=== PATIENT | male | born 1940 | race Caucasian/White ===

== ENCOUNTER 2017-04-11 13:09 | Inpatient (IN) | payer MEDICARE, MEDICAID ==
--- NOTE | 2017-04-11 13:23 | ED PDOC ---
Arrival/HPI - General Chief Complaint: Chest Pain Time Seen by Provider: 04/11/17 13:11 Historian: Patient - History of Present Illness Narrative History of Present Illness (Text): 04/11/17 13:20 A 76 year old male was sent into the emergency department by PMD for worsening shortness of breath and left sided chest pain over the past 5 days. Patient notes a productive cough. He denies any relieving or exacerbating factors. Patient denies any fever, chills, nausea, vomiting, abdominal pain or any other complaints. PMD: Dr. De Santiago Time/Duration: Other (5 days) Symptom Course: Worsening Quality: Other Context: Home Past Medical History - Provider Review Nursing Documentation Reviewed: Yes - Infectious Disease Hx of Infectious Diseases: None - Tetanus Immunization Tetanus Immunization: Unknown - Cardiac Hx Cardiac Disorders: Yes Hx Hypertension: Yes - Pulmonary Hx Chronic Obstructive Pulmonary Disease (COPD): Yes Hx Emphysema: Yes Other/Comment: former smoker - Neurological Hx Neurological Disorder: No - HEENT Hx HEENT Disorder: Yes Hx Cataracts: Yes - Renal Hx Kidney Stones: Yes - Endocrine/Metabolic Hx Endocrine Disorders: No - Hematological/Oncological Hx Cancer: Yes (skin) - Integumentary Hx Dermatological Disorder: Yes (skin cancer) - Musculoskeletal/Rheumatological Hx Falls: No - Gastrointestinal Other/Comment: Hernia - Genitourinary/Gynecological Hx Genitourinary Disorders: Yes - Psychiatric Hx Psychophysiologic Disorder: No Hx Substance Use: No - Surgical History Other/Comment: skin cancer removal - behind right ear - Anesthesia Hx Anesthesia Reactions: No Hx Malignant Hyperthermia: No - Suicidal Assessment Feels Threatened In Home Enviroment: No Family/Social History - Physician Review Nursing Documentation Reviewed: Yes Family/Social History: No Known Family HX Smoking Status: Former Smoker Hx Alcohol Use: Yes Hx Substance Use: No Hx Substance Use Treatment: No Allergies/Home Meds Allergies/Adverse Reactions: Allergies ampicillin Allergy (Verified 01/04/16 14:45) RASH Penicillins Allergy (Verified 01/04/16 14:46) RASH Sulfa (Sulfonamide Antibiotics) Allergy (Verified 01/04/16 14:45) RASH Home Medications: Home Meds Medication Instructions Recorded Confirmed Albuterol Sulfate [Ventolin Hfa] 0.09 mg IH PRN PRN 09/29/13 01/08/16 Fluticasone/Salmeterol 250/50 1 puff IH BID 05/02/14 01/08/16 [Advair Diskus 250/50] Tamsulosin Hydrochloride 0.4 mg PO DAILY 05/02/14 01/08/16 Loratadine 10 mg PO DAILY 08/14/15 01/08/16 Montelukast Sodium [Singulair] 10 mg PO DAILY 08/14/15 01/08/16 Ranitidine HCl 1 tab PO DAILY 08/14/15 01/08/16 Simvastatin [Zocor] 20 mg PO DAILY 08/14/15 01/08/16 Theophylline [Bronkodyl] 200 mg PO BID 08/14/15 01/08/16 Review of Systems - Physician Review All systems were reviewed & negative as marked: Yes - Review of Systems Constitutional: absent: Fevers, Night Sweats Respiratory: SOB, Cough, Sputum Cardiovascular: Chest Pain Gastrointestinal: absent: Abdominal Pain, Nausea, Vomiting Physical Exam Vital Signs Temp Pulse Pulse Resp BP BP Pulse Ox 04/11/17 19:19 99 H 22 128/86 95 04/11/17 16:48 99 H 20 110/72 97 04/11/17 14:22 82 102/59 L 04/11/17 13:21 98.1 F 102 H 20 117/82 97 Appearance: Positive for: Well-Appearing, Non-Toxic, Comfortable Pain Distress: None Mental Status: Positive for: Alert and Oriented X 3 - Systems Exam Head: Present: Atraumatic, Normocephalic Pupils: Present: PERRL Extroacular Muscles: Present: EOMI Conjunctiva: Present: Normal Mouth: Present: Moist Mucous Membranes Neck: Present: Normal Range of Motion Respiratory/Chest: Present: Good Air Exchange, Wheezes (Diffuse wheezing). No: Respiratory Distress, Accessory Muscle Use Cardiovascular: Present: Regular Rate and Rhythm, Normal S1, S2. No: Murmurs Abdomen: Present: Normal Bowel Sounds. No: Tenderness, Distention, Peritoneal Signs Back: Present: Normal Inspection Upper Extremity: Present: Normal Inspection. No: Cyanosis, Edema Lower Extremity: Present: Normal Inspection. No: Edema Neurological: Present: GCS=15, CN II-XII Intact, Speech Normal Skin: Present: Warm, Dry, Normal Color. No: Rashes Psychiatric: Present: Alert, Oriented x 3, Normal Insight, Normal Concentration Medical Decision Making ED Course and Treatment: 04/11/17 13:20 Impression: A 76 year old male sent in by PMD for shortness of breath and chest pain. Patient notes productive cough. Plan: -- Chest xray -- EKG -- Urinalysis -- Duoneb and Solumedrol -- Reassess and disposition Progress Notes: EKG shows sinus tachycardia at 105 BPM with RBBB, no interval changes. Interpreted by me. Report Date : 04/11/2017 14:27:53 Procedure: Chest xray Dictator : Slava Handley MD IMPRESSION: COPD with a lucency in the left upper lobe. No evidence of pneumonia 04/11/17 18:10 pt with persistnet wheezing, also chest pain concerning for cardiac etiology. dr marcia robert. dr gay accepts. failure of outpt management. - Lab Interpretations Lab Results: 04/11/17 14:20 04/11/17 14:20 Lab Results 04/11/17 14:20: Sodium 143, Chloride 102, Potassium 4.0, Carbon Dioxide 30, Anion Gap 15, BUN 16, Creatinine 0.8, Est GFR ( Amer) > 60, Est GFR (Non- Af Amer) > 60, Random Glucose 89, Calcium 9.2, Magnesium 2.0, Total Bilirubin 0.6, AST 22, ALT 28, Alkaline Phosphatase 44, Lactate Dehydrogenase 484, Total Creatine Kinase 106, Troponin I < 0.01, NT-Pro-B Natriuret Pep 160, Total Protein 6.7, Albumin 4.1, Globulin 2.6, Albumin/Globulin Ratio 1.6 04/11/17 14:20: PT 12.1 H, INR 1.12 H, APTT 24.5 04/11/17 14:20: WBC 6.6, RBC 4.67, Hgb 14.2, Hct 42.4, MCV 90.8, MCH 30.4, MCHC 33.5, RDW 13.9, Plt Count 194, MPV 9.3, Gran % 83.3 H, Lymph % (Auto) 10.2 L, Garza % (Auto) 5.7, Eos % (Auto) 0.5 L, Baso % (Auto) 0.3, Gran # 5.53, Lymph # 0.7 L, Garza # 0.4, Eos # 0.0, Baso # 0.02 08/07/17 14:20: pO2 26 L, VBG pH 7.30 L, VBG pCO2 58.0, VBG HCO3 28.5 H, VBG Total CO2 30.3 H, VBG O2 Sat (Calc) 58.0, VBG Base Excess 0.8, VBG Potassium 4.5 , Sodium 155.0 H, Chloride 93.0 L, Glucose 93, Lactate 1.5, FiO2 21.0, Venous Blood Potassium 4.5 I have reviewed the lab results: Yes - RAD Interpretation Radiology Orders: 04/11/17 13:20 CHEST PORTABLE [RAD] Stat - Medication Orders Current Medication Orders: Alprazolam (Xanax) 0.25 mg PO HS [facility] PRN Reason: Protocol Stop: 04/20/17 22:01 Last Admin: 04/13/17 21:37 Dose: 0.25 mg Arformoterol Tartrate (Brovana) 15 mcg IH [id number] [facility] Last Admin: 04/14/17 07:24 Dose: Aspirin (Ecotrin) 81 mg PO DAILY [facility] Atorvastatin Calcium (Lipitor) 20 mg PO DIN [facility] Budesonide (Pulmicort Respules) 0.5 mg IH [id number] [facility] Last Admin: 04/14/17 07:24 Dose: Clopidogrel Bisulfate (Plavix) 75 mg PO DAILY [facility] Last Admin: 04/14/17 06:44 Dose: 75 mg Famotidine (Pepcid) 20 mg PO HS [facility] Last Admin: 04/13/17 21:37 Dose: 20 mg Furosemide (Lasix) 20 mg IVP ONCE ONE Stop: 04/14/17 13:01 Sodium Chloride (Sodium Chloride 0.9%) 1,000 mls @ 100 mls/hr IV .Q10H [facility] Stop: 04/14/17 18:00 Insulin Human Regular (Humulin R Low) 0 units SC ACHS [facility] PRN Reason: Protocol Last Admin: 04/14/17 09:31 Dose: Not Given Non-Admin Reason: NPO Levalbuterol HCl (Xopenex) 0.63 mg IH [id number] PRN PRN Reason: Shortness of Breath Last Admin: 04/13/17 13:09 Dose: 0.63 mg Levofloxacin/Dextrose (Levaquin 750mg) 750 mg IVPB DAILY [facility] Last Admin: 04/13/17 10:57 Dose: 750 mg Loratadine (Claritin) 10 mg PO DAILY [facility] Last Admin: 04/13/17 10:54 Dose: 10 mg Methylprednisolone (Solu-Medrol) 30 mg IVP Q12 [facility] Last Admin: 04/13/17 21:37 Dose: 30 mg Montelukast Sodium (Singulair) 10 mg PO HS [facility] Last Admin: 04/13/17 21:37 Dose: 10 mg Tamsulosin HCl (Flomax) 0.4 mg PO DAILY [facility] Last Admin: 04/13/17 10:55 Dose: 0.4 mg Comments: does not scan Theophylline (Brett-24) 200 mg PO DAILY [facility] Last Admin: 04/13/17 10:53 Dose: 200 mg Comments: does not scan Discontinued Medications Albuterol/Ipratropium (Duoneb 3 Mg/0.5 Mg (3 Ml) Ud) 3 ml IH Q15M [facility] Stop: 04/11/17 14:01 Last Admin: 04/11/17 15:27 Dose: 3 ml Alprazolam (Xanax) 0.25 mg PO ONE PRN Reason: Protocol Stop: 04/12/17 22:01 Last Admin: 04/12/17 21:28 Dose: 0.25 mg Re-Assess: Reassess Psych Meds Document 04/12/17 22:28 FG (Rec: 04/12/17 22:47 FG [id number]) Reassess Psych Med Effective Aminophylline (Aminophylline 25 Mg/Ml Inj) Confirm Administered Dose 250 mg .ROUTE .STK-MED ONE Stop: 04/12/17 12:35 Last Admin: 04/12/17 12:50 Dose: 100 mg Comments: given during stress as per order by Dr. Reynolds Aspirin (Ecotrin) 81 mg PO STAT [facility] Stop: 04/11/17 17:16 Last Admin: 04/11/17 17:30 Dose: 81 mg Aspirin (Ecotrin) 325 mg PO DAILY [facility] Last Admin: 04/14/17 06:44 Dose: 325 mg Atorvastatin Calcium (Lipitor) 10 mg PO DIN [facility] Last Admin: 04/13/17 18:52 Dose: 10 mg Clopidogrel Bisulfate (Plavix) 300 mg PO STAT [facility] Stop: 04/13/17 08:49 Last Admin: 04/13/17 10:56 Dose: 300 mg Clopidogrel Bisulfate (Plavix) Confirm Administered Dose 75 mg .ROUTE .STK-MED ONE Stop: 04/14/17 06:43 Enoxaparin Sodium (Lovenox) 40 mg SC STAT [facility] PRN Reason: Protocol Stop: 04/11/17 17:19 Last Admin: 04/11/17 17:30 Dose: 40 mg Enoxaparin Sodium (Lovenox) 40 mg SC DAILY [facility] PRN Reason: Protocol Stop: 04/13/17 11:00 Last Admin: 04/13/17 10:54 Dose: 40 mg Eptifibatide (Integrilin Bolus) Confirm Administered Dose 40 mg IVP .STK-MED ONE Stop: 04/14/17 09:45 Fentanyl (Fentanyl) Confirm Administered Dose 100 mcg .ROUTE .STK-MED ONE Stop: 04/14/17 09:15 Heparin Sodium (Porcine) (Heparin) Confirm Administered Dose 10,000 units .ROUTE .STK-MED ONE Stop: 04/14/17 09:07 Heparin Sodium (Porcine) (Heparin 1000 Units/500 Ml Ns) Confirm Administered Dose 1,500 mls @ ud IV .STK-MED ONE Stop: 04/14/17 08:49 Nitroglycerin/Dextrose (Nitroglycerin 50 Mg/250 Ml D5w) Confirm Administered Dose 50 mg in 250 mls @ ud IV .STK-MED ONE Stop: 04/14/17 09:08 Iodixanol (Visipaque 320 Mg/Ml 100 Ml) Confirm Administered Dose 100 ml IV .STK- MED ONE Stop: 04/14/17 09:45 Iodixanol (Visipaque 320 Mg/Ml 100 Ml) Confirm Administered Dose 100 ml IV .STK- MED ONE Stop: 04/14/17 10:17 Iohexol (Omnipaque 350mg/Ml 50 Ml) Confirm Administered Dose 50 ml .ROUTE .STK- MED ONE Stop: 04/14/17 08:48 Iohexol (Omnipaque 350 150 Ml) Confirm Administered Dose 150 ml .ROUTE .STK-MED ONE Stop: 04/14/17 08:49 Lidocaine HCl (Lidocaine 2% 20ml Vial) Confirm Administered Dose 20 ml .ROUTE .STK-MED ONE Stop: 04/14/17 08:48 Methylprednisolone (Solu-Medrol) 125 mg IVP STAT [facility] Stop: 04/11/17 13:22 Last Admin: 04/11/17 14:47 Dose: 125 mg Methylprednisolone (Solu-Medrol) 40 mg IVP Q12 [facility] Last Admin: 04/12/17 14:52 Dose: 40 mg Midazolam HCl (Versed Inj) Confirm Administered Dose 2 mg .ROUTE .STK-MED ONE Stop: 04/14/17 09:15 Pantoprazole Sodium (Protonix Ec Tab) 40 mg PO STAT [facility] Stop: 04/11/17 23:29 Last Admin: 04/12/17 00:16 Dose: 40 mg Phenylephrine HCl (Phenylephrine Inj) Confirm Administered Dose 10 mg .ROUTE .STK-MED ONE Stop: 04/14/17 08:48 Regadenoson (Lexiscan) Confirm Administered Dose 0.4 mg IVP .STK-MED ONE Stop: 04/12/17 12:35 Last Admin: 04/12/17 12:45 Dose: 0.4 mg Comments: given during stress test by Dr. Reynolds Theophylline (Brett-Dur) 200 mg PO BID [facility] Verapamil HCl (Verapamil Inj) Confirm Administered Dose 5 mg IVP .STK-MED ONE Stop: 04/14/17 09:07 - Scribe Statement The provider has reviewed the documentation as recorded by the Scribe Disposition/Present on Arrival - Present on Arrival Any Indicators Present on Arrival: No History of DVT/PE: No History of Uncontrolled Diabetes: No Urinary Catheter: No History of Decub. Ulcer: No History Surgical Site Infection Following: None - Disposition Have Diagnosis and Disposition been Completed?: Yes Diagnosis: COPD exacerbation Disposition: HOSPITALIZED Disposition Time: 04:00 Patient Problems: Current Active Problems Problem Status Onset COPD exacerbation Acute Chest pain Acute Condition: FAIR
--- NOTE | 2017-04-11 14:29 | RAD ---
HISTORY: cough COMPARISON: 01/05/2016 FINDINGS: LUNGS: COPD with a lucency in the left upper lobe. No evidence of pneumonia PLEURA: No significant pleural effusion identified, no pneumothorax apparent. CARDIOVASCULAR: Normal. OSSEOUS STRUCTURES: No significant abnormalities. VISUALIZED UPPER ABDOMEN: Normal. OTHER FINDINGS: None. IMPRESSION: COPD with a lucency in the left upper lobe. No evidence of pneumonia
[2017-04-11 14:31] LABS: BASO # 0.02 K/mm3 (0.0-2.0); BASO % 0.3 % (0.0-3.0); EOS % 0.5 % (1.5-5.0); GRAN # 5.53 (1.4-6.5); GRAN % 83.3 % (50.0-68.0); HEMOGLOBIN 14.2 g/dL (14.0-18.0); LYMPH # 0.7 (1.2-3.4); LYMPH % 10.2 % (22.0-35.0); MEAN CELL VOLUME 90.8 fl (80.0-105.0); MEAN CORPUSCULAR HEMOGLOBIN 30.4 pg (25.0-35.0); MEAN CORPUSCULAR HGB CONC 33.5 g/dl (31.0-37.0); MEAN PLATELET VOLUME 9.3 fl (7.0-11.0); MONO # 0.4 (0.1-0.6); MONO % 5.7 % (1.0-6.0); PLATELET COUNT 194 10^3/uL (120.0-450.0); RBC 4.67 10^6/uL (3.5-6.1); RED CELL DISTRIBUTION WIDTH 13.9 % (11.5-14.5); WHITE BLOOD COUNT 6.6 10^3/ul (4.5-11.0)
[2017-04-11 14:33] LABS: VENOUS BLOOD GAS BASE EXCESS 0.8 mmol/L (0.0-2.0); VENOUS BLOOD GAS PO2 26 mm/Hg (30-55)
[2017-04-11 14:41] LABS: ALB/GLOB RATIO 1.6 (1.1-1.8); ALBUMIN 4.1 g/dL (3.0-4.8); ALT/SGPT 28 U/L (7-56); AST/SGOT 22 U/L (15-59); BLOOD UREA NITROGEN 16 mg/dL (7-21); CALCIUM 9.2 mg/dL (8.4-10.5); GFR AFRICAN-AMERICAN > 60; GFR NON-AFRICAN AMERICAN > 60
[2017-04-11] MEDS: Albuterol-Ipratrop 3 mg / 0.5 (3 ml) UD IH SCH ×3 (14:47→15:27)
[2017-04-11 14:53] LABS: B-TYPE NATRIURETIC PEPTIDE 160 pg/mL (0-450)
[2017-04-11 14:54] LABS: TROPONIN I < 0.01 ng/mL
[2017-04-11 15:06] LABS: INR 1.12 (0.93-1.08); PARTIAL THROMBOPLASTIN TIME 24.5 Seconds (23.7-30.8); PROTHROMBIN TIME 12.1 Seconds (9.9-11.8)
[2017-04-11] MEDS ORDERED: Enoxaparin 40 mg Syringe SC STA (17:18)
[2017-04-11 18:39] LABS: URINE BILIRUBIN NEGATIVE (NEGATIVE); URINE BLOOD TRACE-INTACT (NEGATIVE); URINE GLUCOSE (UA) NEGATIVE (NEGATIVE); URINE LEUKOCYTE ESTERASE NEGATIVE Leu/uL (NEGATIVE); URINE NITRATE NEGATIVE (NEGATIVE); URINE PROTEIN NEGATIVE mg/dL (<30 mg/dL); URINE UROBILINOGEN 0.2 E.U./dL (<1 E.U./dL)
[2017-04-11 18:41] LABS: URINE APPEARANCE CLEAR (CLEAR); URINE COLOR YELLOW (YELLOW)
[2017-04-11 19:04] LABS: URINE WBC 0 - 2 /hpf (0-6)
[2017-04-11 19:05] LABS: URINE BACTERIA MOD (NEG)
[2017-04-11 23:02] VITALS: BMI 20.7
[2017-04-11 23:27] LABS: TROPONIN I < 0.01 ng/mL
[2017-04-11] MEDS ORDERED: Pantoprazole 40 mg EC Tab PO STA (23:28)
--- NOTE | 2017-04-11 23:31 | CP.PCM.PN ---
Subjective - Date & Time of Evaluation Date of Evaluation: 04/11/17 Time of Evaluation: 23:29 - Subjective Subjective: Patient was seen at bedside because he complained of heart burn. Denies chest pain, sob, nausea, sweating , palpitations. Nurse Bakari help interprete. No other complaints. Medical record was reviewed. 76 year old male was admitted with chest pain. Has PMH of COPD(Steroid dependent),HTN, nephrolithiasis, GERD, prostate problem , HLD,post auricular skin cancer. Objective - Vital Signs/Intake and Output Vital Signs (last 24 hours): Temp Pulse Resp BP Pulse Ox 97.4 F L 92 H 20 129/74 96 04/11/17 22:30 04/11/17 22:30 04/11/17 22:30 04/11/17 22:30 04/11/17 22:07 - Medications Medications: Current Medications Enoxaparin Sodium (Lovenox) 40 mg SC DAILY [facility] PRN Reason: Protocol Levalbuterol HCl (Xopenex) 0.63 mg IH [id number] PRN PRN Reason: Shortness of Breath Pantoprazole Sodium (Protonix Ec Tab) 40 mg PO STAT [facility] Stop: 04/11/17 23:29 - Labs Labs: PT 12.1 Seconds (9.9-11.8) H 04/11/17 14:20 INR 1.12 (0.93-1.08) H 04/11/17 14:20 APTT 24.5 Seconds (23.7-30.8) 04/11/17 14:20 Lab Studies 04/11/17 04/11/17 04/11/17 Range/Units 22:50 18:20 14:20 WBC (4.5-11.0) 10^3/ul RBC (3.5-6.1) 10^6/uL Hgb (14.0-18.0) g/dL Hct (42.0-52.0) % MCV (80.0-105.0) fl MCH (25.0-35.0) pg MCHC (31.0-37.0) g/dl RDW (11.5-14.5) % Plt Count (120.0-450.0) 10^3/uL MPV (7.0-11.0) fl Gran % (50.0-68.0) % Lymph % (Auto) (22.0-35.0) % Price % (Auto) (1.0-6.0) % Eos % (Auto) (1.5-5.0) % Baso % (Auto) (0.0-3.0) % Gran # (1.4-6.5) Lymph # (1.2-3.4) Price # (0.1-0.6) Eos # (0.0-0.7) Baso # (0.0-2.0) K/mm3 PT (9.9-11.8) Seconds INR (0.93-1.08) APTT (23.7-30.8) Seconds pO2 (30-55) mm/Hg VBG pH (7.32-7.43) VBG pCO2 (40-60) VBG HCO3 (21-28) mmol/l VBG Total CO2 (22-28) mmol.L VBG O2 Sat (Calc) (40-65) % VBG Base Excess (0.0-2.0) mmol/L VBG Potassium (3.6-5.2) mmol/L Sodium 143 (132-148) mmol/L Chloride 102 (98-107) mmol/L Glucose (75-110) mg/dl Lactate (0.7-2.1) mmol/L FiO2 % Potassium 4.0 (3.6-5.0) mmol/L Carbon Dioxide 30 (21-33) mmol/L Anion Gap 15 (10-20) BUN 16 (7-21) mg/dL Creatinine 0.8 (0.5-1.4) mg/dL Est GFR ( Amer) > 60 Est GFR (Non-Af Amer) > 60 Random Glucose 89 (70-110) mg/dL Calcium 9.2 (8.4-10.5) mg/dL Magnesium 2.0 (1.7-2.2) mg/dL Total Bilirubin 0.6 (0.2-1.3) mg/dL AST 22 (15-59) U/L ALT 28 (7-56) U/L Alkaline Phosphatase 44 (38-133) U/L Lactate Dehydrogenase 484 (333-699) U/L Total Creatine Kinase 106 (35-230) U/L Troponin I < 0.01 < 0.01 ng/mL NT-Pro-B Natriuret Pep 160 (0-450) pg/mL Total Protein 6.7 (5.8-8.3) g/dL Albumin 4.1 (3.0-4.8) g/dL Globulin 2.6 gm/dL Albumin/Globulin Ratio 1.6 (1.1-1.8) Venous Blood Potassium (3.6-5.2) mmol/L Urine Color Yellow (YELLOW) Urine Appearance Clear (CLEAR) Urine pH 7.0 (4.7-8.0) Ur Specific [place] 1.010 (1.005-1.035) Urine Protein Negative (<30 mg/dL) mg/dL Urine Glucose (UA) Negative (NEGATIVE) mg/dL Urine Ketones Negative (NEGATIVE) mg/dL Urine Blood Trace-intact H (NEGATIVE) Urine Nitrate Negative (NEGATIVE) Urine Bilirubin Negative (NEGATIVE) Urine Urobilinogen 0.2 (<1 E.U./dL) E.U./dL Ur Leukocyte Esterase Negative (NEGATIVE) Aminata/uL Urine RBC 1 - 3 (0-2) /hpf Urine WBC 0 - 2 (0-6) /hpf Ur Epithelial Cells None (0-5) /hpf Urine Bacteria Mod (NEG) 04/11/17 04/11/17 04/11/17 Range/Units 14:20 14:20 14:20 WBC 6.6 (4.5-11.0) 10^3/ul RBC 4.67 (3.5-6.1) 10^6/uL Hgb 14.2 (14.0-18.0) g/dL Hct 42.4 (42.0-52.0) % MCV 90.8 (80.0-105.0) fl MCH 30.4 (25.0-35.0) pg MCHC 33.5 (31.0-37.0) g/dl RDW 13.9 (11.5-14.5) % Plt Count 194 (120.0-450.0) 10^3/uL MPV 9.3 (7.0-11.0) fl Gran % 83.3 H (50.0-68.0) % Lymph % (Auto) 10.2 L (22.0-35.0) % Price % (Auto) 5.7 (1.0-6.0) % Eos % (Auto) 0.5 L (1.5-5.0) % Baso % (Auto) 0.3 (0.0-3.0) % Gran # 5.53 (1.4-6.5) Lymph # 0.7 L (1.2-3.4) Price # 0.4 (0.1-0.6) Eos # 0.0 (0.0-0.7) Baso # 0.02 (0.0-2.0) K/mm3 PT 12.1 H (9.9-11.8) Seconds INR 1.12 H (0.93-1.08) APTT 24.5 (23.7-30.8) Seconds pO2 26 L (30-55) mm/Hg VBG pH 7.30 L (7.32-7.43) VBG pCO2 58.0 (40-60) VBG HCO3 28.5 H (21-28) mmol/l VBG Total CO2 30.3 H (22-28) mmol.L VBG O2 Sat (Calc) 58.0 (40-65) % VBG Base Excess 0.8 (0.0-2.0) mmol/L VBG Potassium 4.5 (3.6-5.2) mmol/L Sodium 155.0 H (132-148) mmol/L Chloride 93.0 L (98-107) mmol/L Glucose 93 (75-110) mg/dl Lactate 1.5 (0.7-2.1) mmol/L FiO2 21.0 % Potassium (3.6-5.0) mmol/L Carbon Dioxide (21-33) mmol/L Anion Gap (10-20) BUN (7-21) mg/dL Creatinine (0.5-1.4) mg/dL Est GFR ( Amer) Est GFR (Non-Af Amer) Random Glucose (70-110) mg/dL Calcium (8.4-10.5) mg/dL Magnesium (1.7-2.2) mg/dL Total Bilirubin (0.2-1.3) mg/dL AST (15-59) U/L ALT (7-56) U/L Alkaline Phosphatase (38-133) U/L Lactate Dehydrogenase (333-699) U/L Total Creatine Kinase (35-230) U/L Troponin I ng/mL NT-Pro-B Natriuret Pep (0-450) pg/mL Total Protein (5.8-8.3) g/dL Albumin (3.0-4.8) g/dL Globulin gm/dL Albumin/Globulin Ratio (1.1-1.8) Venous Blood Potassium 4.5 (3.6-5.2) mmol/L Urine Color (YELLOW) Urine Appearance (CLEAR) Urine pH (4.7-8.0) Ur Specific [place] (1.005-1.035) Urine Protein (<30 mg/dL) mg/dL Urine Glucose (UA) (NEGATIVE) mg/dL Urine Ketones (NEGATIVE) mg/dL Urine Blood (NEGATIVE) Urine Nitrate (NEGATIVE) Urine Bilirubin (NEGATIVE) Urine Urobilinogen (<1 E.U./dL) E.U./dL Ur Leukocyte Esterase (NEGATIVE) Aminata/uL Urine RBC (0-2) /hpf Urine WBC (0-6) /hpf Ur Epithelial Cells (0-5) /hpf Urine Bacteria (NEG) - Constitutional Appears: Well, No Acute Distress - Head Exam Head Exam: ATRAUMATIC, NORMAL INSPECTION, NORMOCEPHALIC - Eye Exam Eye Exam: Normal appearance - ENT Exam ENT Exam: Normal External Ear Exam - Neck Exam Neck Exam: Normal Inspection - Respiratory Exam Respiratory Exam: NORMAL BREATHING PATTERN. absent: Accessory Muscle Use, Rales , Rhonchi, Wheezes, Respiratory Distress, Stridor - Cardiovascular Exam Cardiovascular Exam: REGULAR RHYTHM, +S1 (Normal.), +S2 (Normal.). absent: JVD - GI/Abdominal Exam GI & Abdominal Exam: Soft (YEs.), Normal Bowel Sounds. absent: Distended, Firm , Guarding, Rigid, Tenderness, Hernia, Mass, Organomegaly, Pulsatile Mass, Rebound - Rectal Exam Rectal Exam: Deferred - Exam Additional comments: Deferred. - Extremities Exam Extremities Exam: Normal Inspection - Back Exam Back Exam: NORMAL INSPECTION - Neurological Exam Neurological Exam: Alert, Awake, Oriented x3 - Psychiatric Exam Psychiatric exam: Normal Affect, Normal Mood - Skin Skin Exam: Normal Color Assessment and Plan - Assessment and Plan (Free Text) Assessment: Heart burn. Chest pain. COPD-On steroid,home oxygen. HTN. HLD. Plan: Protonix 40 mg PO now. Continue present management.
--- NOTE | 2017-04-11 23:43 | CP.PCM.HP ---
History of Present Illness - History of Present Illness History of Present Illness: 04/21/17 Narrative History of Present Illness (Text): 04/11/17 A 76 year old male was sent into the emergency department by PMD for worsening shortness of breath and left sided chest pain over the past 5 days. Patient notes a productive cough. He denies any relieving or exacerbating factors. Patient denies any fever, chills, nausea, vomiting, abdominal pain or any other complaints. seen in er still coughing and sob and chest pain Present on Admission - Present on Admission Any Indicators Present on Admission: No Review of Systems - Review of Systems Systems not reviewed;Unavailable: Respiratory Distress - Constitutional Constitutional: Fatigue, Weakness - EENT Eyes: As Per HPI Ears: As Per HPI Nose/Mouth/Throat: As Per HPI - Cardiovascular Cardiovascular: Chest Pain, Chest Pain with Activity, Dyspnea - Respiratory Respiratory: Cough, Wheezing, Chest Congestion - Gastrointestinal Gastrointestinal: As Per HPI - Genitourinary Genitourinary: As Per HPI Past Patient History - Infectious Disease Hx of Infectious Diseases: None - Tetanus Immunizations Tetanus Immunization: Unknown - Past Social History Smoking Status: Former Smoker - CARDIAC Hx Hypertension: Yes - PULMONARY Hx Respiratory Disorders: Yes Hx Chronic Obstructive Pulmonary Disease (COPD): Yes Hx Emphysema: Yes - NEUROLOGICAL Hx Neurological Disorder: No - HEENT Hx HEENT Problems: Yes Hx Cataracts: Yes - RENAL Hx Kidney Stones: Yes - ENDOCRINE/METABOLIC Hx Endocrine Disorders: No - HEMATOLOGICAL/ONCOLOGICAL Hx Cancer: Yes (skin) - INTEGUMENTARY Hx Dermatological Problems: Yes (skin cancer) - MUSCULOSKELETAL/RHEUMATOLOGICAL Hx Falls: No - GASTROINTESTINAL Other/Comment: Hernia - GENITOURINARY/GYNECOLOGICAL Hx Genitourinary Disorders: Yes - PSYCHIATRIC Hx Psychophysiologic Disorder: No Hx Substance Use: No - SURGICAL HISTORY Other/Comment: skin cancer removal - behind right ear - ANESTHESIA Hx Anesthesia Reactions: No Hx Malignant Hyperthermia: No Meds Allergies/Adverse Reactions: Allergies Allergy/AdvReac Type Severity Reaction Status Date / Time ampicillin Allergy RASH Verified 01/04/16 14:45 Penicillins Allergy RASH Verified 01/04/16 14:46 Sulfa (Sulfonamide Allergy RASH Verified 01/04/16 14:45 Antibiotics) Physical Exam - Constitutional Appears: Well, Older Than Stated Age, Chronically Ill - Head Exam Head Exam: ATRAUMATIC, NORMAL INSPECTION, NORMOCEPHALIC - Eye Exam Eye Exam: EOMI, Normal appearance, PERRL Pupil Exam: NORMAL ACCOMODATION, PERRL - ENT Exam ENT Exam: Mucous Membranes Moist, Normal Exam - Neck Exam Neck exam: Positive for: Normal Inspection - Respiratory Exam Respiratory Exam: Prolonged Expiratory Phase, Wheezes - Cardiovascular Exam Cardiovascular Exam: REGULAR RHYTHM, +S1, +S2 - GI/Abdominal Exam GI & Abdominal Exam: Normal Bowel Sounds, Soft. absent: Tenderness - Rectal Exam Rectal Exam: NORMAL INSPECTION - Exam Exam: Circumcision, NORMAL INSPECTION External exam: NORMAL EXTERNAL EXAM Speculum exam: NORMAL SPECULUM EXAM Bimanual exam: NORMAL BIMANUAL EXAM - Extremities Exam Extremities exam: Positive for: normal inspection - Back Exam Back exam: NORMAL INSPECTION - Neurological Exam Neurological exam: Alert, CN II-XII Intact, Normal Gait, Oriented x3, Reflexes Normal - Psychiatric Exam Psychiatric exam: Normal Affect, Normal Mood - Skin Skin Exam: Dry, Intact, Normal Color, Warm Results - Vital Signs Recent Vital Signs: Last Vital Signs Temp 97.4 F L 04/11/17 22:30 Pulse 92 H 04/11/17 22:30 Resp 20 04/11/17 22:30 BP 129/74 04/11/17 22:30 Pulse Ox 96 04/11/17 22:07 - Labs Result Diagrams: 04/11/17 14:20 04/11/17 14:20 Labs: Laboratory Results - last 24 hr 04/11/17 04/11/17 18:20 22:50 Troponin I < 0.01 Urine Color Yellow Urine Appearance Clear Urine pH 7.0 Ur Specific [place] 1.010 Urine Protein Negative Urine Glucose (UA) Negative Urine Ketones Negative Urine Blood Trace-intact H Urine Nitrate Negative Urine Bilirubin Negative Urine Urobilinogen 0.2 Ur Leukocyte Esterase Negative Urine RBC 1 - 3 Urine WBC 0 - 2 Ur Epithelial Cells None Urine Bacteria Mod Assessment & Plan (1) Chest pain Status: Acute - Assessment and Plan (Free Text) Assessment: 04/11/17 13:20 A 76 year old male was sent into the emergency department by PMD for worsening shortness of breath and left sided chest pain over the past 5 days. Patient notes a productive cough. He denies any relieving or exacerbating factors. Patient denies any fever, chills, nausea, vomiting, abdominal pain or any other complaints . admitted pt in tele , cardiology consult and pulmonary consult called . dr kennedy saw the pt pt had h/o asthma . copd . home meds started
--- NOTE | 2017-04-12 02:07 | CON ---
DATE: 04/11/2017 CARDIOLOGY CONSULTATION REASON FOR THE CONSULTATION: Chest pain, exacerbation of COPD, rule out CAD, cardiac evaluation. HISTORY OF PRESENT ILLNESS: A 76-year-old male with past medical history of emphysema, ex-smoker 3-pack a day, for more than [id number]-[id number], on home oxygen and albuterol 2 to 4 hours a day, went to Dr. De Santiago because of the shortness of breath. Also complained of sometime left-sided chest pain occasionally. The patient was referred to ER for cardiac evaluation and admission. The patient denies any chest pain now, but had pain when he went to see Dr. De Santiago. PAST MEDICAL HISTORY: Significant for hypertension, hyperlipidemia, COPD, and emphysema. MEDICATIONS: Current medication at home; the patient was taking Levaquin, theophylline, hydrochlorothiazide, Flomax, simvastatin 20 mg daily, ranitidine 150 mg daily, prednisone 40 mg daily, Singulair 10 mg daily, loratadine 10 mg daily, Advair one puff b.i.d., and albuterol inhaler. ALLERGIES: ALLERGY TO AMPICILLIN, ALLERGY TO PENICILLIN, ALLERGY TO SULFA. SOCIAL HISTORY: Ex-smoker, quit 15 years ago, used 3-pack a day for more than 30 years. Denies any history of alcohol abuse. FAMILY HISTORY: Questionable history of coronary artery disease, not sure. REVIEW OF SYSTEMS: Negative except as per HPI. PHYSICAL EXAMINATION VITAL SIGNS: Height of the patient is 5 feet 6 inches, weight of the patient is 134 pounds, body mass index 21.6 kg/m2. Temperature afebrile, heart rate of 102, and blood pressure 117/82. HEENT: PERRLA. Extraocular muscles are intact. NECK: Supple. No carotid bruits or thyromegaly. LUNGS: Chest clear to auscultation. HEART: S1 and S2. Regular. ABDOMEN: Soft. EXTREMITIES: Clubbing and cyanosis negative. LABORATORY DATA: Blood workup as follows: WBC 6.6, hemoglobin 14.2, hematocrit 42.4, and platelet count 194. Chemistry shows sodium 142, potassium 4, chloride 102, carbon dioxide of 30, anion gap of 15, BUN 6, and creatinine 0.8. Troponin is 0.01. EKG shows right bundle branch block, no acute ST-T changes noted, more suggestive of COPD. IMPRESSION: The patient is a 76-year-old male, ex-smoker, history of emphysema, bronchiectasis, on prednisone, on home oxygen, on albuterol inhaler, most likely secondary to acute exacerbation of chronic obstructive pulmonary disease. Given the multiple risk factor for coronary artery disease, suggest echo stress test. We will do the lipid profile, TSH, hemoglobin A1c. Further recommendation after the stress test. We will follow with you. Thank you Dr. De Santiago for providing me the opportunity in taking care of the patient. Emani Reynolds MD
[2017-04-12] MEDS: Arformoterol 15 mcg/2 ml Inh Sol IH SCH ×2 (07:01→19:26)
[2017-04-12] MEDS: Budesonide 0.5 mg/2 ml Inhal Susp UD IH SCH ×2 (07:01→19:27)
[2017-04-12 08:26] LABS: EOS % 0.2 % (1.5-5.0); GRAN # 4.52 (1.4-6.5); GRAN % 77.9 % (50.0-68.0); HEMOGLOBIN 14.2 g/dL (14.0-18.0); LYMPH # 0.9 (1.2-3.4); LYMPH % 15.7 % (22.0-35.0); MEAN CELL VOLUME 89.4 fl (80.0-105.0); MEAN CORPUSCULAR HEMOGLOBIN 30.1 pg (25.0-35.0); MEAN CORPUSCULAR HGB CONC 33.6 g/dl (31.0-37.0); MEAN PLATELET VOLUME 9.5 fl (7.0-11.0); MONO # 0.4 (0.1-0.6); MONO % 6.2 % (1.0-6.0); PLATELET COUNT 201 10^3/uL (120.0-450.0); RBC 4.72 10^6/uL (3.5-6.1); RED CELL DISTRIBUTION WIDTH 13.7 % (11.5-14.5); WHITE BLOOD COUNT 5.8 10^3/ul (4.5-11.0)
[2017-04-12 08:39] LABS: ALB/GLOB RATIO 1.4 (1.1-1.8); ALBUMIN 3.7 g/dL (3.0-4.8); ALT/SGPT 27 U/L (7-56); AST/SGOT 23 U/L (15-59); BLOOD UREA NITROGEN 15 mg/dL (7-21); CALCIUM 9.2 mg/dL (8.4-10.5); GFR AFRICAN-AMERICAN > 60; GFR NON-AFRICAN AMERICAN > 60; HDL CHOLESTEROL 61 mg/dL (29-60)
[2017-04-12] MEDS: Insulin Reg-LOW-Coverage SC SCH ×3 (08:47→21:59)
[2017-04-12 08:50] LABS: LDL CHOLESTEROL 107 mg/dL (0-129)
[2017-04-12] MEDS ORDERED: MethylPREDNISolone 40 mg Vial IVP SCH (10:00)
[2017-04-12] MEDS ORDERED: Theophylline 200 mg ER Tab PO SCH (10:00)
[2017-04-12] MEDS ORDERED: Fluticasone-Salmeterol 250-50mcg Diskus IH SCH (10:00)
--- NOTE | 2017-04-12 10:43 | PN ---
DATE: 04/12/2017 REASON FOR CONSULTATION: Followup chest pain, exacerbation of COPD, rule out CAD, and cardiac evaluation. SUBJECTIVE: The patient denies any chest pain. Denies any shortness of breath. Denies any palpitations. Today, he feels much better. PHYSICAL EXAMINATION: GENERAL: Lying flat in the bed, not in apparent distress. VITAL SIGNS: Temperature afebrile, heart rate 86, and blood pressure 129/74. HEENT: PERRLA. Extraocular muscles intact. NECK: Supple. No carotid bruit or thyromegaly. CHEST: Clear to auscultation. HEART: S1 and S2 regular. ABDOMEN: Soft. EXTREMITIES: Clubbing and cyanosis negative. LABORATORY DATA: Blood workup as follows; WBC 5.8, hemoglobin 14.2, hematocrit 42.2, and platelet count 201. Chemistry shows sodium 139, potassium 4.5, chloride 103, carbon dioxide 29, anion gap 12, BUN 15, creatinine 0.7, and blood sugar 113. TSH 0.35, triglycerides 79, total cholesterol 178, LDL 107, HDL 61, and troponin 0.01 x2 negative. IMPRESSION: Chest pain, so far no evidence of acute , no evidence of acute myocardial infarction, exacerbation of chronic obstructive pulmonary disease, history of chronic obstructive pulmonary disease, EKG also consists of no sinus right ventricular hypertrophy, hypertension, hyperlipidemia, and history of smoking 81-xirg-hgrk smoking, 3 pack a day for more than 30 years. RECOMMENDATIONS: Continue treatment for COPD as by Dr. De Santiago treatment. Continue DVT prophylaxis. Continue aspirin. Continue atorvastatin, stress test today and echo and further recommendation of the stress test. We will follow with you. Thank you Dr. De Santiago for providing me the opportunity in taking care of patient, Morgan Flores. We will follow with you. Emani Reynolds MD
[2017-04-12] MEDS ORDERED: Aminophylline 25 mg/ml Inj ONE (12:34)
[2017-04-12] MEDS: Enoxaparin 40 mg Syringe SC SCH (14:51)
[2017-04-12] MEDS: levoFLOXacin 750 mg in D5W 150 ML BAG IVPB SCH (14:52)
[2017-04-12] MEDS: Theophylline 100mg ER 24 hrs Cap PO SCH (14:53)
[2017-04-12] MEDS: Levalbuterol 0.63 MG/3 ML Inhal Soln UD IH PRN ×2 (15:23→19:27)
[2017-04-12] MEDS: MethylPREDNISolone 40 mg Vial IVP SCH (21:29)
--- NOTE | 2017-04-12 22:40 | CARD ---
APPROVED REPORT Protocol: LEXISCAN Test Type: Lexiscan Sestamibi Stress Test Attending Physician: Dr. Emani Reynolds Referring Physician: Dr. Sanna De Santiago Test Indications: Chest Pain Height:5 ft 6 in Weight:178lbs Medications: Atorvastatin, Brovana, Pulmicort, Lovenox, Pepcid, Insulin, Xopenex, Levaquin, Claritin, Solumedrol, Singulair, Flomax Medical History: 76 y/o male with a history of htn, hyperlipidemia, emphysema Target HR: 145 bpm Resting ECG: normal Resting Heart Rate: 80 bpm Resting Blood Pressure: 110/62mmHg Submaximum (85%): 123 bpm PROCEDURE Pharmacologic stress testing was performed using 0.4mg per 5ml of regadenoson given intravenously over 7-10 seconds. Reversal agent aminophyline 100 mg, given intravenously for Other. POST EXERCISE Reason for Termination: Protocol completed Target HR: No Max HR: 86 bpm 76% of Maximum Predicted HR: 145 bpm Exercise duration: 00:22 min:sec, 0 Stage Exercise capacity: 1.0METs Max Blood Pressure: 110/62mmHg Blood Pressure response to exercise: normal resting BP - appropriate response Heart Rate response to exercise: appropriate Chest Pain: No, none Angina index: 0 Arrhythmia: No, none ST Change: No, none Deviation: 0 mm TEST SUMMARY [id number]. INFUSIONDOSE 100:[id number]/.0. [id number]/60.3. INTERPRETATION Stress EKG Conclusion: Negative IV lexiscan for ischemia and for chest p[ain, Nuclear scan to follow. Signed by Emani Reynolds Electronically Approved: 04/12/2017 14:01:47 EXAM: Myocardial Perfusion REST/STRESS Stress Test Type: Pharmacologic Imaging Protocol Rest Spect myocardial perfusion imaging was performed in supine position 45 minutes following the injection of 10.3 mCi of Tc-99 Myoview. At peak stress, the patient was injected intravenously with 30.5mCi of Tc-99 tetrofosmin after an infusion time of 0 minutes and 10 seconds. Gated Stress Spect was performed 80 minutes after intravenous Tc-99 Myoview injection. The images were gated to evaluate regional wall motion and calculate ventricular ejection fraction.Images were reconstructed using backfilter projection method in short horizontal and verticle long axis. Spect slices were generated. LV Perfusion The quality of the study is good. The left ventricle is normal in size. The right ventricle is unremarkable. The lung uptake is normal. The distribution of tracer reveals a focal hot spot in the anterolateral wall and a moderate sized area of moderately to severely decreased perfusion involving mid to basal inferior and inferolateral simon on the stress study. The remainder of the LV myocardium is unremarkable. The rest myocardial perfusion study shows improvement of defects. Wall Motion Wall motion study shows normal contractility of the left ventricle. LVEF = 66%. Conclusion 1. Abnormal SPECT myocardial perfusion study. 2. Partially reversible, inferior and inferolateral defects are suspicious of ischemia. 3. Focal hot spot is a normal variant. 4. Normal overall LV function without wall motion abnormality.
--- NOTE | 2017-04-12 23:57 | PN ---
SUBJECTIVE: The patient is seen and examined on the bedside, having oxygen, coughing, shortness of breath, chest pain is better. No nausea, vomiting, or diarrhea. No hematuria or hematochezia.. No headache, no dizziness. No swelling of the legs. PHYSICAL EXAMINATION: VITAL SIGNS: Temperature 98, pulse is 65, blood pressure 125/80, respiratory rate 20. HEENT: Head is normocephalic and atraumatic. Eyes; PERRLA. Extraocular muscles intact. Conjunctivae clear. Nose patent. Mucous membrane moist. NECK: Supple. No carotid bruit, JVD or thyromegaly. CHEST: Bilaterally symmetrical. HEART: S1 and S2 positive. LUNGS: Positive wheezing bilaterally. ABDOMEN: Soft. Bowel sounds present. No organomegaly. EXTREMITIES: No edema. No cyanosis. NEUROLOGIC: The patient is awake and alert. Moving all 4 extremities. No focal deficit. MEDICATIONS: Brovana, Claritin, Flomax, insulin Levaquin, Lipitor, Lovenox, Pepcid, Pulmicort, Singulair, Theophylline, Xanax, and Xopenex. LABORATORY DATA: White blood cell is 5.8, hemoglobin 14.2, hematocrit 42.2, platelet count 201. Sodium 139, potassium 4.5, BUN 15, creatinine 1.7, glucose 113, TSH 0.35. ASSESSMENT AND PLAN: Mr. Sandra Mora is a 76-year-old male with hyperglycemia, hypercholesterolemia, hypothyroidism, came with chest pain, went for myocardial stress test, echocardiography results are pending, seen by Dr. Reynolds. According to Dr. Reynolds, there is no evidence for acute myocardial infarction. As such, the patient has chronic obstructive pulmonary disease, history of chronic obstructive lung disease, history of hypertension, history of smoking, quit a long time ago, used to smoke 3 packs a day for more than 30 years. Bronchitis. Continue antibiotics, inhaled bronchodilator Lipitor. Awaiting for the results of the stress test. According to the patient, he is very anxious, for 3 nights he did not have sleep. I give him Xanax one dose 0.25 mg, we will follow up with that. Getting proton pump inhibitor for heartburn. Gastrointestinal and deep vein thrombosis prophylaxis. Repeat labs. We will follow up. Sanna De Santiago MD
--- NOTE | 2017-04-12 23:58 | CARD ---
APPROVED REPORT EKG Measurement Heart [id number] <Conclusion> Sinus tachycardia Right atrial enlargement Right ventricular hypertrophy Possible Lateral infarct, age undetermined Abnormal ECG
--- NOTE | 2017-04-13 03:40 | CON ---
DATE: 04/12/2017 REFERRING PHYSICIAN: Dr. De Santiago. REASON FOR CONSULTATION: Chronic obstructive lung disease, bronchiectasis, pulmonary fibrosis. HISTORY OF PRESENT ILLNESS: This is a 76-year-old gentleman, well known to me from office and previous admission with multiple medical issues, had severe obstructive lung disease, bronchiectasis, pulmonary hypertension, hypertension, seen at Dr. De Santiago's office, having some chest pain with increased shortness of breath. He was sent to the ER, where he got admitted, seen by cardiology, cardiac workup is in progress. No hemoptysis, no hematemesis. PAST MEDICAL HISTORY: Chronic obstructive lung disease, bronchiectasis, pulmonary hypertension, lung nodule, hypertension, hyperlipidemia. ALLERGIES: TO AMPICILLIN, PENICILLIN, AND SULFA. FAMILY HISTORY: Positive for coronary artery disease. SOCIAL HISTORY: Stopped smoking many years ago. Denies any alcohol use. MEDICATIONS: The patient is on Brovana 15 mcg inhaler twice a day, Claritin 10 mg daily, Flomax 0.4 mg daily, insulin coverage, Levaquin 750 mg daily, Lipitor 10 mg daily, Lopressor 40 mg daily, Pepcid 20 mg daily, Pulmicort inhaler twice a day, Singulair 10 mg daily, Solu-Medrol 30 mg q.12 hours, Brett-Dur extended release 200 mg daily, Xanax 0.25 mg at bedtime, Xopenex inhaler q.6 hours p.r.n. LABORATORY DATA: Shows hemoglobin 14.2, hematocrit 42.2, WBC 5.6, platelets 201. INR 1.12, PTT 25. Blood gas on admission showed the patient's VBG, pH 7.30, pCO2 of 50, pO2 of 26. Sodium 139, potassium 4.5, chloride 103, bicarbonate 29, BUN 15, creatinine 0.7, glucose 113, hemoglobin A1c 6.2, calcium 9.2, phosphorus 3.3, magnesium 2.0, AST 23, ALT 27, alkaline phosphatase is 39, albumin is 3.7, cholesterol is 178, TSH 0.35. IMPRESSION AND PLAN: Atypical chest pain, coronary artery disease being ruled out, chronic obstructive lung disease, pulmonary fibrosis, lung nodules, hyperlipidemia, oxygen dependent, steroid dependent, agree with present treatment. Continue IV and inhaled bronchodilators. Gastric prophylaxis, DVT prophylaxis. Cardiac workup in progress. Thank you and we will follow with you. Emani Phipps MD
[2017-04-13] MEDS: Insulin Reg-LOW-Coverage SC SCH ×4 (04:58→19:59)
[2017-04-13] MEDS: Budesonide 0.5 mg/2 ml Inhal Susp UD IH SCH ×2 (08:33→19:45)
[2017-04-13] MEDS: Arformoterol 15 mcg/2 ml Inh Sol IH SCH ×2 (08:33→19:45)
[2017-04-13] MEDS: Levalbuterol 0.63 MG/3 ML Inhal Soln UD IH PRN ×2 (08:33→13:09)
[2017-04-13] MEDS: Theophylline 100mg ER 24 hrs Cap PO SCH (10:53)
[2017-04-13] MEDS: MethylPREDNISolone 40 mg Vial IVP SCH ×2 (10:53→21:37)
[2017-04-13] MEDS: Enoxaparin 40 mg Syringe SC SCH (10:54)
[2017-04-13] MEDS: Aspirin 325 mg EC Tablets PO SCH (10:56)
[2017-04-13] MEDS: levoFLOXacin 750 mg in D5W 150 ML BAG IVPB SCH (10:57)
--- NOTE | 2017-04-13 13:53 | PN ---
DATE: 04/13/2017 REASON FOR CONSULTATION: Followup chest pain, abnormal stress test, cardiac evaluation, exacerbation of COPD. SUBJECTIVE: The patient complain of wheezing and shortness of breath. Denies any chest pain now. OBJECTIVE: GENERAL: Mild respiratory distress. VITAL SIGNS: As follows, temperature afebrile, heart rate 77, blood pressure 103/73. HEENT: PERRLA intact. NECK: Supple. No carotid bruit or thyromegaly. CHEST: Clear to auscultation. HEART: S1 and S2 regular. ABDOMEN: Soft. EXTREMITIES: Clubbing and cyanosis negative. LABORATORY DATA: Blood workup as follows; WBC 5.8, hemoglobin 14.2, hematocrit 42.2, and platelet count 201. Chemistry shows sodium 139, potassium 4.5, chloride 103, carbon dioxide 29, anion gap 12, BUN 15, creatinine 0.7. Stress test abnormal suspicious for ischemia, ejection fraction 66%. Inferolateral reversible ischemia. IMPRESSION: A 76-year-old male, heavy tobacco abuse history of chronic obstructive pulmonary disease on home O2 admitted with acute exacerbation of COPD. Yesterday, the patient underwent his stress test. There is abnormal suspicion of ischemia. The patient scheduled to cardiac catheterization tomorrow. The patient is still actively breathing. RECOMMENDATIONS: We will discuss with pulmonary to stabilize pulmonary status. The patient can be flat on the bed. The patient actively breathing now. If the patient remain to stable and able to lay flat on the cath table, we will do the cardiac catheterization tomorrow. We will load with aspirin and Plavix. Keep n.p.o. after 12 midnight for possible cardiac catheterization tomorrow if the respiratory status remain stable. Thank you Dr. De Santiago for providing me the opportunity in taking care of patient, Sandra Mora. Emani Reynolds MD
--- NOTE | 2017-04-13 17:01 | CARD ---
APPROVED REPORT EXAM: Two-dimensional and M-mode echocardiogram with Doppler and color Doppler. INDICATION Chest Pain 2D DIMENSIONS Left Atrium (2D)3.5 (1.6-4.0cm)IVSd0.9 (0.7-1.1cm) LVDd4.2 (3.9-5.9cm)PWd0.8 (0.7-1.1cm) LVDs2.7 (2.5-4.0cm)FS (%) 35.6 % LVEF (%)65.5 (>50%) M-Mode DIMENSIONS Aortic Root3.30 (2.2-3.7cm)Aortic Cusp Exc.1.50 (1.5-2.0cm) Aortic Valve AoV Peak Jmrmenbj856.0cm/Lotus Peak GR.5mmHg Mitral Valve MV E Howpjyyx17.3cm/sMV A Nccjzhdi88.9cm/sE/A ratio0.7 TDI Lateral E' Peak V10.00cm/sMedial E' Peak V8.29cm/sE/Lateral E'5.6 E/Medial E'6.8 Pulmonary Valve PV Peak Rmklkzda92.2cm/sPV Peak Grad.2mmHg Tricuspid Valve TR Peak Yjlwnfpj685an/sRAP JYUEVRLH79yiAjPK Peak Gr.45mmHg [id number] LEFT VENTRICLE The left ventricle is normal size. There is normal left ventricular wall thickness. The left ventricular function is normal.EF-60-65% There is normal LV segmental wall motion. Transmitral Doppler flow pattern is Grade III-reversible restrictive diastolic dysfunction. No left ventricle thrombus noted on this study. There is no ventricular septal defect visualized. There is no left ventricular aneurysm. There is no mass noted in the left ventricle. RIGHT VENTRICLE The right ventricle is moderately dilated. The right ventricle is mildly hypertrophied. Systolic function of RV is moderately reduced. ATRIA The left atrium size is normal. The right atrium is borderline dilated. The interatrial septum is intact with no evidence for an atrial septal defect. AORTIC VALVE The aortic valve is calcified and displays decreased opening. There is trace aortic regurgitation. Mild VS aortic Sclerosis There is no aortic valvular vegetation. MITRAL VALVE The mitral valve is thickened but opens well. Mitral regurgitation is mild. There is no mitral valve stenosis. There is no evidence of mitral valve prolapse. TRICUSPID VALVE The tricuspid valve leaflets are thickened , but open well. There is mild to moderate tricuspid regurgitation.RVSP-55 mmof hg. There is mild to moderate pulmonary hypertension. There is no tricuspid valve stenosis. There is no tricuspid valve prolapse or vegetation. PULMONIC VALVE The pulmonary valve is normal in structure. There is trace pulmonic valvular regurgitation. There is no pulmonic valvular stenosis. GREAT VESSELS The aortic root is normal in size. The ascending aorta is normal in size. The pulmonary artery is normal. The IVC is normal in size and collapses >50% with inspiration. PERICARDIAL EFFUSION There is no pleural effusion. There is no pericardial effusion. <Conclusion> The left ventricle is normal size. There is normal left ventricular wall thickness. The left ventricular function is normal.EF-60-65% There is trace aortic regurgitation. Mitral regurgitation is mild. There is mild to moderate tricuspid regurgitation.RVSP-55 mmof hg. There is mild to moderate pulmonary hypertension. The IVC is normal in size and collapses >50% with inspiration. There is no pericardial effusion. The right ventricle is moderately dilated. Systolic function of RV is moderately reduced.
--- NOTE | 2017-04-13 18:46 | PN ---
DATE: 04/13/2017 SUBJECTIVE: The patient is lying in bed, head at 45 degrees. . No cough or shortness of breath. No active chest pain at the present time. No nausea, vomiting, or diarrhea. No leg pain or leg swelling. PHYSICAL EXAMINATION: VITAL SIGNS: Temperature 98, heart rate 81, respiratory rate 20, blood pressure 110/78, and pulse ox 97% on nasal cannula. HEENT: Moist mucous membrane. NECK: Supple. No JVD. HEART: S1 and S2. LUNGS: Bilateral wheezes. ABDOMEN: Soft and nontender. No organomegaly. EXTREMITIES: There is no edema. NEUROLOGIC: Awake, alert. Follow simple commands. LABORATORY DATA: Reviewed and noted blood sugars this morning is 109. TSH 0.35. Myocardial stress test suggestive of reversible ischemia. Echocardiogram report is pending. MEDICATIONS: He is on Brovana 15 mcg inhaler twice a day, Claritin 10 mg daily, Ecotrin 325 mg daily, Flomax 0.4 mg daily, insulin coverage, Levaquin 750 mg daily, Lipitor 10 mg daily, Pepcid 20 mg daily, Plavix 75 mg daily, Pulmicort inhaler twice a day, Singulair 10 mg daily, Solu-Medrol 30 mg q.12 hours, Brett-Dur extended release 200 mg daily, and Xopenex inhale q.6 hours p.r.n. IMPRESSION AND PLAN: Chronic obstructive lung disease, coronary artery disease, pulmonary fibrosis, lung nodule, and hyperlipidemia. From pulmonary point of view, he has done okay. Continue bronchodilator, keep head elevated at 45 degrees, on antibiotics, schedule for cardiac catheterization, gastric prophylaxis, and DVT prophylaxis. We need to follow respiratory status closely, if sedated. Thank you and we will follow up with you. Emani Phipps MD
--- NOTE | 2017-04-14 05:37 | PN ---
SUBJECTIVE: The patient is seen and examined at bedside, sitting on the bed, still coughing and heavy shortness of breath. No nausea, vomiting, diarrhea. No hematuria or hematochezia. No swelling of the legs. No headache, no dizziness, but still complaining pressure in the chest. PHYSICAL EXAMINATION: VITAL SIGNS: Temperature 98, heart rate 81, respiratory rate 20, blood pressure 110/78, pulse oximetry 97% on nasal cannula. HEENT: Head; normocephalic and atraumatic. Eyes; PERRLA. Extraocular muscles are intact. Conjunctivae clear. Nose patent. Mucous membranes moist. NECK: Supple. No carotid bruits or thyromegaly. CHEST: Bilaterally symmetrical. HEART: S1 and S2 positive. LUNGS: Bilateral wheezing. ABDOMEN: Soft and nontender, no organomegaly. EXTREMITIES: No edema, no cyanosis. NEUROLOGIC: The patient is awake and alert. Follow simple commands. LABORATORY DATA: We do not have recent labs, but reviewed old labs. TSH 0.5, blood sugar 109. MEDICATIONS: Brovana, Claritin, Ecotrin, Flomax, insulin, Levaquin, Lipitor, Pepcid, Plavix, Pulmicort, Singulair, Solu-Medrol, Brett-Dur, Xopenex. ASSESSMENT AND PLAN: Mr. Sandra Mora is a 76-year-old male with multiple medical problems, chronic lung disease, came with chest pain, significant coronary artery disease, pulmonary fibrosis, lung density, hypercholesterolemia. The patient is getting tapering doses of steroid, bronchodilators, antibiotics, scheduled for cardiac catheterization by Dr. eRynolds, gastric prophylaxis, deep vein thrombosis prophylaxis. GI and DVT prophylaxis. Review Dr. Reynolds and Dr. Phipps's notes and we will followup. Sanna De Santiago MD
[2017-04-14 06:44] LABS: BASO # 0.01 K/mm3 (0.0-2.0); BASO % 0.1 % (0.0-3.0); GRAN # 5.89 (1.4-6.5); GRAN % 83.8 % (50.0-68.0); HEMOGLOBIN 14.7 g/dL (14.0-18.0); LYMPH # 0.8 (1.2-3.4); LYMPH % 11.1 % (22.0-35.0); MEAN CELL VOLUME 89.5 fl (80.0-105.0); MEAN CORPUSCULAR HEMOGLOBIN 30.2 pg (25.0-35.0); MEAN CORPUSCULAR HGB CONC 33.7 g/dl (31.0-37.0); MEAN PLATELET VOLUME 9.2 fl (7.0-11.0); MONO # 0.4 (0.1-0.6); PLATELET COUNT 220 10^3/uL (120.0-450.0); RBC 4.87 10^6/uL (3.5-6.1); RED CELL DISTRIBUTION WIDTH 13.9 % (11.5-14.5)
[2017-04-14] MEDS: Aspirin 325 mg EC Tablets PO SCH (06:44)
[2017-04-14 07:00] LABS: BLOOD UREA NITROGEN 25 mg/dL (7-21); CALCIUM 9.1 mg/dL (8.4-10.5); GFR AFRICAN-AMERICAN > 60; GFR NON-AFRICAN AMERICAN > 60
[2017-04-14] MEDS: Arformoterol 15 mcg/2 ml Inh Sol IH SCH ×2 (07:24→19:37)
[2017-04-14] MEDS: Budesonide 0.5 mg/2 ml Inhal Susp UD IH SCH ×2 (07:24→19:37)
[2017-04-14] MEDS ORDERED: Iohexol 350mgl/ml 50 ML ONE (08:47)
[2017-04-14] MEDS ORDERED: Phenylephrine 10 mg/ml Inj ONE (08:47)
[2017-04-14] MEDS ORDERED: Lidocaine 2% Inj (20ml) ONE (08:47)
[2017-04-14] MEDS ORDERED: Nitroglycerin 50mg in D5W 50 MG/250 ML BOTTLE IV ONE (09:07)
[2017-04-14] MEDS ORDERED: Midazolam 2 MG/2 ML VIAL ONE (09:14)
[2017-04-14] MEDS: Insulin Reg-LOW-Coverage SC SCH ×4 (09:31→21:45)
[2017-04-14] MEDS ORDERED: Iodixanol 320 MG/ML 100 ML BOTTLE IV ONE ×2 (09:44→10:16)
[2017-04-14] MEDS ORDERED: Eptifibatide 20 mg/10mL Inj IVP ONE (09:44)
[2017-04-14] MEDS ORDERED: Sodium Chloride 0.9% 1,000 ML IV SCH (11:00)
[2017-04-14] MEDS: Theophylline 100mg ER 24 hrs Cap PO SCH (11:36)
[2017-04-14] MEDS: MethylPREDNISolone 40 mg Vial IVP SCH ×2 (11:37→21:45)
[2017-04-14] MEDS: levoFLOXacin 750 mg in D5W 150 ML BAG IVPB SCH (11:38)
[2017-04-14] MEDS ORDERED: A C T ELECTRONICS XX ONE (13:02)
--- NOTE | 2017-04-14 15:01 | PN ---
REASON FOR CONSULTATION: Followup chest pain, abnormal stress test, COPD exacerbation, status post angioplasty of the circumflex. SUBJECTIVE: The patient is waiting to go for the left heart cath. Denies any chest pain, shortness of breath, any palpitation. PHYSICAL EXAMINATION: VITAL SIGNS: Temperature afebrile, heart rate 85, blood pressure 103/69. HEENT: PERRLA intact. NECK: Supple. No carotid bruit. No thyromegaly. CHEST: Clear to auscultation. HEART: S1 and S2 regular. ABDOMEN: Soft. EXTREMITIES: Clubbing and cyanosis negative. LABORATORY DATA: Blood workup this morning as follows: WBC 11, hemoglobin 14.3, hematocrit 43.6, platelet count 220. Chemistry shows sodium 139, potassium 4.0, chloride 100, carbon dioxide 28, anion gap of 15, BUN 25, creatinine 1.0. IMPRESSION: Abnormal stress test, chronic obstructive pulmonary disease exacerbation, ex-smoker 40-ldoc-bztg smoking, hypertension, hyperlipidemia. The patient underwent cardiac catheterization that revealed distal to mid 30% stenosis, ostial LAD 20% to 30% stenosis calcified coronary, mid to distal circumflex is codominant, 80% to 90% multiple stenosis is noted. RCA codominant vessels at 30% to 40% stenosis in mid segment. LV gram hyperdynamic, ejection fraction 65%, EDP in the range of 15% to 18%. The patient successfully underwent percutaneous transluminal coronary angioplasty with two drug eluting stents from mid to distal circumflex with reduction of stenosis 90% to 0, tolerated the procedure well. PLAN: Continue aspirin 81 mg daily, Plavix 75 mg daily, atorvastatin increased to 20 mg daily, continue Flomax as baseline and continue aggressive treatment of COPD. We will check the lab at 12 p.m. and then check the lab tomorrow. Total 250 mL of contrast used as complex PTCA. We will follow with you. Thank you Dr. De Santiago for providing me the opportunity in taking care of the patient. We will decrease baby aspirin to 81 mg from tomorrow and also we will increase atorvastatin to 20 mg daily. Emani Reynolds MD
[2017-04-14] MEDS ORDERED: Bacitracin 500 Units/gm Oint Foilpak UD ONE (15:03)
--- NOTE | 2017-04-14 16:12 | CARD ---
APPROVED REPORT Procedure(s) performed: Left Heart Catheterization PTCA with Stenting of mid Circumflex with DEISY HISTORY The patient is a 76 year-old male with a history of : previous cardiac transplant, chronic lung disease, tobacco history() : The patient is a former smoker , hypertension , dyslipidemia , Admitted with Chst pain SOB and positive stress test. INDICATION The indication(s) include : positive stress test. CASE TECHNIQUE The patient was brought urgently to the Cardiac Catheterization Laboratory in a fasting state and was prepped and draped in a sterile manner. The left wrist was infiltrated with 2% Lidocaine subcutaneous anesthesia. A 6 Fr Glidesheath (Radial) sheath was inserted into the left radial artery without difficulty. Coronary angiography was performed using coronary diagnostic catheters. The left coronary system was accessed and visualized with a Diagnostic ,5 Fr JL 3.5 catheter. The right coronary system was accessed and visualized with a Diagnostic ,5 Fr JR 4 catheter. The left ventricle was accessed and visualized with a 5 Fr Pigtail 145 (Angled) catheter. Left ventricular/Aortic Valve gradient assessed on pullback. Left ventriculogram was performed in MEDINA projection. Closure device was deployed with a Fr TR Band (Regular) without any complications. The patient tolerated the procedure well and there were no complications associated with the procedure. Vessel Analysis The patient's coronary anatomy is co-dominant. The left main coronary artery is a medium size vessel with diffuse calcification noted throughout this vessel and without significant stenosis. There is a 30-40% stenosis in the distal segment. The left main bifurcates to the left anterior descending and circumflex. The left anterior descending artery is a medium size vessel with diffuse calcification noted throughout this vessel and without significant stenosis. There is a 20-30% stenosis in the ostial segment. The first diagonal branch is a small size vessel with diffuse calcification noted throughout this vessel and without significant stenosis. The circumflex artery is a large size vessel with diffuse calcification noted throughout this vessel and with significant stenosis. There is a 80-90% stenosis in the mid to distal segment. Multiple stenoses in mid to distal segment, proximal Cx is mildly ectatic The first obtuse marginal branch is a medium size vessel with diffuse calcification noted throughout this vessel and without significant stenosis. The second obtuse marginal branch is a small size vessel with diffuse calcification noted throughout this vessel and without significant stenosis. The left posterior descending artery is a medium size vessel with diffuse calcification noted throughout this vessel and without significant stenosis. The right coronary artery is a medium size vessel with diffuse calcification noted throughout this vessel and without significant stenosis. There is a 40% stenosis in the mid segment. The right posterolateral branch is a medium size vessel with diffuse calcification noted throughout this vessel and without significant stenosis. Left Ventricle The left ventricle is smaller in size with hyperdynamic contractility. There was no cardiomyopathy. The left ventricular ejection fraction is estimated to be 65-70%. The left ventricular end diastolic pressure is 15-18 mmHg. respiratory variation PCI Technique Lesion Anticoagulation was achieved with Heparin. Percutaneous coronary intervention was performed on the Distal circumflex artery segment. The lesion stenosis prior to intervention was 80-90% with ELIZA 2 flow. A 6 Fr XB 3 Guide Catheter was used to engage the ostium. BALLOON DILATION A Balloon catheter 2.0 x 20 mm Sprinter RX was inserted and inflated up to 10.00atm for 27seconds. STENT DEPLOYMENT A drug-eluting stent 2.5 x 30 mm Resolute DEISY was inserted and inflated up to 12.00atm for 12seconds. POST STENT DEPLOYMENT BALLOON DILATION A Balloon catheter 3.0/12 was inserted and inflated up to 12.00atm for 15seconds. Final angiography reveals 0 % stenosis with ELIZA 3 flow. PCI Technique Lesion 2 Percutaneous Coronary Intervention was performed on the mid circumflex artery segment. The lesion stenosis prior to intervention was 80% with ELIZA 2 flow. A 6 Fr XB 3 Guide Catheter was used to engage the ostium. BALLOON DILATION A Balloon catheter 2.0 x 20 mm Sprinter RX was inserted and inflated up to 12atm for 15seconds. STENT DEPLOYMENT A drug-eluting stent 3.0 x 12 mm Resolute DEISY was inserted and inflated up to 12atm for 15seconds. Final angiography reveals 0 % stenosis with ELIZA 3 flow. Conclusion Critical one vessel disease involving Mid to Distal co Domoinant Cx. Mild to modearte Diz in LAD/ RCA Hyperdynamiv LV, EF_65-70%, EDp-15-18 mm with Respiratory Variation. Successful PTCA of MId and distal Cx with DEISY. Recommendations Cardiac Rehabilitation ReferralDaily ASA with Plavix for at least one year Aggressive Medical TherapyCardiac Risk Reduction Program Weight Loss Reduction Program CC; DRS. De Santiago/ Desire/ Sebas.
[2017-04-14] MEDS: Levalbuterol 0.63 MG/3 ML Inhal Soln UD IH PRN (16:55)
--- NOTE | 2017-04-15 00:47 | CARD ---
APPROVED REPORT EKG Measurement Heart [id number] <Conclusion> Normal sinus rhythm Right atrial enlargement Left axis deviation Possible Lateral infarct, age undetermined Inferior-posterior infarct, age undetermined Abnormal ECG
--- NOTE | 2017-04-15 02:21 | PN ---
DATE: 04/14/2017 REFERRING PHYSICIAN: Dr. De Santiago. SUBJECTIVE: He is sitting up in a bed status post cardiac catheter stent placement, complaining about wheezing, short of breath. No nausea, no vomiting, no diarrhea. No leg pain, no leg swelling. PHYSICAL EXAMINATION: GENERAL: No acute distress. VITAL SIGNS: Temperature 98, heart rate 80, respiratory rate is 20, blood pressure 121/63, pulse ox 96% on nasal cannula. HEENT: Moist mucous membrane. Crowded airway. NECK: Supple. No JVD. CARDIOPULMONARY: S1 and S2. LUNGS: Bilateral wheezing. ABDOMEN: Soft, nontender, no organomegaly. EXTREMITIES: No edema. Left upper extremity has a puncture wound with some ecchymotic area. NEUROLOGIC: Awake, alert, follows simple commands. LABORATORY DATA: Shows hemoglobin 14.7, hematocrit 43.6, WBC 7.0, platelet is 220. Sodium 139, potassium 4.1, chloride 100, bicarbonate 28, BUN 25, creatinine 1.0, glucose 119, calcium is 9.1. MEDICATIONS: Brovana 15 mcg inhaled twice a day, Claritin 10 mg daily, Ecotrin 81 mg daily, Flomax 0.4 mg daily, insulin coverage, Levaquin 750 mg daily, Lipitor 20 mg daily, Pepcid 20 mg daily, Plavix 75 mg daily, Pulmicort inhaled twice a day, Singulair 10 mg at bedtime, Solu-Medrol 30 mg q. 12 hours, Brett-Dur 24 mg extended release daily, Xanax 0.5 mg at bedtime, Xopenex inhaler q. 6 hours. IMPRESSION AND PLAN: Chronic obstructive lung disease, steroids dependent, admitted with chest pain, found to have coronary artery disease. Right coronary artery is dominant, ended up with 2 stents in the circumflex. History of pulmonary fibrosis, lung nodule, hyperlipidemia. Continue IV and inhaled bronchodilator. Cardiology followup. Gastric prophylaxis, DVT prophylaxis. Thank you, and we will follow with you. Emani Phipps MD
--- NOTE | 2017-04-15 05:05 | PN ---
SUBJECTIVE: The patient is a 76-year-old male. The patient is seen and examined at the bedside, looking comfortable. No nausea, vomiting, or diarrhea. No hematuria or hematochezia. No swelling of the legs. No chest pain. No palpitations. Status post catheterization, got cardiac stents. Tolerated the procedure very well as per Dr. Reynolds. PHYSICAL EXAMINATION: VITAL SIGNS: Temperature 97.6, pulse 86, blood pressure 124/63 and respiratory rate 18. HEENT: Head; normocephalic and atraumatic. Eyes; PERRLA. Extraocular muscles are intact. Conjunctivae clear. Nose patent. Mucous membranes moist. NECK: Supple. No carotid bruits. No JVD or thyromegaly. CHEST: Bilaterally symmetrical. HEART: S1 and S2 positive. LUNGS: Clear to auscultation. ABDOMEN: Soft. Bowel sounds present. No organomegaly. EXTREMITIES: No edema. No cyanosis. NEUROLOGIC: The patient is awake and alert. Moving all 4 extremities. No focal deficit. MEDICATIONS: Brovana, Claritin, aspirin, tamsulosin, insulin, levofloxacin, Lipitor, Plavix, Pulmicort, Singulair and theophylline. LABORATORY DATA: White blood cell 7.4, hemoglobin 14.7, hematocrit 43.6 and platelet count 220. Sodium 139, potassium 4.0, BUN 27, creatinine 1.0 and glucose 119. ASSESSMENT AND PLAN: Mr. Morgan Flores is a 76-year-old male with coronary artery disease, status post cardiac stent today, history of chronic obstructive pulmonary disease, pulmonary fibrosis, asthma, hypercholesterolemia, chronic lung disease, lung metastasis, brought for catheterization today. He tolerated the procedure very well. Gastric prophylaxis and deep vein thrombosis prophylaxis. Continue present treatment. Gastric prophylaxis and deep vein thrombosis prophylaxis. We will follow. Sanna De Santiago MD
[2017-04-15 05:56] VITALS: O2SAT 97
[2017-04-15] MEDS: Insulin Reg-LOW-Coverage SC SCH (07:46)
[2017-04-15] MEDS: Budesonide 0.5 mg/2 ml Inhal Susp UD IH SCH (07:59)
[2017-04-15] MEDS: Arformoterol 15 mcg/2 ml Inh Sol IH SCH (07:59)
[2017-04-15] MEDS: MethylPREDNISolone 40 mg Vial IVP SCH (09:27)
[2017-04-15] MEDS: levoFLOXacin 750 mg in D5W 150 ML BAG IVPB SCH (09:29)
[2017-04-15] MEDS: Theophylline 100mg ER 24 hrs Cap PO SCH (09:29)
[2017-04-15 12:30] VITALS: BP 137/75; PULSE 100; RESP 19; TEMP 98
--- NOTE | 2017-04-15 17:34 | PN ---
DATE: 04/15/2017 REASON FOR CONSULTATION: Followup status post angioplasty of the circumflex, COPD and unstable angina. SUBJECTIVE: Denies any chest pain, shortness of breath or any palpitation. PHYSICAL EXAMINATION: As follows: GENERAL: Lying flat in the bed. VITAL SIGNS: Temperature afebrile, heart rate 74 and blood pressure 100/65. HEENT: PERRLA. Extraocular muscles intact. NECK: Supple. No carotid bruit or thyromegaly. CHEST: Clear to auscultation. HEART: S1 and S2 regular. ABDOMEN: Soft. EXTREMITIES: Clubbing and cyanosis negative. 1+ distal radial pulse noted. LABORATORY DATA: Blood workup as follows: WBC 7, hemoglobin 14.7, hematocrit 43.6 and platelet count 220. As of yet, the lab is pending. Yesterday 4:00 p.m., chemistry shows sodium 139, potassium 4.0, chloride 100, carbon dioxide 28, anion gap 15 and BUN 25. IMPRESSION: A 76-year-old male, active tobacco abuse, emphysema, chronic obstructive pulmonary disease, came in with chest pain, abnormal stress test, unstable angina, underwent cardiac catheterization, subsequently drug-eluting stent in the circumflex with the left radial approach. The patient is comfortable now, anxious to go home. RECOMMENDATION: Continue baby aspirin 81 mg daily, continue Plavix 75 mg daily, continue atorvastatin 20 mg daily in addition to the medication. The patient is not on beta-alfred and JAYDE inhibitor because of the low blood pressure. Wait for the blood work. Thank you Dr. De Santiago for providing me the opportunity in taking care of patientMorgan. Emani Reynolds MD
--- NOTE | 2017-04-15 23:38 | CARD ---
APPROVED REPORT EKG Measurement Heart [id number] <Conclusion> Sinus rhythm with premature atrial complexes Left axis deviation Possible Lateral infarct, age undetermined Inferior-posterior infarct, age undetermined Abnormal ECG
== END 2017-04-15 12:47 | disposition home or self-care (01) | DRG 247 ==
LOC: ED 13:09 → ERH 15:42 → 2RSO 22:17
PROVIDERS: ADMIT Internal Medicine; ATTEND Internal Medicine
PROC: 027034Z Dilation of Coronary Artery, One Artery with Drug-eluting Intraluminal Device, Percutaneous Approach (ICD-10-PCS; principal; 2017-04-14)
PROC: 4A023N7 Measurement of Cardiac Sampling and Pressure, Left Heart, Percutaneous Approach (ICD-10-PCS; 2017-04-14)
PROC: B2151ZZ Fluoroscopy of Left Heart using Low Osmolar Contrast (ICD-10-PCS; 2017-04-14)
PROC: B2111ZZ Fluoroscopy of Multiple Coronary Arteries using Low Osmolar Contrast (ICD-10-PCS; 2017-04-14)
PROC: 3E033PZ Introduction of Platelet Inhibitor into Peripheral Vein, Percutaneous Approach (ICD-10-PCS; 2017-04-14)
DX: I25.110 Atherosclerotic heart disease of native coronary artery with unstable angina pectoris (principal); J44.1 Chronic obstructive pulmonary disease with (acute) exacerbation; Z94.1 Heart transplant status; I27.2 Other secondary pulmonary hypertension; J84.10 Pulmonary fibrosis, unspecified; I10 Essential (primary) hypertension; E78.5 Hyperlipidemia, unspecified; K21.9 Gastro-esophageal reflux disease without esophagitis; E03.9 Hypothyroidism, unspecified; R91.1 Solitary pulmonary nodule; E78.00 Pure hypercholesterolemia, unspecified; Z72.0 Tobacco use; Z79.52 Long term (current) use of systemic steroids; Z99.81 Dependence on supplemental oxygen; Z88.2 Allergy status to sulfonamides; Z85.828 Personal history of other malignant neoplasm of skin; Z88.1 Allergy status to other antibiotic agents; Z87.442 Personal history of urinary calculi; Z88.0 Allergy status to penicillin

== ENCOUNTER 2017-06-05 21:11 | Inpatient (IN) | payer MEDICARE, MEDICAID ==
[2017-06-05 21:20] VITALS: BMI 20.9
[2017-06-05] MEDS ORDERED: Albuterol-Ipratrop 3 mg / 0.5 (3 ml) UD IH STA (21:33)
[2017-06-05 21:48] LABS: BASO # 0.02 K/mm3 (0.0-2.0); BASO % 0.1 % (0.0-3.0); EOS # 0.1 (0.0-0.7); EOS % 0.3 % (1.5-5.0); GRAN # 17.99 (1.4-6.5); GRAN % 87.7 % (50.0-68.0); HEMATOCRIT 47.3 % (42.0-52.0); LYMPH # 1.3 (1.2-3.4); LYMPH % 6.4 % (22.0-35.0); MEAN CELL VOLUME 92.6 fl (80.0-105.0); MEAN CORPUSCULAR HEMOGLOBIN 31.1 pg (25.0-35.0); MEAN CORPUSCULAR HGB CONC 33.6 g/dl (31.0-37.0); MEAN PLATELET VOLUME 9.2 fl (7.0-11.0); MONO # 1.1 (0.1-0.6); MONO % 5.5 % (1.0-6.0); RED CELL DISTRIBUTION WIDTH 14.5 % (11.5-14.5); WHITE BLOOD COUNT 20.5 10^3/ul (4.5-11.0)
[2017-06-05] MEDS: Albuterol-Ipratrop 3 mg / 0.5 (3 ml) UD IH SCH ×3 (21:49→22:24)
[2017-06-05 21:50] LABS: VENOUS BLOOD PH 7.33 (7.32-7.43)
--- NOTE | 2017-06-05 21:54 | ED PDOC ---
Arrival/HPI - General Chief Complaint: Shortness Of Breath Time Seen by Provider: 06/05/17 21:27 Historian: Patient - History of Present Illness Narrative History of Present Illness (Text): 06/05/17 21:30 Morgan Flores is a 76 year old male who presents to the emergency department complaining of shortness of breath and wheezing for a few hours. Patient denies any fever, chills, chest pain, nausea, vomiting, diarrhea, urinary symptoms, positive back pain, no neck pain, headache, dizziness, or any other complaints. 06/06/17 06:19 Time/Duration: 1-3 hours Symptom Onset: Gradual Activities at Onset: Light Context: Home Past Medical History - Provider Review Nursing Documentation Reviewed: Yes - Infectious Disease Hx of Infectious Diseases: None - Tetanus Immunization Tetanus Immunization: Unknown - Cardiac Hx Cardiac Disorders: Yes Hx Hypertension: Yes - Pulmonary Hx Chronic Obstructive Pulmonary Disease (COPD): Yes Hx Emphysema: Yes Other/Comment: former smoker - Neurological Hx Neurological Disorder: No - HEENT Hx HEENT Disorder: Yes Hx Cataracts: Yes - Renal Hx Kidney Stones: Yes - Endocrine/Metabolic Hx Endocrine Disorders: No - Hematological/Oncological Hx Cancer: Yes (skin) - Integumentary Hx Dermatological Disorder: Yes (skin cancer) - Musculoskeletal/Rheumatological Hx Falls: No - Gastrointestinal Other/Comment: Hernia - Genitourinary/Gynecological Hx Genitourinary Disorders: Yes - Psychiatric Hx Psychophysiologic Disorder: No Hx Substance Use: No - Surgical History Other/Comment: skin cancer removal - behind right ear - Anesthesia Hx Anesthesia: Yes Hx Anesthesia Reactions: No Hx Malignant Hyperthermia: No - Suicidal Assessment Feels Threatened In Home Enviroment: No Family/Social History - Physician Review Nursing Documentation Reviewed: Yes Family/Social History: No Known Family HX Smoking Status: Former Smoker Hx Alcohol Use: Yes Hx Substance Use: No Hx Substance Use Treatment: No Allergies/Home Meds Allergies/Adverse Reactions: Allergies ampicillin Allergy (Verified 06/05/17 21:20) RASH Penicillins Allergy (Verified 06/05/17 21:20) RASH Sulfa (Sulfonamide Antibiotics) Allergy (Verified 06/05/17 21:20) RASH Home Medications: Home Meds Medication Instructions Recorded Confirmed Aspirin [Adult Low Dose Aspirin EC] 81 mg PO DAILY 06/05/17 06/05/17 Clopidogrel [Plavix] 75 mg PO DAILY 06/05/17 06/05/17 Famotidine [Pepcid] 20 mg PO DAILY 06/05/17 06/05/17 Fluticasone Propionate [Flonase 50 mcg NS PRN PRN 06/05/17 06/05/17 Allergy Relief] Fluticasone/Salmeterol 250/50 1 puff IH DAILY 06/05/17 06/05/17 [Advair Diskus] Levocetirizine Dihydrochloride 5 mg PO DAILY 06/05/17 06/05/17 [Xyzal] Loratadine [Claritin] 10 mg PO DAILY 06/05/17 06/05/17 Simvastatin [Zocor] 20 mg PO DAILY 06/05/17 06/05/17 Tamsulosin [Flomax] 0.4 mg PO DAILY 06/05/17 06/05/17 Theophylline [Brett-24 Tab] 300 mg PO BID 06/05/17 06/05/17 predniSONE [Prednisone] 10 mg PO DAILY 06/05/17 06/05/17 Review of Systems - Physician Review All systems were reviewed & negative as marked: Yes - Review of Systems Constitutional: absent: Fevers, Night Sweats Eyes: absent: Vision Changes ENT: absent: Hearing Changes Respiratory: SOB, Wheezing Cardiovascular: absent: Chest Pain Gastrointestinal: absent: Abdominal Pain Genitourinary Male: absent: Dysuria, Frequency Musculoskeletal: absent: Arthralgias Skin: absent: Rash, Pruritis Neurological: absent: Headache, Dizziness Endocrine: absent: Diaphoresis Hemo/Lymphatic: absent: Adenopathy Physical Exam Vital Signs Reviewed: Yes Vital Signs Temp Pulse Resp BP Pulse Ox 06/06/17 00:07 106 H 20 106/56 L 93 L 06/05/17 23:11 115 H 20 129/62 94 L 06/05/17 21:32 99.7 F H 127 H 24 131/61 99 06/05/17 21:30 28 H 98 Temperature: Afebrile Blood Pressure: Normal Pulse: Tachycardic Respiratory Rate: Tachypneic Appearance: Positive for: Well-Appearing, Non-Toxic, Uncomfortable Pain Distress: None Mental Status: Positive for: Alert and Oriented X 3 - Systems Exam Head: Present: Atraumatic, Normocephalic Pupils: Present: PERRL Extroacular Muscles: Present: EOMI Conjunctiva: Present: Normal Mouth: Present: Moist Mucous Membranes Neck: Present: Normal Range of Motion Respiratory/Chest: Present: Wheezes, Rhonchi, Tachypneic Cardiovascular: Present: Regular Rate and Rhythm, Normal S1, S2. No: Murmurs Abdomen: Present: Normal Bowel Sounds. No: Tenderness, Distention, Peritoneal Signs Back: Present: Normal Inspection Upper Extremity: Present: Normal Inspection. No: Cyanosis, Edema Lower Extremity: Present: Normal Inspection. No: Edema Neurological: Present: GCS=15, CN II-XII Intact, Speech Normal Skin: Present: Warm, Dry, Normal Color. No: Rashes Psychiatric: Present: Alert, Oriented x 3, Normal Insight, Normal Concentration Medical Decision Making ED Course and Treatment: 06/05/17 21:53 Impression: 76 year old male complaining of shortness of breath and wheezing for a few hours. Differential Diagnosis included but are not limited to: COPD Plan: -- EKG -- ABG -- VBG -- Chest X-ray -- Blood Culture -- Labs -- Duoneb and Solu-medrol -- Reassess and disposition Prior Visits: Notes and results from previous visits were reviewed. Patient last seen in the ED on 04/11/17 for worsening shortness of breath and left sided chest pain over 5 days. Patient was admitted to hospitalist care for further evaluation. Progress Notes: EKG: Ordered, reviewed, and independently interpreted the EKG. Rate : 131 BPM Rhythm : Sinus Tachycardia Interpretation : Non-specific ST-T waves changes. Comparison : No previous EKG for comparison. case d/w dr alberto accepts case for tele for copd pneumonia 06/06/17 06:20 - Lab Interpretations Lab Results: 06/05/17 21:30 06/05/17 21:30 Lab Results 06/05/17 21:55: pCO2 37, pO2 81.0, HCO3 24.6, ABG pH 7.43, ABG Total CO2 25.7, ABG O2 Saturation 98.7 H, ABG Base Excess 0.5, ABG Potassium 3.3 L, Sodium 140.0 , Chloride 108.0 H, Glucose 114 H, Lactate 0.8, FiO2 32.0, Arterial Blood Potassium 3.3 L 06/05/17 21:30: Sodium 140, Chloride 100, Potassium 4.0, Carbon Dioxide 29, Anion Gap 15, BUN 14, Creatinine 0.9, Est GFR ( Amer) > 60, Est GFR (Non- Af Amer) > 60, Random Glucose 127 H, Calcium 9.4, Total Bilirubin 1.1, AST 27, ALT 30, Alkaline Phosphatase 51, Lactate Dehydrogenase 551, Total Creatine Kinase 148, Troponin I 0.04 D, NT-Pro-B Natriuret Pep 320, Total Protein 6.8, Albumin 4.1, Globulin 2.7, Albumin/Globulin Ratio 1.5 06/05/17 21:30: pO2 36, VBG pH 7.33, VBG pCO2 60.0, VBG HCO3 31.6 H, VBG Total CO2 33.4 H, VBG O2 Sat (Calc) 74.7 H, VBG Base Excess 4.0 H, VBG Potassium 4.2, Sodium 140.0, Chloride 102.0, Glucose 135 H, Lactate 1.2, FiO2 21.0, Venous Blood Potassium 4.2 06/05/17 21:30: PT 13.8 H, INR 1.28 H, APTT 26.1 06/05/17 21:30: WBC 20.5 H D, RBC 5.11, Hgb 15.9, Hct 47.3, MCV 92.6 D, MCH 31.1, MCHC 33.6, RDW 14.5, Plt Count 202, MPV 9.2, Gran % 87.7 H, Lymph % (Auto ) 6.4 L, [place] % (Auto) 5.5, Eos % (Auto) 0.3 L, Baso % (Auto) 0.1, Gran # 17.99 H, Lymph # 1.3, [place] # 1.1 H, Eos # 0.1, Baso # 0.02 I have reviewed the lab results: Yes - RAD Interpretation Radiology Orders: 06/05/17 21:33 CHEST PORTABLE [RAD] Stat - Medication Orders Current Medication Orders: Acetaminophen (Tylenol 325mg Tab) 650 mg PO Q4H PRN PRN Reason: Fever >100.5 F Morphine Sulfate (Morphine) 2 mg IVP Q4H PRN PRN Reason: Pain, moderate (4-7) Last Admin: 06/06/17 06:11 Dose: 2 mg MAR Pain Assessment Document 06/06/17 06:11 AP (Rec: 06/06/17 06:11 AP [id number]) Pain Reassessment Is this a pain reassessment? No Presence of Pain Presence of Pain Yes Pain Scale Used Pain Scale Used Numeric Location Left, Right or Bilateral Left Upper or Lower Lower Pain Location Body Site Back Description Intensity of Pain at present 6 Pain Behavior Facial Grimacing Alleviating Factors/Management Medication Techniques IVP Administration Document 06/06/17 06:11 AP (Rec: 06/06/17 06:11 AP [id number]) Charges for Administration # of IVP Administrations 1 Discontinued Medications Albuterol/Ipratropium (Duoneb 3 Mg/0.5 Mg (3 Ml) Ud) 3 ml IH STAT STA Stop: 06/05/17 21:34 Last Admin: 06/05/17 21:42 Dose: 3 ml Albuterol/Ipratropium (Duoneb 3 Mg/0.5 Mg (3 Ml) Ud) 3 ml IH Q15M RUBIN Stop: 06/05/17 22:16 Last Admin: 06/05/17 22:24 Dose: 3 ml Albuterol/Ipratropium (Duoneb 3 Mg/0.5 Mg (3 Ml) Ud) 3 ml IH Q4H PRN PRN Reason: Shortness of Breath Last Admin: 06/06/17 05:50 Dose: 3 ml Aztreonam (Azactam 1 Gm) 100 mls @ 100 mls/hr IVPB STAT STA PRN Reason: Protocol Stop: 06/05/17 22:57 Last Admin: 06/05/17 23:52 Dose: 100 mls/hr eMAR Start Stop Document 06/05/17 23:52 YP (Rec: 06/05/17 23:52 YP [id number]) Intravenous Solution Start Date 06/05/17 Start Time 23:52 End Date 06/06/17 End time 00:52 Total Infusion Time 60 Levofloxacin/Dextrose (Levaquin 750mg) 750 mg IVPB STAT STA Stop: 06/05/17 21:59 Last Admin: 06/05/17 22:04 Dose: 750 mg eMAR Start Stop Document 06/05/17 22:04 YP (Rec: 06/05/17 22:04 YP [id number]) Intravenous Solution Start Date 06/05/17 Start Time 22:04 End Date 06/05/17 End time 23:04 Total Infusion Time 60 Methylprednisolone (Solu-Medrol) 125 mg IVP STAT STA Stop: 06/05/17 21:34 Last Admin: 06/05/17 21:42 Dose: 125 mg IVP Administration Document 06/05/17 21:42 YP (Rec: 06/05/17 21:42 YP [id number]) Charges for Administration # of IVP Administrations 1 Disposition/Present on Arrival - Present on Arrival Any Indicators Present on Arrival: No History of DVT/PE: No History of Uncontrolled Diabetes: No Urinary Catheter: No History of Decub. Ulcer: No History Surgical Site Infection Following: None - Disposition Have Diagnosis and Disposition been Completed?: Yes Diagnosis: Pneumonia, COPD exacerbation Disposition: HOSPITALIZED Disposition Time: 23:10 Condition: FAIR
[2017-06-05 21:57] LABS: ALB/GLOB RATIO 1.5 (1.1-1.8); ALKALINE PHOSPHATASE 51 U/L (38-126); ALT/SGPT 30 U/L (7-56); AST/SGOT 27 U/L (17-59); BILIRUBIN,TOTAL 1.1 mg/dL (0.2-1.3); BLOOD UREA NITROGEN 14 mg/dL (7-21); CALCIUM 9.4 mg/dL (8.4-10.5); CARBON DIOXIDE 29 mmol/L (21-33); CHLORIDE 100 mmol/L (98-107); GFR AFRICAN-AMERICAN > 60; GLUCOSE,RANDOM 127 mg/dL (70-110); INR 1.28 (0.93-1.08); PARTIAL THROMBOPLASTIN TIME 26.1 Seconds (23.7-30.8); SODIUM 140 mmol/L (132-148); TOTAL PROTEIN 6.8 g/dL (5.8-8.3)
[2017-06-05] MEDS ORDERED: Aztreonam 1 Gm in NS 100mL 100 ML IVPB STA (21:58)
[2017-06-05] MEDS ORDERED: levoFLOXacin 750 mg in D5W 150 ML BAG IVPB STA (21:58)
[2017-06-05 22:07] LABS: ARTERIAL BLOOD GAS HCO3 24.6 mmol/L (21-28); ARTERIAL BLOOD GAS PH 7.43 (7.35-7.45)
[2017-06-05 22:08] LABS: TROPONIN I 0.04 ng/mL
[2017-06-05] MEDS: Morphine 2 mg/ml ISec IVP PRN (23:10)
[2017-06-06] MEDS: Albuterol-Ipratrop 3 mg / 0.5 (3 ml) UD IH PRN ×4 (01:05→11:24)
[2017-06-06] MEDS: Morphine 2 mg/ml ISec IVP PRN (06:11)
[2017-06-06] MEDS ORDERED: Albuterol-Ipratrop 3 mg / 0.5 (3 ml) UD IH STA (06:29)
--- NOTE | 2017-06-06 08:58 | RAD ---
HISTORY: sob COMPARISON: Portable chest 04/11/2017. FINDINGS: LUNGS: Limited patchy airspace disease is question at the inferior left lung zone superimposed over extensive COPD. A right-sided infiltrate appreciable. PLEURA: Trace of pleural effusion is not completely excluded with none on the right. No pneumothorax bilaterally. CARDIOVASCULAR: Normal. OSSEOUS STRUCTURES: No significant abnormalities. VISUALIZED UPPER ABDOMEN: Normal. OTHER FINDINGS: None. IMPRESSION: Limited, patchy airspace disease is questioned inferior left lung zone in the interval. Bilateral COPD changes again appreciated greater the left and right sides. Trace of pleural effusion is questioned.
[2017-06-06] MEDS: levoFLOXacin 500 mg in D5W 500 MG/100 ML BAG IVPB SCH (08:59)
[2017-06-06] MEDS: Non Formulary Medication (Levocetirizine Dihydrochloride [Xyzal] 5 MG) PO SCH (09:01)
[2017-06-06] MEDS ORDERED: MethylPREDNISolone 40 mg Vial IVP SCH (10:00)
[2017-06-06] MEDS ORDERED: Non Formulary Medication (Levocetirizine Dihydrochloride [Xyzal] 5 MG) PO SCH (10:00)
[2017-06-06] MEDS ORDERED: Non Formulary Medication (Simvastatin [Zocor] 20 MG) PO SCH (10:00)
[2017-06-06] MEDS ORDERED: Fluticasone-Salmeterol 250-50mcg Diskus IH SCH (10:00)
[2017-06-06] MEDS ORDERED: Magnesium Hydroxide Susp 30 ml UD PO ONE (11:28)
[2017-06-06 11:38] LABS: ARTERIAL BLOOD GAS HCO3 26.4 mmol/L (21-28); ARTERIAL BLOOD GAS O2 CAPACITY 21.3 mL/dl (16-24); ARTERIAL BLOOD GAS O2 CONTENT 21.2 ML/dl (15-23); ARTERIAL BLOOD GAS PH 7.45 (7.35-7.45); ARTERIAL BLOOD HGB O2 SAT 95.6 % (95.0-98.0); CARBOXYHEMOGLOBIN 2.6 % (0.5-1.5); HHB 0.4 % (0-5); METHEMOGLOBIN 1.5 % (0.0-3.0)
--- NOTE | 2017-06-06 12:34 | CARD ---
APPROVED REPORT EKG Measurement Heart [id number] <Conclusion> Sinus tachycardia with APC's Right atrial enlargement Left axis deviation, LAHB Inferior-posterior infarct, age undetermined NSSTW changes
--- NOTE | 2017-06-06 12:40 | RAD ---
HISTORY: acute sob COMPARISON: 06/05/2017 FINDINGS: LUNGS: Severe emphysematous changes are seen in the left lung. There is a patchy infiltrate inferiorly in the left lung. This is unchanged. The right lung is unremarkable PLEURA: No significant pleural effusion identified, no pneumothorax apparent. CARDIOVASCULAR: Normal. OSSEOUS STRUCTURES: No significant abnormalities. VISUALIZED UPPER ABDOMEN: Normal. OTHER FINDINGS: None. IMPRESSION: Severe emphysematous changes are seen in the left lung. There is a patchy infiltrate inferiorly in the left lung. This is unchanged. The right lung is unremarkable
--- NOTE | 2017-06-06 13:25 | IP.NPCORE ---
Pneumonia Progress Notes - Oxygenation Assessment (REQUIRED) Documented 02: Yes Oxygen Delivery Method: Nasal Cannula Date: 06/06/17 Documented P02: Yes Date:: 06/06/17 - Blood Cultures (REQUIRED) Culture drawn: Yes - Initial Antibiotic Initial Antibiotic given within Four Hours:: Yes - Appropriate Antibiotic Appropriate Antibiotic within 24 hours of Admission:: Yes No change in antibiotics: Yes - Pneumonia Vaccine Pneumonia Vaccine: Yes (will be offered at [facility]) - Smoking Cessation Smoking Cessation counseling provided:: No Ex-Smoker (has not smoked in the last 12 months): No Current Smoker - smoking cessation education provided: No
[2017-06-06] MEDS: Albuterol-Ipratrop 3 mg / 0.5 (3 ml) UD IH SCH ×2 (14:13→19:40)
[2017-06-06] MEDS: Arformoterol 15 mcg/2 ml Inh Sol IH SCH (19:40)
[2017-06-06] MEDS: Budesonide 0.5 mg/2 ml Inhal Susp UD IH SCH (19:40)
[2017-06-06] MEDS ORDERED: Acetylcysteine 20% Inhal Sol (30ml) INH SCH (20:00)
[2017-06-06] MEDS: MethylPREDNISolone 40 mg Vial IVP SCH (22:59)
--- NOTE | 2017-06-07 00:45 | CON ---
PULMONARY CONSULTATION DATE: 06/06/2017 REFERRING PHYSICIAN: Sanna De Santiago MD REASON FOR CONSULTATION: Exacerbation of chronic obstructive lung disease. HISTORY OF PRESENT ILLNESS: This is a 76 years old gentleman well known to me, who is a steroids and oxygen dependant, well advanced COPD, severely decreased FEV1, comes in with cough and shortness of breath. He received IV and inhaled bronchodilator with some benefit and admitted for further continued treatment. Presently, he is sitting up in a bed with cough, shortness of breath, and wheezing. No nausea. No vomiting. No diarrhea. No leg pain or leg swelling. PAST MEDICAL HISTORY: Chronic obstructive lung disease, hypertension, history of renal stone, history of skin cancer, and abdominal hernia. SOCIAL HISTORY: Stopped smoking many years ago. Denies any alcohol use. FAMILY HISTORY: No significant cardiopulmonary disease reported. ALLERGIES: HE HAS ALLERGIES TO AMPICILLIN, PENICILLIN, AND SULFA. MEDICATIONS: He is on Brovana 15 mcg inhaler twice a day, Claritin 10 mg daily, DuoNeb q. 2 hours p.r.n. __2.03___ also q. 6 hours round the clock, Ecotrin 81 mg daily, Flomax 0.4 mg daily, Levaquin 500 mg daily, levocetirizine 5 mg daily, Lipitor 10 mg daily, morphine 2 mg q. 4 hours. p.r.n., Pepcid 20 mg daily, Plavix 75 mg daily, Pulmicort inhaled twice a day, Singulair 10 mg daily, Solu-Medrol 40 mg q. 12 hours., theophylline 300 mg twice a day, Tylenol p.r.n., and Xanax 0.25 mg twice a day. REVIEW OF SYSTEMS: No headache. No rhinitis. No postnasal drip. He has a cough, shortness of breath, and wheezing. No chest pain. No nausea. No vomiting. No dysuria. No leg pain or leg swelling. PHYSICAL EXAMINATION: GENERAL: Lying in the bed, mild distress secondary to cough and shortness of breath. VITAL SIGNS: Temperature is 98, heart rate is 105, respiratory rate is 20, blood pressure is 106/62, and pulse oximetry is 95% on 3 L nasal cannula. HEENT: Moist mucous membrane, small oral cavity. Crowded airway. NECK: Supple. No JVD. LUNGS: Has a very poor airflow with prolonged expiratory phase and wheezing. HEART: S1 and S2. ABDOMEN: Soft and nontender. No organomegaly. EXTREMITIES: There is no edema. NEUROLOGIC: Awake and alert. Follows simple commands. MEDICATIONS: He is on Plavix 75 mg daily, Pulmicort inhale twice a day, Singulair 10 mg daily, Solu-Medrol 40 mg q. 12 hours, 10 mg twice a day, Tylenol p.r.n., and Xanax 0.25 mg twice a day. LABORATORY DATA: Shows hemoglobin of 15.9, hematocrit of 47.3, WBC of 20.5, and platelets of 202. INR of 1.28. PTT is 26. Blood gases show pH of 7.45, pCO2 of 38, and O2 of 144 at rest on nasal cannula. Sodium of 140, potassium of 4.0, chloride of 100, bicarbonate of 29, BUN of 14, creatinine of 0.9, calcium of 9.4, and total bilirubin is 1.1, AST is 27, ALT is 30, alkaline phosphatase is 51, and albumin is 4.1. DIAGNOSTIC DATA: Had a chest x-ray done, which showed severe emphysema changes seen in the lungs. There is a patchy infiltrate inferiorly in the left lung. IMPRESSION AND PLAN: Chronic obstructive lung disease, steroids dependant, coronary artery disease, coronary artery stent, pulmonary fibrosis, hyperlipidemia, and lung nodules. Continue intravenous and inhaled bronchodilator, gastric prophylaxis, and deep venous thrombosis prophylaxis. We will add doxycycline 100 mg twice a day. Once improved, need to consider for lung transplant. We referred to [facility], Lung Transplant Team. Thank you and we will follow with you. Emani Phipps MD
--- NOTE | 2017-06-07 01:48 | HP ---
CHIEF COMPLAINT: Shortness of breath. HISTORY OF PRESENT ILLNESS: Mr. Morgan Flores is a 76-year-old my private patient with history of severe emphysematous changes in the lungs, came to the emergency room department complaining of shortness of breath and wheezing for few hours. The patient denies any fever, chills, or chest pain. No nausea, vomiting, diarrhea, or urinary symptoms. The patient is complaining about he has back pain with coughing. No neck pain. No headache. No dizziness, but looks like anxious. I saw the patient in the telemetry, was anxious, and we gave him one Xanax, after that he started feeling better. PAST MEDICAL HISTORY: Coronary artery disease, status post cardiac stent, history of hypertension, chronic obstructive pulmonary disease, emphysema, history of smoking, history of catheter removal, kidney stones, and history of skin cancer behind the right ear. HABITS: Former smoker. Alcohol use yes, but not abuse as per patient. Substance use is no. ALLERGIES: THE PATIENT IS ALLERGIC TO AMPICILLIN, PENICILLIN, AND SULFA. HOME MEDICATIONS: Aspirin, Plavix, Pepcid, fluticasone, Solu-Medrol, Xyzal, Claritin, Zocor, Flomax, theophylline, and prednisone. REVIEW OF SYSTEMS: The patient is seen and examined on the bedside, looking comfortable, but still coughing, shortness of breath, and chest pain with coughing. No vision changes and no hearing changes and having wheezing. No abdominal pain. No dysuria or frequency. No arthralgia. No pleuritis. No headache or dizziness. No diaphoresis. No adenopathy, but looks a little bit anxious. PHYSICAL EXAMINATION: VITAL SIGNS: Temperature 97.1, pulse 105, blood pressure 106/62, and respiratory rate 18. HEENT: Head; normocephalic and atraumatic. Eyes; PERRLA. Extraocular muscles are intact. Conjunctivae clear. Nose patent. Mucous membranes moist. NECK: Supple. No carotid bruits. No JVD or thyromegaly. CHEST: Bilaterally symmetrical. LUNGS: Positive wheezing bilaterally . had audible wheezing. HEART: S1 and S2 positive. ABDOMEN: Soft. Bowel sounds present. No organomegaly. EXTREMITIES: No edema. No cyanosis. NEUROLOGIC: The patient is awake and alert. Moving all 4 extremities. No focal deficit. LABORATORY DATA: White blood cell is 20.5, hemoglobin 15.9, hematocrit 47.3, and platelets 202. Sodium 140, potassium 4.0, BUN 14, creatinine 0.9, and glucose 127. ASSESSMENT AND PLAN: Mr. Morgan Flores is a 76-year-old male with leukocytosis, hyperglycemia, came with exacerbation of his emphysema, chronic obstructive pulmonary disease, and asthma. Chest x-ray done showed severe emphysematous changes are seen in the left lung. There is a patchy infiltrates inferiorly in the left lung, this is unchanged. The right lung is unremarkable. The patient has a history of coronary artery disease, cardiac stenting, history of hypertension, history of cataract surgery, nephrolithiasis, and skin cancer behind the right ear. We admitted the patient, started on levofloxacin to rule out secondary infection and bronchitis. Consult called with Dr. Phipps. 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 Gave acetylcysteine, Brovana, Claritin, DuoNeb, aspirin, and tamsulosin for benign prostatic hypertrophy, getting Lasix, Lipitor for hypercholesterolemia, Pepcid for gastrointestinal prophylaxis, started on Solu-Medrol, and theophylline. Because the patient was anxious, I gave him a dose of Xanax. We will followup. Sanna De Santiago MD MTDD
[2017-06-07] MEDS: Albuterol-Ipratrop 3 mg / 0.5 (3 ml) UD IH SCH ×5 (02:39→19:16)
[2017-06-07] MEDS: MethylPREDNISolone 40 mg Vial IVP SCH ×4 (05:14→22:34)
[2017-06-07] MEDS: Acetylcysteine 20% Inhal Soln (4ml) INH SCH ×3 (07:32→19:16)
[2017-06-07] MEDS: Arformoterol 15 mcg/2 ml Inh Sol IH SCH ×2 (07:33→19:16)
[2017-06-07] MEDS: Budesonide 0.5 mg/2 ml Inhal Susp UD IH SCH ×2 (07:33→19:17)
[2017-06-07] MEDS: Enoxaparin 40 mg Syringe SC SCH ×2 (09:44→10:00)
[2017-06-07] MEDS: levoFLOXacin 500 mg in D5W 500 MG/100 ML BAG IVPB SCH (09:44)
[2017-06-07] MEDS: Non Formulary Medication (Levocetirizine Dihydrochloride [Xyzal] 5 MG) PO SCH (10:17)
[2017-06-07] MEDS: LEVOCETIRIZINE DIHYDROCHLORIDE 5 MG PO SCH (10:19)
[2017-06-07] MEDS: Albuterol-Ipratrop 3 mg / 0.5 (3 ml) UD IH PRN ×2 (11:22→19:59)
[2017-06-07] MEDS ORDERED: Magnesium Hydroxide Susp 30 ml UD PO ONE (12:52)
[2017-06-07] MEDS: Morphine 2 mg/ml ISec IVP PRN (18:22)
--- NOTE | 2017-06-07 21:12 | PN ---
DATE: SUBJECTIVE: The patient is a 76-year-old male. The patient is seen and examined at the bedside. His homemaker was on the bedside. She did translation for me. The patient's nurse and Dr. Phipps was on the bedside also. The patient is very anxious and complaining about colon pain. He did not have bowel movements from a couple of days and talking about burning sensation in his stomach. No nausea, vomiting, just still coughing and wheezing. Even breathing is a little bit better. No headache. No dizziness. PHYSICAL EXAMINATION VITAL SIGNS: Temperature 97.7, pulse 115, blood pressure 130/68, respiratory rate 21. HEENT: Head is normocephalic and atraumatic. Eyes; PERRLA. Extraocular muscles intact. Conjunctivae clear. Nose patent. Mucous membranes moist. NECK: Supple. No carotid bruits. No JVD or thyromegaly. CHEST: Bilaterally symmetrical. HEART: S1 and S2 positive. LUNGS: Positive wheezing bilaterally. ABDOMEN: Had bowel sounds positive. No organomegaly. SKIN: No edema. No cyanosis, but has tremor. NEUROLOGIC: The patient is awake, alert. Moving all 4 extremities. No focal deficit. Cranial nerves II-XII are grossly intact. MEDICATIONS: Acetylcysteine, Claritin, DuoNeb, Ecotrin, Flomax, Levaquin, Xyzal, Lipitor, Lovenox, morphine, Pepcid, Plavix, Pulmicort, Singulair, Solu-Medrol, theophylline, Tylenol. LABORATORY DATA: We do not have recent labs today, but I reviewed old labs. ASSESSMENT AND PLAN: Mr. Morgan Flores is a 76-year-old male with anemia, hyperglycemia, constipation, gastroesophageal reflux disease, dyspepsia, has chronic obstructive lung disease, hypertension, history of renal stones, history of skin cancer behind the right ear, history of abdominal hernia, coronary artery disease, status post cardiac stenting. His asthma is steroid dependent, pulmonary fibrosis, hyperlipidemia, lung nodules. We will continue inhaled bronchodilators, gastric prophylaxis, deep vein thrombosis prophylaxis. Dr. Phipps added doxycycline. Dr. Phipps wants to refer the patient to [facility] for lung transplant team. The patient today has constipation. We will give some stool softener or a suppository. The patient is already getting the proton pump inhibitor. Discussion was done with Dr. Phipps. We will change his medications. Repeat labs. We will follow up. Sanna De Santiago MD
--- NOTE | 2017-06-07 23:11 | CP.PCM.PN ---
Subjective - Date & Time of Evaluation Date of Evaluation: 06/07/17 Time of Evaluation: 23:11 - Subjective Subjective: Patient was seen at bedside. He has no complaints. Nurse called because his heart rate has been up. HR 130/min, 126/69 mm Hg, Temp: 98.6*F, RR 18/ min, pulse ox 95 5 on 3L/min. Denies chest pain, sob, nausea, palpitation, sweating. This 76 year old male was admitted with sob, wheezing, exacerbation of COPD. Has PMH of emphysema/COPD, CAD, coronary stent placement, HTN, kidney stone , auricular skin cancer. Objective - Vital Signs/Intake and Output Vital Signs (last 24 hours): Temp Pulse Resp BP Pulse Ox 98.6 F 121 H 22 116/79 98 06/07/17 20:02 06/07/17 22:00 06/07/17 20:02 06/07/17 20:02 06/07/17 20:02 - Medications Medications: Current Medications Acetaminophen (Tylenol 325mg Tab) 650 mg PO Q4H PRN PRN Reason: Fever >100.5 F Acetylcysteine (Acetylcysteine 20%) 3 ml INH BID [facility] Last Admin: 06/07/17 19:16 Dose: 3 ml Albuterol/Ipratropium (Duoneb 3 Mg/0.5 Mg (3 Ml) Ud) 3 ml IH Q2H PRN PRN Reason: Shortness of Breath Last Admin: 06/07/17 19:59 Dose: 3 ml Alprazolam (Xanax) 0.25 mg PO BID PRN PRN Reason: Anxiety Stop: 06/13/17 11:45 Last Admin: 06/06/17 11:54 Dose: 0.25 mg Arformoterol Tartrate (Brovana) 15 mcg IH [id number] [facility] Last Admin: 06/07/17 19:16 Dose: 15 mcg Aspirin (Ecotrin) 81 mg PO DAILY [facility] Last Admin: 06/07/17 09:45 Dose: 81 mg Atorvastatin Calcium (Lipitor) 10 mg PO HS [facility] Last Admin: 06/07/17 22:59 Dose: Not Given Budesonide (Pulmicort Respules) 0.5 mg IH [id number] [facility] Last Admin: 06/07/17 19:17 Dose: 0.5 mg Clopidogrel Bisulfate (Plavix) 75 mg PO DAILY [facility] Last Admin: 06/07/17 09:45 Dose: 75 mg Enoxaparin Sodium (Lovenox) 40 mg SC DAILY [facility] PRN Reason: Protocol Last Admin: 06/07/17 10:00 Dose: Not Given Levofloxacin/Dextrose (Levaquin 500mg) 500 mg in 100 mls @ 100 mls/hr IVPB DAILY [facility] Last Admin: 06/07/17 09:44 Dose: 100 mls/hr Lactulose (Enulose) 10 gm PO DAILY [facility] Loratadine (Claritin) 10 mg PO DAILY [facility] Last Admin: 06/07/17 09:45 Dose: 10 mg Magnesium Hydroxide (Milk Of Magnesia) 30 ml PO TID [facility] Methylprednisolone (Solu-Medrol) 40 mg IVP Q12 [facility] Last Admin: 06/07/17 22:34 Dose: 40 mg Montelukast Sodium (Singulair) 10 mg PO HS [facility] Last Admin: 06/07/17 22:46 Dose: Not Given Morphine Sulfate (Morphine) 2 mg IVP Q4H PRN PRN Reason: Pain, moderate (4-7) Last Admin: 06/07/17 18:22 Dose: 2 mg Levocetirizine Dihydrochloride [ Xyzal] 5 Mg (Home) 5 mg PO DAILY [facility] Last Admin: 06/07/17 10:19 Dose: Not Given Pantoprazole Sodium (Protonix Ec Tab) 40 mg PO 0600,1600 [facility] Tamsulosin HCl (Flomax) 0.4 mg PO DAILY [facility] Last Admin: 06/07/17 09:45 Dose: 0.4 mg Theophylline (Brett-24 Tab) 300 mg PO DAILY [facility] - Labs Labs: PT 13.8 Seconds (9.9-11.8) H 06/05/17 21:30 INR 1.28 (0.93-1.08) H 06/05/17 21:30 APTT 26.1 Seconds (23.7-30.8) 06/05/17 21:30 Micro Results 06/05/17 22:00 Blood-Venous Blood Culture - Preliminary NO GROWTH AFTER 48 HOURS 06/05/17 21:30 Blood-Venous Blood Culture - Preliminary NO GROWTH AFTER 48 HOURS Most Recent Lab Values WBC 20.5 10^3/ul (4.5-11.0) H D 06/05/17 21:30 RBC 5.11 10^6/uL (3.5-6.1) 06/05/17 21:30 Hgb 15.9 g/dL (14.0-18.0) 06/05/17 21:30 Hct 47.3 % (42.0-52.0) 06/05/17 21:30 MCV 92.6 fl (80.0-105.0) D 06/05/17 21:30 MCH 31.1 pg (25.0-35.0) 06/05/17 21:30 MCHC 33.6 g/dl (31.0-37.0) 06/05/17 21:30 RDW 14.5 % (11.5-14.5) 06/05/17 21:30 Plt Count 202 10^3/uL (120.0-450.0) 06/05/17 21:30 MPV 9.2 fl (7.0-11.0) 06/05/17 21:30 Gran % 87.7 % (50.0-68.0) H 06/05/17 21:30 Lymph % (Auto) 6.4 % (22.0-35.0) L 06/05/17 21:30 [place] % (Auto) 5.5 % (1.0-6.0) 06/05/17 21:30 Eos % (Auto) 0.3 % (1.5-5.0) L 06/05/17 21:30 Baso % (Auto) 0.1 % (0.0-3.0) 06/05/17 21:30 Gran # 17.99 (1.4-6.5) H 06/05/17 21:30 Lymph # 1.3 (1.2-3.4) 06/05/17 21:30 [place] # 1.1 (0.1-0.6) H 06/05/17 21:30 Eos # 0.1 (0.0-0.7) 06/05/17 21:30 Baso # 0.02 K/mm3 (0.0-2.0) 06/05/17 21:30 PT 13.8 Seconds (9.9-11.8) H 06/05/17 21:30 INR 1.28 (0.93-1.08) H 06/05/17 21:30 APTT 26.1 Seconds (23.7-30.8) 06/05/17 21:30 pCO2 38 mm/Hg (35-45) 06/06/17 11:20 pO2 144.0 mm/Hg (80-100) H 06/06/17 11:20 HCO3 26.4 mmol/L (21-28) 06/06/17 11:20 ABG pH 7.45 (7.35-7.45) 06/06/17 11:20 ABG Total CO2 27.6 mmol.L (22-28) 06/06/17 11:20 ABG O2 Saturation 99.6 % (95-98) H 06/06/17 11:20 ABG O2 Content 21.2 ML/dl (15-23) 06/06/17 11:20 ABG Base Excess 2.4 mmol/L (-2.0-3.0) 06/06/17 11:20 ABG Hemoglobin 15.6 g/dL (11.7-17.4) 06/06/17 11:20 ABG Carboxyhemoglobin 2.6 % (0.5-1.5) H 06/06/17 11:20 POC ABG HHb (Measured) 0.4 % (0-5) 06/06/17 11:20 ABG Methemoglobin 1.5 % (0.0-3.0) 06/06/17 11:20 ABG O2 Capacity 21.3 mL/dl (16-24) 06/06/17 11:20 ABG Potassium 3.3 mmol/L (3.6-5.2) L 06/05/17 21:55 VBG pH 7.33 (7.32-7.43) 06/05/17 21:30 VBG pCO2 60.0 (40-60) 06/05/17 21:30 VBG HCO3 31.6 mmol/l (21-28) H 06/05/17 21:30 VBG Total CO2 33.4 mmol.L (22-28) H 06/05/17 21:30 VBG O2 Sat (Calc) 74.7 % (40-65) H 06/05/17 21:30 VBG Base Excess 4.0 mmol/L (0.0-2.0) H 06/05/17 21:30 VBG Potassium 4.2 mmol/L (3.6-5.2) 06/05/17 21:30 Hgb O2 Saturation 95.6 % (95.0-98.0) 06/06/17 11:20 Sodium 140.0 mmol/L (132-148) 06/05/17 21:55 Chloride 108.0 mmol/L (98-107) H 06/05/17 21:55 Glucose 114 mg/dl (75-110) H 06/05/17 21:55 Lactate 0.8 mmol/L (0.7-2.1) 06/05/17 21:55 FiO2 45.0 % 06/06/17 11:20 Sodium 140 mmol/L (132-148) 06/05/17 21:30 Potassium 4.0 mmol/L (3.6-5.0) 06/05/17 21:30 Chloride 100 mmol/L (98-107) 06/05/17 21:30 Carbon Dioxide 29 mmol/L (21-33) 06/05/17 21:30 Anion Gap 15 (10-20) 06/05/17 21:30 BUN 14 mg/dL (7-21) 06/05/17 21:30 Creatinine 0.9 mg/dL (0.5-1.4) 06/05/17 21:30 Est GFR ( Amer) > 60 06/05/17 21:30 Est GFR (Non-Af Amer) > 60 06/05/17 21:30 Random Glucose 127 mg/dL (70-110) H 06/05/17 21:30 Calcium 9.4 mg/dL (8.4-10.5) 06/05/17 21:30 Total Bilirubin 1.1 mg/dL (0.2-1.3) 06/05/17 21:30 AST 27 U/L (17-59) 06/05/17 21:30 ALT 30 U/L (7-56) 06/05/17 21:30 Alkaline Phosphatase 51 U/L (38-126) 06/05/17 21:30 Lactate Dehydrogenase 551 U/L (333-699) 06/05/17 21:30 Total Creatine Kinase 148 U/L (35-230) 06/05/17 21:30 Troponin I 0.04 ng/mL D 06/05/17 21:30 NT-Pro-B Natriuret Pep 320 pg/mL (0-450) 06/05/17 21:30 Total Protein 6.8 g/dL (5.8-8.3) 06/05/17 21:30 Albumin 4.1 g/dL (3.0-4.8) 06/05/17 21:30 Globulin 2.7 gm/dL 06/05/17 21:30 Albumin/Globulin Ratio 1.5 (1.1-1.8) 06/05/17 21:30 Arterial Blood Potassium 3.3 mmol/L (3.6-5.2) L 06/05/17 21:55 Venous Blood Potassium 4.2 mmol/L (3.6-5.2) 06/05/17 21:30 - Constitutional Appears: Well, No Acute Distress - Head Exam Head Exam: ATRAUMATIC, NORMAL INSPECTION, NORMOCEPHALIC - Eye Exam Eye Exam: Normal appearance - ENT Exam ENT Exam: Normal External Ear Exam - Neck Exam Neck Exam: Normal Inspection - Respiratory Exam Respiratory Exam: Wheezes (Minimal.), NORMAL BREATHING PATTERN - Cardiovascular Exam Cardiovascular Exam: +S1 (Normal.), +S2 (Normlal). absent: JVD - GI/Abdominal Exam GI & Abdominal Exam: absent: Distended - Rectal Exam Rectal Exam: Deferred - Exam Additional comments: Deferred. - Extremities Exam Extremities Exam: Normal Inspection - Back Exam Back Exam: NORMAL INSPECTION - Neurological Exam Neurological Exam: Alert, Awake, Oriented x3 - Psychiatric Exam Psychiatric exam: Normal Affect, Normal Mood - Skin Skin Exam: Normal Color Assessment and Plan - Assessment and Plan (Free Text) Assessment: Sinus tachycardia.-2* to proventil neb treatment. -R/o electrolyte imbalance. -R/O cardiac injury. -R/O supratherapeutic theophylline level -anxiety. CAD. HTN. Hx coronary stent placement. COPD. Leukocytosis. Plan: Lopressor 5 mg IV x 1. BMP, magnesium, troponin, theophylline level. EKG--------->Sinus tachycardia,? lateral infarct, Inferior infarct, age undetermined.
[2017-06-07] MEDS ORDERED: Metoprolol 1 mg/ml Inj IVP ONE (23:13)
[2017-06-07 23:55] LABS: BLOOD UREA NITROGEN 24 mg/dL (7-21); CALCIUM 9.3 mg/dL (8.4-10.5); CARBON DIOXIDE 27 mmol/L (21-33); CHLORIDE 102 mmol/L (98-107); GFR AFRICAN-AMERICAN > 60; GLUCOSE,RANDOM 204 mg/dL (70-110); MAGNESIUM 2.6 mg/dL (1.7-2.2); PHOSPHOROUS 2.9 mg/dL (2.5-4.5); POTASSIUM 3.7 mmol/L (3.6-5.0); SODIUM 141 mmol/L (132-148)
[2017-06-08 00:06] LABS: TROPONIN I 0.03 ng/mL
--- NOTE | 2017-06-08 04:54 | PN ---
PULMONARY PROGRESS NOTE DATE: 06/07/2017 REFERRING PHYSICIAN: Sanna De Santiago MD SUBJECTIVE: The patient is lying in the bed, head at 45 degrees. He did not eat his lunch and dinner, upset because constipated, cannot go to bathroom while in the hospital, tachycardic, tachypneic, agitative, headache, cough and wheezing, complaining of GERD. No leg pain or leg swelling. OBJECTIVE: VITAL SIGNS: Temperature is 98, heart rate is 118, respiratory rate is 20, blood pressure 116/79 and pulse oximetry 98% on nasal cannula. HEENT: Moist mucous membrane. No ulcer or thrush noted. NECK: Supple. No JVD. LUNGS: Has poor air flow with expiratory wheezing. HEART: S1 and S2. ABDOMEN: Soft and nontender. No organomegaly. EXTREMITIES: There is not much edema. NEUROLOGICAL: Awake and alert. Follows simple commands. MEDICATIONS: He is on Mucomyst 20% inhaled twice a day, Brovana inhaled twice a day, Claritin 10 mg daily, DuoNeb q.2 hours p.r.n. and q.6 hours round the clock, Ecotrin 81 mg daily, Flomax 0.4 mg daily, Levaquin 500 mg daily, Xyzal 5 mg daily, Lipitor 10 mg daily, Lovenox 40 mg daily, milk of magnesia 30 mL p.o. 3 times a day, morphine 2 mg IV q. 4 hours. p.r.n., Pepcid 20 mg twice a day, Plavix 75 mg daily, Pulmicort inhaled twice a day, Singulair 10 mg daily, Solu-Medrol 40 mg q.6 hours., Brett-Dur 24 hours 300 mg daily, Tylenol p.r.n. basis and Xanax 0.25 mg twice a day p.r.n. LABORATORY DATA: Reviewed. No new lab is available since yesterday. Microbiology blood culture has been negative. IMPRESSION AND PLAN: Chronic obstructive lung disease, steroids dependent; coronary artery disease, history of coronary artery stent; pulmonary fibrosis; hyperlipidemia; history of lung nodule; anxiety disorder; constipation. We will decrease steroids, change DuoNeb to p.r.n. basis. Continue morphine p.r.n. basis, may give lactulose on p.r.n. basis. Gastric prophylaxis changed to Protonix and Carafate. Thank you, and we will follow with you. Case discussed with Dr. De Santiago and nursing staff in detail. Emani Phipps MD
[2017-06-08] MEDS: Pantoprazole 40 mg EC Tab PO SCH ×2 (06:06→18:27)
[2017-06-08] MEDS: Arformoterol 15 mcg/2 ml Inh Sol IH SCH ×2 (08:06→19:31)
[2017-06-08] MEDS: Budesonide 0.5 mg/2 ml Inhal Susp UD IH SCH ×2 (08:07→19:31)
[2017-06-08] MEDS: Acetylcysteine 20% Inhal Soln (4ml) INH SCH ×3 (08:14→19:28)
[2017-06-08 09:26] LABS: GRAN # 11.36 (1.4-6.5); GRAN % 90.7 % (50.0-68.0); HEMATOCRIT 42.8 % (42.0-52.0); LYMPH # 0.5 (1.2-3.4); LYMPH % 4.3 % (22.0-35.0); MEAN CELL VOLUME 90.9 fl (80.0-105.0); MEAN CORPUSCULAR HEMOGLOBIN 30.1 pg (25.0-35.0); MEAN CORPUSCULAR HGB CONC 33.2 g/dl (31.0-37.0); MEAN PLATELET VOLUME 9.2 fl (7.0-11.0); MONO # 0.6 (0.1-0.6); PLATELET COUNT 267 10^3/uL (120.0-450.0); RED CELL DISTRIBUTION WIDTH 14.2 % (11.5-14.5); WHITE BLOOD COUNT 12.5 10^3/ul (4.5-11.0)
[2017-06-08 09:33] LABS: ALB/GLOB RATIO 1.4 (1.1-1.8); ALKALINE PHOSPHATASE 48 U/L (38-126); ALT/SGPT 24 U/L (7-56); AST/SGOT 32 U/L (17-59); BILIRUBIN,TOTAL 0.4 mg/dL (0.2-1.3); BLOOD UREA NITROGEN 27 mg/dL (7-21); CALCIUM 9.3 mg/dL (8.4-10.5); CARBON DIOXIDE 28 mmol/L (21-33); CHLORIDE 105 mmol/L (98-107); GFR AFRICAN-AMERICAN > 60; GLUCOSE,RANDOM 135 mg/dL (70-110); POTASSIUM 4.4 mmol/L (3.6-5.0); SODIUM 145 mmol/L (132-148); TOTAL PROTEIN 6.4 g/dL (5.8-8.3)
[2017-06-08] MEDS: Albuterol-Ipratrop 3 mg / 0.5 (3 ml) UD IH PRN (09:46)
[2017-06-08] MEDS: levoFLOXacin 500 mg in D5W 500 MG/100 ML BAG IVPB SCH (10:42)
[2017-06-08] MEDS: Magnesium Hydroxide Susp 30 ml UD PO SCH ×4 (10:42→18:24)
[2017-06-08] MEDS: Enoxaparin 40 mg Syringe SC SCH (10:42)
[2017-06-08] MEDS: LEVOCETIRIZINE DIHYDROCHLORIDE 5 MG PO SCH (10:43)
[2017-06-08] MEDS: MethylPREDNISolone 40 mg Vial IVP SCH ×2 (10:44→21:22)
[2017-06-08 11:40] LABS: ANISOCYTOSIS SLIGHT; NEUTROPHIL 90 % (50.0-70.0); PLATELET ESTIMATE NORMAL (NORMAL)
[2017-06-08] MEDS ORDERED: Lactulose 10 gm/15 ml (Rectal Use) PR ONE (13:15)
--- NOTE | 2017-06-08 17:21 | PN ---
DATE: 06/08/2017 REFERRING PHYSICIAN: Dr. De Santiago. SUBJECTIVELY: He is lying in the bed, feels much better today. This morning events noted, has tachycardia with high blood pressure, feel much better at present time. Decreased cough, decreased short of breath, has a bowel movement, decreased abdominal pain. No leg pain or leg swelling. OBJECTIVE: GENERAL: In no acute distress. VITAL SIGNS: Temperature 98, heart rate 72, respiratory rate is 20, blood pressure 115/85, pulse ox 94% on 3 L nasal canula. HEENT: Moist mucous membrane. No oral thrush noted. NECK: Supple. No JVD. LUNGS: Has a better airflow, still has an expiratory wheezing per long expiratory phase. HEART: S1 and S2. ABDOMEN: Soft, nontender, no organomegaly. EXTREMITIES: There is no edema. NEUROLOGIC: Awake, alert, and follows simple commands. MEDICATIONS: He is on Mucomyst 3 mL inhaled twice a day, Brovana inhaled twice a day, Claritin 10 mg daily, DuoNeb q. 12 hour p.r.n., Ecotrin 81 mg daily, Enulose 10 mg p.o. daily, Flomax 0.4 mg daily, Levaquin 500 mg daily, and also getting Xyzal I guess as at home, we will discontinue, Lipitor 10 mg daily, Lovenox 40 mg daily, morphine 2 mg q. 4 hour p.r.n., Plavix 75 mg daily, Protonix 40 mg twice a day, Pulmicort inhaled twice a day, Singulair 10 mg daily, Solu-Medrol 40 mg q. 12 hour, theophylline 300 mg daily, Tylenol p.r.n., Xanax 0.25 mg twice a day p.r.n. LABORATORY DATA: Shows hemoglobin 14.2, hematocrit 42.8, WBC 12.5 and platelet count is 267. Sodium 145, potassium 4.4, chloride 105, bicarbonate is 28, BUN 27, creatinine 1.0, glucose 135, calcium is 9.3, AST 32, ALT 24, alk phos is 48 and albumin is 3.7. Microbiology: Blood cultures were negative. IMPRESSION AND PLAN: Chronic obstructive lung disease, steroid dependent; coronary artery disease, history of coronary artery stent; pulmonary fibrosis; hyperlipidemia; history of lung nodule; anxiety disorder; constipation. This morning when noted has a tachycardia, presently in sinus rhythm. We will continue steroid-inhaled bronchodilator. Gastric prophylaxis, DVT prophylaxis, stool softener. I spoke to nursing staff. We will follow with you. Emani Phipps MD
[2017-06-09] MEDS: Pantoprazole 40 mg EC Tab PO SCH (05:34)
[2017-06-09] MEDS: Budesonide 0.5 mg/2 ml Inhal Susp UD IH SCH (07:43)
[2017-06-09] MEDS: Arformoterol 15 mcg/2 ml Inh Sol IH SCH (07:43)
[2017-06-09] MEDS: Acetylcysteine 20% Inhal Soln (4ml) INH SCH ×3 (07:43→16:19)
--- NOTE | 2017-06-09 08:37 | PN ---
The patient is a 76 years old male. SUBJECTIVE: The patient is seen and examined at the bedside, looking comfortable; still coughing; having shortness of breath, but he feels better. According to him he have did bowel movement x2. After bowel movement, his stomach pain has gone, but feeling anxious once in a while, want to go home. Last night, he has episode of tachycardia, seen by housing physician, Dr. Torrez. PHYSICAL EXAMINATION: VITAL SIGNS: Temperature 98.6, pulse 72, blood pressure 115/85, respiratory rate 16. HEENT: Head: Normocephalic and atraumatic. Eyes: PERRLA. Extraocular muscles intact. Conjunctivae clear. Nose patent. Mucous membranes moist. NECK: Supple. No carotid bruits, JVD or thyromegaly. CHEST: Bilaterally symmetrical. HEART: S1 and S2 positive. LUNGS: Positive wheezing bilaterally. ABDOMEN: Soft. Bowel sounds present. No organomegaly. EXTREMITIES: No edema. No cyanosis, but has tremor. NEUROLOGIC: The patient is awake and alert. Moving all 4 extremities. No focal deficits. Cranial nerves II through XII are grossly intact. MEDICATIONS: Acetylcysteine, Brovana, loratadine, albuterol, DuoNeb, aspirin, lactulose, tamsulosin, Levaquin, atorvastatin, magnesium, morphine, Plavix, pantoprazole, acetaminophen. LABORATORY DATA: White blood cell is 12.5, on admission it is 20.5; hemoglobin 14.2; hematocrit 42.8; platelets 262. Sodium 145, potassium 4.4, BUN 27, creatinine 1.0, random glucose 135. ASSESSMENT AND PLAN: The patient is a 76 years old male with leukocytosis, increased BUN, hyperglycemia, hypomagnesemia, constipation with abdominal pain. After suppositories and stool softener, now constipation is relieved; abdominal pain got better. Has chronic obstructive pulmonary disease, steroid dependency, coronary artery disease, status post cardiac stenting, pulmonary fibrosis, hypercholesterolemia, history of lung nodules, anxiety, getting Xanax, got different doses of morphine, now he do not want, we discontinued that. The patient is getting tapering dose of steroids, gastric prophylaxis, DVT prophylaxis, is on Carafate and Protonix. His heartburn is better. We will follow up. The patient will need GI prophylaxis, getting Lovenox. First in the morning, he refused Lovenox, but upon education he took the Lovenox, getting physical therapy also. Sanna De Santiago MD
--- NOTE | 2017-06-09 10:17 | CARD ---
APPROVED REPORT EKG Measurement Heart [id number] <Conclusion> Sinus tachycardia Right atrial enlargement Possible Lateral infarct, age undetermined Left axis deviation, LAHB Inferior-posterior infarct, age undetermined Abnormal ECG
[2017-06-09 11:29] VITALS: O2SAT 95
[2017-06-09] MEDS: LEVOCETIRIZINE DIHYDROCHLORIDE 5 MG PO SCH (11:36)
[2017-06-09] MEDS: Magnesium Hydroxide Susp 30 ml UD PO SCH ×2 (11:37→14:31)
[2017-06-09] MEDS: levoFLOXacin 500 mg in D5W 500 MG/100 ML BAG IVPB SCH (11:47)
[2017-06-09] MEDS: MethylPREDNISolone 40 mg Vial IVP SCH (11:53)
[2017-06-09] MEDS: Enoxaparin 40 mg Syringe SC SCH (11:55)
[2017-06-09 12:23] VITALS: BP 114/72; RESP 19; TEMP 98.3
[2017-06-09] MEDS: Albuterol-Ipratrop 3 mg / 0.5 (3 ml) UD IH PRN ×2 (13:26→16:19)
[2017-06-09 16:38] VITALS: PULSE 107
--- NOTE | 2017-06-10 08:02 | DS ---
CHIEF COMPLAINT: Shortness of breath and coughing. HISTORY OF PRESENT ILLNESS: Mr. Morgan Flores is a 76-year-old male, my private patient with a history of emphysema, asthma, COPD, came to the emergency room with severe emphysematous changes with coughing, shortness of breath. No fever, no chills, no chest pain, was complaining of abdominal pain, because of constipation. We admitted the patient with Solu-Medrol. Dr. Phipps saw the patient, got DuoNeb when the patient was having tachycardia then due to constipation, the patient was having abdominal pain, stool softener given, the patient had good bowel movement, after that abdominal pain got better, but he was having gastric stomach, heart burning with PPI got better. Today, he was transferred to the TCU for continuity of care and for Physical Therapy. PAST MEDICAL HISTORY: Coronary artery disease, status post cardiac stenting; hypertension; chronic obstructive pulmonary disease; emphysema; history of smoking; history of catheter removal; kidney stones; skin cancer behind the right ear. HABITS: Former smoker. No smoking. No drug. No ethanol. ALLERGIES: THE PATIENT IS ALLERGIC WITH PENICILLIN AND SULFA. HOME MEDICATIONS: Reviewed by me. REVIEW OF SYSTEMS: The patient was examined on the bedside on the telemetry, looking comfortable. No nausea or vomiting. Abdominal pain is better, had couple of bowel movements, but no diarrhea. Heartburn is better. Coughing, but less. Shortness of breath less. No fever. No chills. PHYSICAL EXAMINATION: VITAL SIGNS: Temperature 98.3, pulse 107, blood pressure 114/72, respiratory rate 19. HEENT: Head is normocephalic, atraumatic. Eyes; PERRLA. Extraocular muscles intact. Conjunctivae clear. Nose patent. Mucous membranes moist. NECK: Supple. No carotid bruits, JVD or thyromegaly. CHEST: Bilaterally symmetrical. HEART: S1 and S2 positive. LUNGS: Clear to auscultation. ABDOMEN: Soft. Bowel sounds positive. No organomegaly. EXTREMITIES: No edema. No cyanosis. NEUROLOGICAL: The patient is awake and alert. Moving all four extremities. No focal deficits. MEDICATIONS: Acetylcysteine, Brovana, Claritin, Ecotrin, lactulose, tamsulosin, Levaquin, DuoNeb, Lipitor, Lovenox, milk of magnesia, Plavix, Protonix, Pulmicort, Solu-Medrol tapering dosage. LABORATORY DATA: White blood cell is 12.5, hemoglobin 14.2, hematocrit 42.8, platelets 267. Sodium 145, potassium 4.4, BUN noted , creatinine 1.0, glucose 135, magnesium 2.2. ASSESSMENT AND PLAN: Mr. Morgan Flores is 76-year-old male with leukocytosis, increased BUN, hyperglycemia, hypomagnesemia, came with exacerbation of chronic obstructive pulmonary disease, asthma, emphysema, abdominal pain got better with bowel movement, gastroesophageal reflux disease, dyspepsia, tachycardia, steroid dependency, getting tapering dose of steroid, coronary artery disease, history of coronary artery stent, pulmonary fibrosis, hypercholesterolemia, lung densities, anxiety disorder, episode of tachycardia. Right now, the patient was in sinus rhythm. Continue decreasing down steroid, gastric prophylaxis, deep venous thrombosis prophylaxis. Length of time discussion done with the patient. Transferred to TCU. We will follow up. Sanna De Santiago MD MTDD
== END 2017-06-09 16:44 | DRG 192 ==
LOC: ED 21:11 → ERH 23:11 → 2RNO 06-06 00:41
PROVIDERS: ADMIT Internal Medicine; ATTEND Internal Medicine
PROC: 3E0F7GC Introduction of Other Therapeutic Substance into Respiratory Tract, Via Natural or Artificial Opening (ICD-10-PCS; principal; 2017-06-06)
DX: J44.1 Chronic obstructive pulmonary disease with (acute) exacerbation (principal); J84.10 Pulmonary fibrosis, unspecified; Z99.81 Dependence on supplemental oxygen; I10 Essential (primary) hypertension; I25.10 Atherosclerotic heart disease of native coronary artery without angina pectoris; N40.0 Benign prostatic hyperplasia without lower urinary tract symptoms; E78.00 Pure hypercholesterolemia, unspecified; K21.9 Gastro-esophageal reflux disease without esophagitis; K59.00 Constipation, unspecified; F41.9 Anxiety disorder, unspecified; R00.0 Tachycardia, unspecified; T48.6X5A Adverse effect of antiasthmatics, initial encounter; D64.9 Anemia, unspecified; E83.42 Hypomagnesemia; Z79.52 Long term (current) use of systemic steroids; Z79.02 Long term (current) use of antithrombotics/antiplatelets; Z79.82 Long term (current) use of aspirin; Z85.828 Personal history of other malignant neoplasm of skin; Z95.5 Presence of coronary angioplasty implant and graft; Z87.442 Personal history of urinary calculi; Z87.891 Personal history of nicotine dependence

== ENCOUNTER 2017-06-09 16:44 | Inpatient (IN) | payer OTHER, MEDICAID ==
[2017-06-09 17:25] VITALS: BMI 21.4
[2017-06-09] MEDS: Acetylcysteine 20% Inhal Soln (4ml) IH SCH (19:53)
[2017-06-09] MEDS: Arformoterol 15 mcg/2 ml Inh Sol IH SCH (19:54)
[2017-06-09] MEDS: Budesonide 0.5 mg/2 ml Inhal Susp UD IH SCH (19:54)
[2017-06-09] MEDS ORDERED: Arformoterol 15 mcg/2 ml Inh Sol IH SCH (20:00)
[2017-06-09] MEDS ORDERED: Pneumococcal 23-Valent Vaccine IM ONE (20:14)
[2017-06-09] MEDS: MethylPREDNISolone 40 mg Vial IVP SCH (21:29)
--- NOTE | 2017-06-10 04:13 | CON ---
DATE: 06/09/2017 PULMONARY CONSULTATION REFERRING PHYSICIAN: Dr. De Santiago. REASON FOR CONSULTATION: Chronic obstructive lung disease, cough, and shortness of breath. HISTORY OF PRESENT ILLNESS: This is a 76-year-old gentleman well known to me from office on previous admission. Recently admitted to acute side of the hospital with exacerbation of chronic obstructive lung disease, cough, shortness of breath, hypoxemia, treated with high dose of steroids, antibiotics and inhaled bronchodilator. Had a bad constipation requiring laxative. Had bowel movement yesterday. Severe ADL dysfunction. Unable to stand up and walk. The patient was ambulating at home, transferred to [facility] for continued care and rehab to complete his antibiotics and IV steroids. PAST MEDICAL HISTORY: Chronic obstructive lung disease, hypertension, history of renal stone, history of skin cancer, coronary artery disease, history of coronary stent. SOCIAL HISTORY: Stopped smoking. . FAMILY HISTORY: No significant cardiopulmonary disease. ALLERGIES: REPORTED ALLERGY TO AMPICILLIN, PENICILLIN, AND SULFA. REVIEW OF SYSTEMS: No headache. No rhinitis. Has cough, shortness of breath, and wheezing. No chest pain. No nausea. Today, there is no abdominal pain. Had a bowel movement yesterday. No dysuria. No leg pain. No leg swelling. PHYSICAL EXAMINATION: GENERAL: Lying in the bed. Mild cough and short of breath. VITAL SIGNS: Temperature is 98, heart rate is 99, respiratory rate is 18, blood pressure 103/64, pulse ox is 96% on 3 liters nasal cannula. HEENT: Moist mucous membrane. No crowded airway. No ulcer. No thrush. NECK: Supple. LUNGS: Poor airflow. Prolonged expiratory phase with some wheezing. HEART: S1 and S2. ABDOMEN: Soft, nontender, and nondistended. EXTREMITIES: There is no edema. NEUROLOGIC: Awake and alert. Follows simple command. LABORATORY DATA: Shows hemoglobin 14.2, hematocrit 42.8, WBC 12.5, platelet count is 267. Sodium 145, potassium 4.5, chloride 105, bicarbonate 28, BUN 27, creatinine 1.0, glucose is 135. AST 32, ALT 24, alkaline phosphatase is 48. IMPRESSION AND PLAN: Chronic obstructive lung disease, interstitial infiltrate, pulmonary fibrosis, lung nodules, coronary artery disease, history of coronary stent, hyperlipidemia, anxiety disorder, constipation. Pulmonary point of view, continue IV inhaled bronchodilator. Continue antibiotics. Gastric prophylaxis. DVT prophylaxis. Physical therapy. Fall precaution. Thank you and we will follow with you. Emani Phipps MD
[2017-06-10] MEDS: levoFLOXacin 500 mg in D5W 500 MG/100 ML BAG IVPB SCH (05:34)
[2017-06-10] MEDS: Pantoprazole 40 mg EC Tab PO SCH ×2 (05:35→17:57)
[2017-06-10] MEDS: Arformoterol 15 mcg/2 ml Inh Sol IH SCH ×2 (07:22→19:52)
[2017-06-10] MEDS: Acetylcysteine 20% Inhal Soln (4ml) IH SCH ×2 (07:22→19:52)
[2017-06-10] MEDS: Budesonide 0.5 mg/2 ml Inhal Susp UD IH SCH ×2 (07:22→19:52)
[2017-06-10] MEDS ORDERED: Acetylcysteine 20% Inhal Sol (30ml) IH SCH (10:00)
[2017-06-10] MEDS ORDERED: Home Med 1 UNIT PO SCH (10:00)
[2017-06-10] MEDS: Enoxaparin 40 mg Syringe SC SCH (10:52)
[2017-06-10] MEDS: MethylPREDNISolone 40 mg Vial IVP SCH ×2 (10:56→17:58)
[2017-06-10] MEDS: Magnesium Hydroxide Susp 30 ml UD PO SCH ×3 (10:56→17:57)
[2017-06-10] MEDS: Albuterol-Ipratrop 3 mg / 0.5 (3 ml) UD IH PRN (19:52)
--- NOTE | 2017-06-11 04:55 | HP ---
CHIEF COMPLAINT: Shortness of breath, deconditioning, tremors. HISTORY OF PRESENT ILLNESS: Mr. Morgan Flores is a 76-year-old my private patient well known to me from my office and multiple hospitalization, was admitted actually on the telemetry for exacerbation of COPD, asthma, got treatment, was complaining of abdominal pain due to chronic constipation. After giving stool softener, he did bowel movement. Abdominal pain is gone and he was complaining about gastroesophageal reflux disease, dyspepsia, burning sensation. After PPI, his burning sensation got better. Getting tapering dose of steroid, bronchodilators, antibiotics, tapering dose of steroids, has severe ADL dysfunction, unable to stand and walk, feeling very fatigued and tired and tremulous, having tremors, transferred the patient to TCU for continuity of care and for giving the physical therapy and improving ADL. PAST MEDICAL HISTORY: Chronic obstructive lung disease, hypertension, history of renal disease, history of skin cancer, coronary artery disease and history of coronary stent. SOCIAL HISTORY: History of heavy smoking, quit. No smoking, no drug, no ethanol now. FAMILY HISTORY: Nonsignificant cardiopulmonary disease. ALLERGIES: THE PATIENT IS ALLERGIC WITH AMPICILLIN, PENICILLIN AND SULFA. REVIEW OF SYSTEMS: The patient seen and examined on the bedside, looking comfortable. No nausea, vomiting or diarrhea. Coughing is better. Chest pain is better with coughing. No more constipation. No more burning sensation in the stomach, still having tremors, feeling fatigue and tired, cannot do his ADLs. No fever. No chills. PHYSICAL EXAMINATION VITAL SIGNS: Temperature 98.2, pulse 97, blood pressure 114/72 and respiratory rate 20. HEENT: Head is normocephalic and atraumatic. Eyes; PERRLA. Extraocular muscles intact. Conjunctivae clear. Nose patent. Mucous membranes moist. NECK: Supple. No carotid bruits, JVD or thyromegaly. CHEST: Bilaterally symmetrical. HEART: S1 and S2 positive. LUNGS: Clear to auscultation. ABDOMEN: Soft. Bowel sounds positive. No organomegaly. EXTREMITIES: No edema. No cyanosis. NEUROLOGICAL: The patient is awake and alert. Moving all four extremities. No focal deficits. MEDICATIONS: Acetylcysteine, Brovana, Claritin, DuoNeb, Ecotrin, Enulose, Flomax, levofloxacin, Lipitor, Lovenox, milk of magnesia, Plavix, Protonix, Pulmicort, Singulair, Solu-Medrol tapering dosage, theophylline, Tylenol and Xanax. LABORATORY DATA: We do not have recent lab today, but I have reviewed old labs. ASSESSMENT AND PLAN: Mr. Morgan Flores is a 76-year-old male came in with exacerbation of COPD, asthma, pulmonary fibrosis, history of coronary artery disease, status post cardiac stenting, hypertension, history of nephrolithiasis, skin cancer, gastroesophageal reflux disease, dyspepsia, has interstitial infiltrates, pulmonary fibrosis, lung nodules and anxiety. Constipation is better. Gastroesophageal reflux disease and dyspepsia is better. Continue bronchodilators, tapering dose steroids. Gastric and deep venous thrombosis prophylaxis and physical therapy. We will follow. Sanna De Santiago MD
[2017-06-11] MEDS: levoFLOXacin 500 mg in D5W 500 MG/100 ML BAG IVPB SCH (05:17)
[2017-06-11] MEDS: Pantoprazole 40 mg EC Tab PO SCH ×2 (05:18→16:40)
[2017-06-11] MEDS: MethylPREDNISolone 40 mg Vial IVP SCH ×2 (05:18→17:41)
[2017-06-11] MEDS: Acetylcysteine 20% Inhal Soln (4ml) IH SCH ×2 (07:36→19:41)
[2017-06-11] MEDS: Arformoterol 15 mcg/2 ml Inh Sol IH SCH ×2 (07:36→19:42)
[2017-06-11] MEDS: Budesonide 0.5 mg/2 ml Inhal Susp UD IH SCH ×2 (07:36→19:42)
[2017-06-11] MEDS: Enoxaparin 40 mg Syringe SC SCH (09:52)
[2017-06-11] MEDS: Magnesium Hydroxide Susp 30 ml UD PO SCH ×3 (09:52→17:41)
[2017-06-11] MEDS: Albuterol-Ipratrop 3 mg / 0.5 (3 ml) UD IH PRN ×2 (11:26→19:42)
--- NOTE | 2017-06-11 21:01 | PN ---
DATE: 06/11/2017 PULMONARY PROGRESS NOTE REFERRING PHYSICIAN: Sanna De Santiago MD SUBJECTIVE: He is out of bed to chair. Still pretty short of breath and cough. No bowel movement. No nausea. No diarrhea. No leg pain. No leg swelling. PHYSICAL EXAMINATION GENERAL: [id number] distress, cough and short of breath. VITAL SIGNS: Temperature 98, heart rate is 99, respiratory rate is 20, blood pressure 102/70, pulse ox 97% on 2 liters nasal cannula. HEENT: Moist mucous membrane, small oral cavity. NECK: Supple. No JVD. LUNGS: Bilateral rhonchi and wheezing. Prolonged expiratory phase. HEART: S1 and S2. ABDOMEN: Soft and nontender. No organomegaly. EXTREMITIES: There is no edema. NEUROLOGIC: Awake and alert. Follow simple command. MEDICATIONS: He is on Mucomyst 20% inhaled twice a day, Brovana inhaled twice a day, Claritin 10 mg at bedtime, DuoNeb q. 12 hours p.r.n., Ecotrin 81 mg daily, lactulose 20 mg daily, Flomax 0.4 mg daily, Levaquin 500 mg daily, Lipitor 10 mg daily, Lovenox 40 mg daily, Milk of magnesia p.r.n. basis, Plavix 75 mg daily, Protonix 40 mg twice a day, Pulmicort inhaled twice a day, Singulair 10 mg at bedtime, Solu-Medrol 40 mg twice a day, theophylline 300 mg daily, Tylenol p.r.n., Xanax 0.25 mg twice a day p.r.n. IMPRESSION AND PLAN: Chronic obstructive lung disease, interstitial infiltrate, pulmonary fibrosis, lung nodules, coronary artery disease, history of coronary stent, hyperlipidemia, anxiety disorder, and constipation. Continue IV and inhaled bronchodilator, antibiotics, gastric and deep venous thrombosis prophylaxis, and stool softener. Thank you and we will follow with you. Emani Phipps MD
[2017-06-12] MEDS: levoFLOXacin 500 mg in D5W 500 MG/100 ML BAG IVPB SCH (05:15)
[2017-06-12] MEDS: Pantoprazole 40 mg EC Tab PO SCH ×2 (05:16→17:00)
[2017-06-12] MEDS: MethylPREDNISolone 40 mg Vial IVP SCH ×2 (05:16→18:08)
[2017-06-12] MEDS: Arformoterol 15 mcg/2 ml Inh Sol IH SCH ×2 (07:27→20:07)
[2017-06-12] MEDS: Acetylcysteine 20% Inhal Soln (4ml) IH SCH ×2 (07:27→20:07)
[2017-06-12] MEDS: Budesonide 0.5 mg/2 ml Inhal Susp UD IH SCH ×2 (07:27→20:07)
[2017-06-12] MEDS: Enoxaparin 40 mg Syringe SC SCH ×2 (10:52→10:58)
[2017-06-12] MEDS: Magnesium Hydroxide Susp 30 ml UD PO SCH ×2 (10:54→13:37)
[2017-06-12] MEDS: Albuterol-Ipratrop 3 mg / 0.5 (3 ml) UD IH PRN (13:55)
--- NOTE | 2017-06-12 17:28 | PN ---
PULMONARY PROGRESS NOTE REFERRING PHYSICIAN: Dr. De Santiago. SUBJECTIVE: The patient is sitting up in a chair, feels much better, still have cough, shortness of breath, and wheezing. Had a bowel movement yesterday. No chest pain, no nausea. No abdominal pain. No leg pain or leg swelling. OBJECTIVE: GENERAL: In no acute distress. VITAL SIGNS: Temperature is 98, heart rate is 108, respiratory rate is 14, blood pressure 113/63, pulse ox 96% on 2L nasal canula. HEENT: Moist mucous membrane. No ulcer or thrush noted. NECK: Supple. No JVD. LUNGS: Has a better airflow, expiratory wheezing is there, but much better airflow. HEART: S1 and S2. ABDOMEN: Soft, nontender, no organomegaly. EXTREMITIES: No edema. NEUROLOGIC: Awake and alert, follows simple commands. MEDICATIONS: He is on Mucomyst 20% inhaled twice a day, Brovana inhaled twice a day, Claritin 10 mg daily, DuoNeb q.12 hour p.r.n., Ecotrin 81 mg daily, Flomax 0.4 mg daily, Levaquin 500 mg daily, Lipitor 10 mg daily, Plavix 75 mg daily, Protonix 40 mg daily, Pulmicort inhaled twice a day, Singulair 10 mg daily, Solu-Medrol 40 mg q.12 hour, theophylline 24-hour 300 mg daily, Tylenol p.r.n., Xanax 0.25 mg twice a day p.r.n. LABORATORY DATA: Reviewed; no new lab is available because the patient refused blood drawing. IMPRESSION AND PLAN: Chronic obstructive lung disease; interstitial infiltrate; pulmonary fibrosis; lung nodule; coronary artery disease, history of coronary artery stent; hyperlipidemia; anxiety disorder. From pulmonary point of view, doing much better. I will continue present medication including IV steroid and inhaled bronchodilator, p.o. bronchodilator. Stool softener had been discontinued. Gastric prophylaxis, deep venous thrombosis prophylaxis, fall precaution. Thank you and we will follow with you. Emani Phipps MD
--- NOTE | 2017-06-13 04:34 | PN ---
SUBJECTIVE: The patient is a 76-year-old male. The patient was seen and examined on the bedside, looking comfortable. No nausea, vomiting or diarrhea. No hematuria or hematochezia. No swelling of the leg. No chest pain or palpitations. Cough is better. Shortness of breath is better. PHYSICAL EXAMINATION: VITAL SIGNS: Temperature 98, heart rate 108, respiratory rate 14, blood pressure 113/63, pulse oximetry 99% on 2 liters nasal canula. HEENT: Head normocephalic, atraumatic. Eyes; PERRLA. Extraocular muscles are intact. Conjunctivae are clear. Nose is patent. Mucous membranes are moist. NECK: Supple. No carotid bruits or thyromegaly. CHEST: Bilaterally symmetrical. HEART: S1 and S2 positive. LUNGS: Clear to auscultation. ABDOMEN: Soft. Bowel sounds positive. No organomegaly. EXTREMITIES: No edema. No cyanosis. NEUROLOGIC: The patient is awake and alert. Moving all four extremities. No focal deficits. MEDICATIONS: Mucomyst, Brovana, Claritin, DuoNeb, Ecotrin, Flomax, Levaquin, Lipitor, Plavix, Protonix, Pulmicort, Singulair, Solu-Medrol, theophylline, Tylenol, and Xanax. LABORATORY DATA: We do not have recent lab today, but I reviewed old labs , the patient is refusing new labs. ASSESSMENT AND PLAN: Mr. Morgan Flores is a 76-year-old male with chronic obstructive lung disease, interstitial lung infiltrates, pulmonary fibrosis, lung nodules, coronary artery disease status post coronary artery stents, hypercholesterolemia, anxiety, gastroesophageal reflux disease, dyspepsia, history of constipation now relieved. Refusing his milk of magnesia and lactulose, we discontinued. The patient refused taking Lovenox, so we discontinued. According to the patient, he is walking enough. He is on inhaled bronchodilators and steroids; we will taper down steroids. GI and DVT prophylaxis. Repeat labs. We will follow. Sanna De Santiago MD [id number]
[2017-06-13] MEDS: Pantoprazole 40 mg EC Tab PO SCH ×2 (05:11→17:19)
[2017-06-13] MEDS: levoFLOXacin 500 mg in D5W 500 MG/100 ML BAG IVPB SCH (05:11)
[2017-06-13] MEDS: MethylPREDNISolone 40 mg Vial IVP SCH ×2 (05:13→17:19)
[2017-06-13] MEDS: Acetylcysteine 20% Inhal Soln (4ml) IH SCH ×2 (07:13→19:45)
[2017-06-13] MEDS: Arformoterol 15 mcg/2 ml Inh Sol IH SCH ×2 (07:13→19:45)
[2017-06-13] MEDS: Budesonide 0.5 mg/2 ml Inhal Susp UD IH SCH ×2 (07:14→19:45)
--- NOTE | 2017-06-13 08:38 | PN ---
DATE: 06/11/2017 SUBJECTIVE: The patient is a 76-year-old male. The patient is seen and examined on the bedside, looking comfortable. Cough is better, shortness of breath. No nausea, vomiting or diarrhea. No hematuria or hematochezia. Abdominal pain is better. No burning sensation in the stomach. PHYSICAL EXAMINATION VITAL SIGNS: Temperature 98.6, pulse 99, respiratory rate 20, blood pressure 102/70. HEENT: Head is normocephalic and atraumatic. Eyes; PERRLA. Extraocular muscles are intact. Conjunctivae are clear. Nose is patent. Mucous membranes are moist. NECK: Supple. No carotid bruits. No JVD or thyromegaly. CHEST: Bilaterally symmetrical. HEART: S1 and S2 positive. LUNGS: Bilateral rhonchi and wheezing. Prolonged expiratory phase. ABDOMEN: Soft. Bowel sounds positive. No organomegaly. EXTREMITIES: No edema. No cyanosis. NEUROLOGICAL: The patient is awake and alert. Moving all 4 extremities. No focal deficits. LABORATORY DATA: We do not have recent labs today, but reviewed old labs. MEDICATIONS: Mucomyst, Brovana, Claritin, DuoNeb, Ecotrin, lactulose, Flomax, Levaquin, Lipitor, Lovenox, milk of magnesia, Plavix, Protonix, Pulmicort, Singulair, Solu-Medrol, theophylline, Tylenol, and Xanax. ASSESSMENT AND PLAN: Mr. Sandra Mora is a 76-year-old male with history of chronic obstructive lung disease, emphysema, interstitial infiltrate, pulmonary fibrosis, lung nodules, coronary artery disease, status post cardiac stenting, history of hypercholesterolemia, anxiety, constipation, gastroesophageal reflux disease, dyspepsia. Continue IV and inhaled bronchodilators, antibiotics, gastrointestinal and deep venous thrombosis prophylaxis, stool softeners, physical therapy. We will followup. Sanna De Santiago MD
[2017-06-13] MEDS: Albuterol-Ipratrop 3 mg / 0.5 (3 ml) UD IH PRN (14:21)
[2017-06-13] MEDS ORDERED: MethylPREDNISolone 40 mg Vial IVP SCH (21:18)
--- NOTE | 2017-06-14 00:23 | PN ---
PULMONARY PROGRESS NOTE DATE: 06/13/2017 REFERRING PHYSICIAN: Dr. De Santiago. SUBJECTIVE: He is out of bed to chair, feels better still has cough and shortness of breath, but has baseline wheezing. No nausea. No vomiting. No diarrhea. No leg pain or swelling. OBJECTIVE: GENERAL: In no acute distress. VITAL SIGNS: Temperature is 98, heart rate is 114, respiratory rate is 20, blood pressure 119/57 and pulse ox 95% on nasal canula. HEENT: Moist mucous membrane. Crowded airway. NECK: Supple. No JVD. LUNGS: Prolonged expiratory phase with some wheezing. HEART: S1 and S2. ABDOMEN: Soft, nontender, no organomegaly. EXTREMITIES: No edema. NEUROLOGIC: Awake and alert, follows simple commands. MEDICATIONS: He is on Mucomyst 20% inhaled twice a day, Brovana inhaled twice a day, Claritin 10 mg daily, albuterol/Atrovent nebulizer q. 12 hour p.r.n., Ecotrin 81 mg daily, Flomax 0.4 mg daily, Lasix 20 mg daily, Levaquin 500 mg daily, Lipitor 10 mg daily, Plavix 75 mg daily, Protonix 40 mg daily, Pulmicort inhaled twice a day, Singulair 10 mg daily, Solu-Medrol 30 mg q. 12 hours, multivitamin daily, theophylline 300 mg daily, Tylenol p.r.n., Xanax 0.25 mg q. 12 hours p.r.n. IMPRESSION AND PLAN: Chronic obstructive lung disease, interstitial infiltrate, pulmonary fibrosis, lung nodules, coronary artery disease, history of coronary stent, hyperlipidemia, and anxiety disorder. The patient insisted to go home tomorrow, could be discharged home from a pulmonary point of view. Taper steroids off for the next 7 days and go back on his original I believe 5 mg daily prednisone, continue inhaled bronchodilator, discontinue DVT prophylaxis. He is refusing the Lovenox. Gastric prophylaxis. Also want pain medication p.r.n. basis, may be tramadol 50 mg could be given ten tablets or so upon on discharge. Thank you and we will follow with you. Emani Phipps MD
--- NOTE | 2017-06-14 02:39 | PN ---
DATE: SUBJECTIVE: The patient is a 76-year-old male. The patient was seen and examined on the bedside, looking comfortable. No nausea, vomiting, or diarrhea. No hematuria or hematochezia. The patient has swelling of the leg. No chest pain or palpitations. Cough is getting better. Shortness of breath is getting better. Getting physical therapy. PHYSICAL EXAMINATION: VITAL SIGNS: Temperature 98.3, pulse 114, blood pressure 119/57, and respiratory rate 22. HEENT: Head is normocephalic and atraumatic. Eyes; PERRLA. Extraocular muscles are intact. Conjunctivae clear. Nose is patent. NECK: Supple. No carotid bruits. No JVD or thyromegaly. CHEST: Bilaterally symmetrical. HEART: S1 and S2 positive. LUNGS: Clear to auscultation. ABDOMEN: Soft. Bowel sounds positive. No organomegaly. EXTREMITIES: Positive edema. No cyanosis. NEUROLOGIC: The patient is awake and alert. Moving all 4 extremities. No focal deficits. MEDICATIONS: Acetylcysteine, Brovana, Claritin, DuoNeb, Ecotrin, Flomax, Lasix, levofloxacin, Lipitor, Plavix, Protonix, Pulmicort, Singulair, Solu-Medrol tapering dose, theophylline, Tylenol, tramadol, and Xanax. LABORATORY DATA: The patient is always refusing labs, that is why we do not have recent labs. ASSESSMENT AND PLAN: Mr. Morgan Flores is a 76-year-old male with multiple medical problems, has swelling of the leg, I gave a dose of Lasix, chronic obstructive lung disease, interstitial infiltrates, pulmonary fibrosis, lung nodules, coronary artery disease, history of coronary artery stents, hypercholesterolemia, anxiety, gastroesophageal reflux disease, dyspepsia, and history of constipation now improved. Doing much much better. Getting IV steroids and Levaquin. We will make it p.o. Dose of Lasix given. Length of time discussion done with the patient, the patient's family , on the bedside also, discussion done with him also, and we will follow. Sanna De Santiago MD [facility] # [id number] MTDD
[2017-06-14] MEDS: Pantoprazole 40 mg EC Tab PO SCH (05:39)
[2017-06-14 05:52] LABS: HEMATOCRIT 39.4 % (42.0-52.0); MEAN CELL VOLUME 90.6 fl (80.0-105.0); MEAN CORPUSCULAR HEMOGLOBIN 29.9 pg (25.0-35.0); MEAN PLATELET VOLUME 8.9 fl (7.0-11.0); RED CELL DISTRIBUTION WIDTH 13.9 % (11.5-14.5); WHITE BLOOD COUNT 8.6 10^3/ul (4.5-11.0)
[2017-06-14 06:07] LABS: BLOOD UREA NITROGEN 24 mg/dL (7-21); CALCIUM 8.7 mg/dL (8.4-10.5); CARBON DIOXIDE 33 mmol/L (21-33); CHLORIDE 99 mmol/L (95-110); GFR AFRICAN-AMERICAN > 60; GLUCOSE,RANDOM 106 mg/dL (70-110); POTASSIUM 3.9 mmol/L (3.6-5.0); SODIUM 137 mmol/L (132-148)
[2017-06-14 06:32] VITALS: RESP 20
[2017-06-14] MEDS: Budesonide 0.5 mg/2 ml Inhal Susp UD IH SCH (07:17)
[2017-06-14] MEDS: Arformoterol 15 mcg/2 ml Inh Sol IH SCH (07:17)
[2017-06-14 16:35] VITALS: BP 106/71; PULSE 103; TEMP 98.8; O2SAT 98
--- NOTE | 2017-06-14 19:42 | US ---
HISTORY: Bilateral lower extremity venous ultrasound PHYSICIAN(S): Iftikhar Leonardo MD. TECHNIQUE: Duplex sonography and color-flow Doppler with graded compression were used to evaluate the deep venous systems of both lower extremities. FINDINGS: The visualized deep venous systems of both lower extremities are sonographically normal and compressible. Normal wave forms and augmentation are seen. There is no sonographic evidence for deep venous thrombosis in the visualized segments of both lower extremities. IMPRESSION: No sonographic evidence for deep venous thrombosis in the visualized segments of both lower extremities.
--- NOTE | 2017-06-14 23:28 | PN ---
DATE: 06/14/2017 PULMONARY PROGRESS NOTE REFERRING PHYSICIAN: Sanna De Santiago MD SUBJECTIVE: He is sitting up in a chair, being discharged home today, feels much better. Decreased cough and sputum production. No nausea. No vomiting. No diarrhea. Had some ankle swelling. OBJECTIVE: GENERAL: In no acute distress. VITAL SIGNS: Temperature is 98, heart rate is 103, respiratory rate is 20, blood pressure 106/71, pulse ox 98% on 3 liters nasal canula. HEENT: Moist mucous membrane. No ulcer or thrush. NECK: Supple. No JVD. LUNGS: Has expiratory wheezing and few rhonchi. HEART: S1 and S2. ABDOMEN: Soft, nontender, no organomegaly. EXTREMITIES: Has ankle edema. NEUROLOGIC: Awake and alert, follows simple commands. MEDICATIONS: Brovana inhale twice a day, Claritin 10 mg bedtime, albuterol/Atrovent nebulizer q. 12 hour p.r.n., Ecotrin 81 mg daily, Flomax 0.4 mg daily, Lasix 20 mg daily, Lipitor 10 mg daily, Pravastatin 5 mg daily, Protonix 40 mg twice a day, Pulmicort inhaled twice a day, Singulair 10 mg daily, Solu-Medrol 20 mg q. 12 hours, theophylline 300 mg daily, Ultram 50 mg p.r.n. basis. LABORATORY DATA: Shows hemoglobin 13.0, hematocrit 39.4, WBC 8.6 and platelet count is 257. Sodium 137, potassium 3.9, chloride 99, bicarbonate 33, BUN 24, creatinine 0.8, calcium 8.7. Had a Doppler lower extremity done and officially report was negative for DVT according to tech note. IMPRESSION AND PLAN: Chronic obstructive lung disease, interstitial infiltrate, pulmonary fibrosis, lung nodules, coronary artery disease, coronary stent, hyperlipidemia, and anxiety disorder. Pulmonary point of view, he is doing is okay, much improved, could be discharged home on tapered dose of steroids. Continue on his home previous medications. Gastric prophylaxis. Refuse DVT prophylaxis. Thank you. Emani Phipps MD
--- NOTE | 2017-06-15 02:33 | DS ---
CHIEF COMPLAINT: He is fatigued, he is tired. He is not able to do his ADLs and lives alone. HISTORY OF PRESENT ILLNESS: Mr. Sandra Mora, a 76-year-old male who is well known to me from my office and multiple hospitalizations, he was admitted on the acute side for observation of asthma, coughing, palpitations, shortness of breath, on physical examination normal vitals. The patient was on Plavix 10 mg daily. The patient was on Pulmicort inhaler, Solu-Medrol antibiotics and nebulizer treatment given. He was having constipation. Stool softeners given, his constipation relieved. Then he was having GERD, dyspepsia. With PPI, his burning sensation was gone. Then he was very tremulous, not able to do his ADLs, very frequently tired, even cannot go to the bathroom. He was getting tachypenic. TCU was offered, in the beginning patient refused and gave us a hard time to go to TCU. Finally, we were able to convince him, he went to TCU, stayed there for a couple of days, got physical therapy, occupational therapy, tapered down his Solu-Medrol. Discharged on 06/14/2017 to home with tapering dose of steroids for asthma condition and his anxiety medication and Tramadol. PAST MEDICAL HISTORY: Chronic obstructive lung disease, hypertension, history of renal disease, history of sickle cell disease, coronary artery disease, history of coronary stent. SOCIAL HISTORY: History of heavy smoking, but now quit. No drugs. No ethanol. FAMILY HISTORY: No significant cardiopulmonary disease. ALLERGIES: PATIENT IS ALLERGIC TO AMPICILLIN, PENICILLIN AND SULFA. REVIEW OF SYSTEMS: Patient is examined on the bedside, looking comfortable. No nausea, vomiting, or diarrhea. No hematuria, no hematochezia. No swelling of the legs. No chest pain. No palpitations. No dizziness. Shortness of breath got better, coughing got better, but still having swelling of the legs on the frontal part of the legs just adjacent to the knees, negative for DVT. Discharged home with the prescriptions of medications. PHYSICAL EXAMINATION: VITAL SIGNS: Temperature 98.8, pulse 103, blood pressure 106/71, respiratory rate 20. HEENT: Head is normocephalic and atraumatic. Eyes: PERRLA. Extraocular muscles are intact. Conjunctivae are clear. Nose is patent. NECK: Supple. No carotid bruits. No thyromegaly. CHEST: Bilaterally symmetrical. HEART: S1 and S2 positive. LUNGS: Clear to auscultation. ABDOMEN: Soft. Bowel sounds present. No organomegaly. EXTREMITIES: No edema. No cyanosis. NEUROLOGIC: The patient is awake and alert. Moving all four extremities. No focal deficits. LABORATORY DATA: White blood cells 8.6, hemoglobin 7.0, hematocrit 39.4, platelets 257. Sodium 137, potassium 3.9, BUN 24, creatinine 0.8. ASSESSMENT AND PLAN: Mr. Sandra Mora, is a 76-year-old male with anemia and renal insufficiency improved. He has swelling of the legs on frontal part of the leg as per Iftikhar Leonardo. No sonographic evidence of deep vein thrombosis in the lower segment of both lower extremities. Has a history of chronic obstructive pulmonary disease, asthma and pulmonary fibrosis. History of constipation relieved. Gastroesophageal reflux disease, dyspepsia improved. History of coronary artery disease, cardiac stenting, interstitial infiltrates. He got treatment for exacerbation of left lung metastasis recurrence, hypercholesteremia, anxiety. Doing much more better. Intravenous Solu-Medrol is changed to Medrol Dosepak. Levaquin, the patient already got almost 9-10 days of antibiotics. Gave Xanax. Gastrointestinal and deep vein thrombosis prophylaxis. Followup as outpatient. Sanna De Santiago MD
== END 2017-06-14 18:01 | disposition home or self-care (01) | DRG 192 ==
LOC: TRCU 16:44
PROVIDERS: ADMIT Internal Medicine; ATTEND Internal Medicine
PROC: F07Z9FZ Gait Training/Functional Ambulation Treatment using Assistive, Adaptive, Supportive or Protective Equipment (ICD-10-PCS; principal; 2017-06-11)
PROC: F07Z8ZZ Transfer Training Treatment (ICD-10-PCS; 2017-06-11)
PROC: F08Z4ZZ Home Management Treatment (ICD-10-PCS; 2017-06-13)
DX: J44.1 Chronic obstructive pulmonary disease with (acute) exacerbation (principal); J84.10 Pulmonary fibrosis, unspecified; K21.9 Gastro-esophageal reflux disease without esophagitis; I10 Essential (primary) hypertension; I25.10 Atherosclerotic heart disease of native coronary artery without angina pectoris; K59.09 Other constipation; F41.9 Anxiety disorder, unspecified; E78.5 Hyperlipidemia, unspecified; E78.00 Pure hypercholesterolemia, unspecified; N28.9 Disorder of kidney and ureter, unspecified; R91.1 Solitary pulmonary nodule; Z95.5 Presence of coronary angioplasty implant and graft; Z87.891 Personal history of nicotine dependence; Z88.1 Allergy status to other antibiotic agents; Z88.0 Allergy status to penicillin; Z88.2 Allergy status to sulfonamides; Z87.442 Personal history of urinary calculi; Z85.828 Personal history of other malignant neoplasm of skin

== ENCOUNTER 2018-05-07 08:46 | Inpatient (IN) | payer MEDICARE, MEDICAID ==
[2018-05-07] MEDS ORDERED: Levalbuterol 1.25 MG/3 ML Inhal Soln UD IH STA ×2 (09:16→09:38)
[2018-05-07] MEDS ORDERED: Magnesium Sulfate 2 gm/50 ml 2 GM/50 ML BAG IVPB ONE (09:17)
[2018-05-07 09:25] LABS: VENOUS BLOOD GAS BASE EXCESS 5.5 mmol/L (0.0-2.0); VENOUS BLOOD GAS PO2 33 mm/Hg (30-55); VENOUS BLOOD PH 7.37 (7.32-7.43)
[2018-05-07 09:27] LABS: BASO # 0.01 K/mm3 (0.0-2.0); BASO % 0.1 % (0.0-3.0); EOS # 0.1 (0.0-0.7); EOS % 0.8 % (1.5-5.0); GRAN # 5.91 (1.4-6.5); GRAN % 67.5 % (50.0-68.0); HEMOGLOBIN 14.6 g/dL (14.0-18.0); LYMPH # 2.1 (1.2-3.4); LYMPH % 23.5 % (22.0-35.0); MEAN CELL VOLUME 87.2 fl (80.0-105.0); MEAN CORPUSCULAR HEMOGLOBIN 29.1 pg (25.0-35.0); MEAN CORPUSCULAR HGB CONC 33.4 g/dl (31.0-37.0); MEAN PLATELET VOLUME 9.1 fl (7.0-11.0); MONO # 0.7 (0.1-0.6); MONO % 8.1 % (1.0-6.0); RBC 5.01 10^6/uL (3.5-6.1); RED CELL DISTRIBUTION WIDTH 13.9 % (11.5-14.5); WHITE BLOOD COUNT 8.8 10^3/ul (4.5-11.0)
[2018-05-07 09:36] LABS: ALB/GLOB RATIO 1.4 (1.1-1.8); ALBUMIN 3.9 g/dL (3.0-4.8); ALT/SGPT 24 U/L (7-56); AST/SGOT 19 U/L (17-59); BLOOD UREA NITROGEN 16 mg/dL (7-21); GFR NON-AFRICAN AMERICAN > 60; INR 1.19; PROTHROMBIN TIME 13.7 SECONDS (9.4-12.5)
[2018-05-07] MEDS ORDERED: Magnesium Sulfate 2 GM in 50 ml Water IVPB ONE (09:45)
[2018-05-07 09:47] LABS: TROPONIN I 0.03 ng/mL
--- NOTE | 2018-05-07 10:25 | ED PDOC ---
Arrival/HPI - General Chief Complaint: Shortness Of Breath Time Seen by Provider: 05/07/18 09:13 Historian: Patient - History of Present Illness Narrative History of Present Illness (Text): 05/07/18 10:19 77yo male with pmhx of COPD who was bib EMS for SOB, cough, wheezing x 2days. States he was using his inhaler at home without relieve. He has been admitted in the past for COPD. Never intubated and not steroid dependent. He denies fever , although he was febrile on triage. Denies any other complaint. Past Medical History - Provider Review Nursing Documentation Reviewed: Yes - Infectious Disease Hx of Infectious Diseases: None - Tetanus Immunization Tetanus Immunization: Unknown - Cardiac Hx Cardiac Disorders: Yes (CAD; stent) - Pulmonary Hx Chronic Obstructive Pulmonary Disease (COPD): Yes - Neurological Hx Neurological Disorder: No - HEENT Hx HEENT Disorder: Yes Hx Cataracts: Yes - Renal Hx Kidney Stones: Yes - Endocrine/Metabolic Hx Endocrine Disorders: No - Hematological/Oncological Hx Cancer: Yes (skin) - Integumentary Hx Dermatological Disorder: Yes (skin cancer) - Musculoskeletal/Rheumatological Hx Falls: No - Gastrointestinal Hx Gastrointestinal Disorders: No - Genitourinary/Gynecological Hx Genitourinary Disorders: Yes Hx Reproductive Disorders: Yes (BPH) - Psychiatric Hx Psychophysiologic Disorder: No Hx Substance Use: No - Surgical History Other/Comment: skin cancer removal - behind right ear - Anesthesia Hx Anesthesia: Yes Hx Anesthesia Reactions: No Hx Malignant Hyperthermia: No - Suicidal Assessment Feels Threatened In Home Enviroment: No Family/Social History - Physician Review Nursing Documentation Reviewed: Yes Family/Social History: Unknown Family HX Smoking Status: Former Smoker Hx Alcohol Use: Yes Hx Substance Use: No Hx Substance Use Treatment: No Allergies/Home Meds Allergies/Adverse Reactions: Allergies ampicillin Allergy (Verified 05/07/18 08:56) RASH Penicillins Allergy (Verified 05/07/18 08:56) RASH Sulfa (Sulfonamide Antibiotics) Allergy (Verified 05/07/18 08:56) RASH Home Medications: Home Meds Medication Instructions Recorded Confirmed Fluticasone Propionate [Flonase 50 mcg NS PRN PRN 06/05/17 05/07/18 Allergy Relief] Loratadine [Claritin] 10 mg PO DAILY 06/05/17 05/07/18 Theophylline [Brett-24 Tab] 300 mg PO BID 06/05/17 05/07/18 predniSONE [Prednisone] 10 mg PO DAILY 06/05/17 05/07/18 Albuterol HFA [Ventolin HFA 90 0.09 mg IH DAILY 05/07/18 05/07/18 mcg/actuation (8 g)] Ranitidine HCl [Acid Supervisor Payroll] 150 mg PO BID 05/07/18 05/07/18 Theophylline [Brett-Dur] 200 mg PO DAILY 05/07/18 05/07/18 levoFLOXacin [Levaquin] 500 mg PO DAILY 05/07/18 05/07/18 Review of Systems - Physician Review All systems were reviewed & negative as marked: Yes - Review of Systems Constitutional: Normal Eyes: Normal ENT: Normal Respiratory: SOB, Cough, Wheezing. absent: Sputum Cardiovascular: Normal Gastrointestinal: Normal Genitourinary Male: Normal Musculoskeletal: Normal Skin: Normal Neurological: Normal Endocrine: Normal Hemo/Lymphatic: Normal Psychiatric: Normal Physical Exam Vital Signs Reviewed: Yes Vital Signs Temp Pulse Resp BP Pulse Ox 05/07/18 11:40 98.9 F 96 H 19 97 05/07/18 11:22 98.9 F 98 H 18 110/61 97 05/07/18 10:03 109 H 18 108/59 L 98 05/07/18 09:31 100.8 F H 05/07/18 08:57 100.8 F H 124 H 20 106/56 L 96 05/07/18 08:53 20 20 L Temperature: Afebrile Blood Pressure: Normal Pulse: Regular Respiratory Rate: Normal Appearance: Positive for: Well-Appearing, Non-Toxic, Comfortable Pain Distress: None Mental Status: Positive for: Alert and Oriented X 3 - Systems Exam Head: Present: Atraumatic, Normocephalic Pupils: Present: PERRL Extroacular Muscles: Present: EOMI Conjunctiva: Present: Normal Mouth: Present: Moist Mucous Membranes Neck: Present: Normal Range of Motion Respiratory/Chest: Present: Accessory Muscle Use (Supraclavivular muscle use), Wheezes (Inspiratory and expiratory wheeze), Rales. No: Respiratory Distress, Decreased Breath Sounds, Retracting, Rhonchi Cardiovascular: Present: Regular Rate and Rhythm, Normal S1, S2. No: Murmurs Abdomen: No: Tenderness, Distention, Peritoneal Signs Back: Present: Normal Inspection Upper Extremity: Present: Normal Inspection. No: Cyanosis, Edema Lower Extremity: Present: Normal Inspection. No: Edema Neurological: Present: GCS=15, CN II-XII Intact, Speech Normal Skin: Present: Warm, Dry, Normal Color. No: Rashes Psychiatric: Present: Alert, Oriented x 3, Normal Insight, Normal Concentration Medical Decision Making ED Course and Treatment: 05/07/18 19:21 77yo male bib EMS for SOB, cough, wheezing x 2days. He as febrile on presentation and in mild respiratory distress. 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 He was given mag sulfate and xopenex in ED Chest xray IMPRESSION: There is hyperinflation, as well as architectural distortion consistent with underlying emphysema. EKG Sinus tachy with occasion PVC @ 124bpm NSTEMI Lab was unremarkable. Un reevaluation pt continue to have wheeze and tachycardic. He was admitted for COPD exacerbation. Case was DW dr. alberto while she was in ED and she admitted pt to her service. - Lab Interpretations Lab Results: 05/07/18 09:04 05/07/18 09:04 Lab Results 05/07/18 09:04: Sodium 141, Chloride 101, Potassium 3.8, Carbon Dioxide 29, Anion Gap 14, BUN 16, Creatinine 0.8, Est GFR ( Amer) > 60, Est GFR (Non- Af Amer) > 60, Random Glucose 104, Calcium 9.0, Magnesium 1.9, Total Bilirubin 1.1, AST 19, ALT 24, Alkaline Phosphatase 55, Lactate Dehydrogenase 428, Total Creatine Kinase 55, Troponin I 0.03, Total Protein 6.7, Albumin 3.9, Globulin 2.8, Albumin/Globulin Ratio 1.4 05/07/18 09:04: pO2 33, VBG pH 7.37, VBG pCO2 56.0, VBG HCO3 32.4 H, VBG Total CO2 34.1 H, VBG O2 Sat (Calc) 64.9, VBG Base Excess 5.5 H, VBG Potassium 3.9, Sodium 139.0, Chloride 102.0, Glucose 106, Lactate 1.2, FiO2 21.0, Venous Blood Potassium 3.9 05/07/18 09:04: WBC 8.8, RBC 5.01, Hgb 14.6, Hct 43.7, MCV 87.2 D, MCH 29.1, MCHC 33.4, RDW 13.9, Plt Count 162, MPV 9.1, Gran % 67.5, Lymph % (Auto) 23.5, Owsley % (Auto) 8.1 H, Eos % (Auto) 0.8 L, Baso % (Auto) 0.1, Gran # 5.91, Lymph # (Auto) 2.1, Owsley # (Auto) 0.7 H, Eos # (Auto) 0.1, Baso # (Auto) 0.01 05/07/18 09:04: PT 13.7 H, INR 1.19, APTT 29.0 - RAD Interpretation Radiology Orders: 05/07/18 09:14 CHEST PORTABLE [RAD] Stat - Medication Orders Current Medication Orders: Acetylcysteine (Acetylcysteine 20%) 4 ml IH [id number] [facility] Albuterol/Ipratropium (Duoneb 3 Mg/0.5 Mg (3 Ml) Ud) 3 ml IH [id number] PRN PRN Reason: Shortness of Breath Arformoterol Tartrate (Brovana) 15 mcg IH [id number] [facility] Aspirin (Ecotrin) 81 mg PO DAILY [facility] Budesonide (Pulmicort Respules) 0.25 mg IH [id number] [facility] Doxycycline Hyclate (Doryx) 100 mg PO Q12 [facility] PRN Reason: Protocol Aztreonam (Azactam 1 Gm) 100 mls @ 100 mls/hr IVPB Q8 [facility] PRN Reason: Protocol Stop: 05/08/18 06:59 Insulin Human Lispro (Humalog Low) 0 units SC ACHS [facility] PRN Reason: Protocol Loratadine (Claritin) 10 mg PO DAILY [facility] Methylprednisolone (Solu-Medrol) 40 mg IVP Q6 [facility] Last Admin: 05/07/18 16:59 Dose: 40 mg IVP Administration Document 05/07/18 16:59 REYMUNDO (Rec: 05/07/18 16:59 REYMUNDO [id number] Charges for Administration # of IVP Administrations 1 Montelukast Sodium (Singulair) 10 mg PO HS [facility] Pantoprazole Sodium (Protonix Ec Tab) 40 mg PO 0600 [facility] Roflumilast (Daliresp) 500 mcg PO DAILY [facility] Last Admin: 05/07/18 16:57 Dose: 500 mcg Discontinued Medications Acetaminophen (Tylenol 325mg Tab) 650 mg PO STAT STA Stop: 05/07/18 09:14 Last Admin: 05/07/18 09:31 Dose: 650 mg MAR Pain/Vitals Document 05/07/18 09:31 [email or web address] (Rec: 05/07/18 09:33 [email or web address] [id number]) Vitals Temperature (97.6 F-99.6 F) 100.8 F Temperature Source Oral Magnesium Sulfate (Magnesium Sulfate 2 Gm/50 Ml Water) 2 gm in 50 mls @ 50 mls/ hr IVPB ONCE ONE Stop: 05/07/18 10:16 Last Admin: 05/07/18 09:56 Dose: Magnesium Sulfate (Magnesium Sulfate 2 Gm/50 Ml Water) 2 gm in 50 mls @ 50 mls/ hr IVPB ONCE ONE Stop: 05/07/18 10:44 Last Admin: 05/07/18 09:57 Dose: 50 mls/hr eMAR Start Stop Document 05/07/18 09:57 [email or web address] (Rec: 05/07/18 09:57 [email or web address] [id number]) Intravenous Solution Start Date 05/07/18 Start Time 09:57 Levalbuterol HCl (Xopenex) 1.25 mg IH STAT STA Stop: 05/07/18 09:17 Last Admin: 05/07/18 09:33 Dose: 1.25 mg Levalbuterol HCl (Xopenex) 1.25 mg IH STAT STA Stop: 05/07/18 09:39 Last Admin: 05/07/18 09:57 Dose: 1.25 mg Disposition/Present on Arrival - Present on Arrival Any Indicators Present on Arrival: No History of DVT/PE: No History of Uncontrolled Diabetes: No Urinary Catheter: No History of Decub. Ulcer: No History Surgical Site Infection Following: None - Disposition Have Diagnosis and Disposition been Completed?: Yes Diagnosis: COPD exacerbation Disposition: HOSPITALIZED Disposition Time: 11:10 Patient Plan: Admission Patient Problems: Current Active Problems Problem Status Onset COPD exacerbation Acute Condition: FAIR
--- NOTE | 2018-05-07 10:47 | RAD ---
HISTORY: SOB COMPARISON: Chest x-ray performed 06/06/17 TECHNIQUE: Chest, one view. FINDINGS: LUNGS: v Please note that chest x-ray has limited sensitivity for the detection of pulmonary masses. PLEURA: No significant pleural effusion identified. No definite pneumothorax . CARDIOVASCULAR: Heart size appears within normal limits. OSSEOUS STRUCTURES: Degenerative changes. VISUALIZED UPPER ABDOMEN: Unremarkable. OTHER FINDINGS: None. IMPRESSION: There is hyperinflation, as well as architectural distortion consistent with underlying emphysema.
[2018-05-07 13:53] VITALS: BMI 20.3
[2018-05-07] MEDS: MethylPREDNISolone 40 mg Vial IVP SCH ×2 (16:59→23:24)
[2018-05-07] MEDS: Arformoterol 15 mcg/2 ml Inh Sol IH SCH (19:38)
[2018-05-07] MEDS: Acetylcysteine 20% Inhal Soln (4ml) IH SCH (19:38)
[2018-05-07] MEDS: Budesonide 0.25 mg/2 ml Inhal Susp UD IH SCH (19:39)
[2018-05-07] MEDS: Aztreonam 1 Gm in NS 100mL 100 ML IVPB SCH (21:21)
[2018-05-07] MEDS: Insulin Lispro (humaLOG) LOW Coverage SC SCH (22:02)
--- NOTE | 2018-05-08 02:00 | CON ---
Copied To: Emani Phipps MD Attending MD: Emani Phipps MD DATE: 05/07/2018 PULMONARY CONSULT REFERRING PHYSICIAN: Sanna De Santiago MD. REASON FOR CONSULT: Cough, shortness of breath, exacerbation of chronic lung disease. HISTORY OF PRESENT ILLNESS: This is a 77-year-old gentleman, well known to me from office and previous admission, known to have a severe obstructive lung disease, bilateral pulmonary infiltrates, steroids and oxygen dependent. 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 Comes in with cough, shortness of breath, sputum production. No fever. No hemoptysis. No hematemesis. No hematuria. No diarrhea reported. He is supposed to get a CT of the chest as outpatient, could not get it, could not go. PAST MEDICAL HISTORY: As per history of present illness. Also has a coronary artery disease, history of coronary stent, also has a history of cataract, history of renal stone, skin cancer, BPH. FAMILY HISTORY: No significant cardiopulmonary disease reported. SOCIAL HISTORY: Former smoker. Deny any alcohol abuse. ALLERGIES: TO AMPICILLIN, PENICILLIN, SULFA. MEDICATIONS: He is on Mucomyst inhaled every 12 hours, Azactam 1 g IV every 8 hours, Brovana inhaled twice a day, Daliresp 500 mcg daily, doxycycline 100 mg twice a day, DuoNeb every 6 hours p.r.n., Ecotrin 81 mg daily, insulin coverage, Protonix 40 mg daily, Pulmicort inhaled twice a day, Singulair 10 mg daily, Solu-Medrol 40 mg every 6 hours. REVIEW OF SYSTEMS: No headache. No rhinitis. Has cough, shortness of breath, sputum production. No chest pain. No nausea. No vomiting. No diarrhea. No leg pain or leg swelling. PHYSICAL EXAMINATION: GENERAL: Sitting up in a chair, acute short of breath, wheezing. VITAL SIGNS: Temp is 98, heart rate is 96, respiratory rate is 20, blood pressure 95/56, pulse ox 94% on nasal cannula. HEENT: Moist mucous membrane. No ulcer or thrush noted. NECK: Supple. No JVD. LUNGS: Have bilateral diffuse wheezing, scattered rhonchi. Few crackles. HEART: S1 and S2. ABDOMEN: Soft, nontender. No organomegaly. EXTREMITIES: No edema. NEUROLOGICAL: Awake and alert. Follows simple command. LABORATORY DATA: Shows hemoglobin 14.6, hematocrit 43.7, WBC 8.8, platelet is 162. INR 1.12, PTT 29. VBG showed pH 7.37, pCO2 of 56, O2 of 33. Sodium 141, potassium 3.8, chloride 101, bicarbonate 29, BUN 16, creatinine 0.8, glucose 104, calcium 9, magnesium 1.9, AST 19, ALT 24, alk phos is 55. LDH is 428. Troponin is 0.03. Albumin is 3.9. Chest x-ray done, which shows no significant changes, consistent with hyperinflation of the lung as well as the architectural distortion consistent with underlying emphysema. IMPRESSION AND PLAN: Exacerbation of chronic obstructive lung disease, interstitial infiltrate, pulmonary fibrosis, lung nodule, coronary artery disease, bronchiectasis, coronary stent, hyperlipidemia, anxiety disorder. We will continue antibiotics, IV and inhaled bronchodilators, antihistamine, leukotriene inhibitors, gastric prophylaxis, deep venous thrombosis prophylaxis. We will get CT of the chest without contrast to follow up on all lung nodules. Thank you and we will follow with you. Emani Phipps MD
--- NOTE | 2018-05-08 05:31 | CARD ---
APPROVED REPORT Date of service: 05/07/2018 EKG Measurement Heart [id number] <Conclusion> Poor data quality, interpretation may be adversely affected Sinus tachycardia with occasional premature ventricular complexes Right atrial enlargement Right superior axis deviation Pulmonary disease pattern Inferior-posterior infarct, age undetermined Abnormal ECG
[2018-05-08] MEDS: MethylPREDNISolone 40 mg Vial IVP SCH ×3 (05:47→17:38)
[2018-05-08] MEDS: Aztreonam 1 Gm in NS 100mL 100 ML IVPB SCH (05:47)
[2018-05-08] MEDS: Pantoprazole 40 mg EC Tab PO SCH (05:47)
[2018-05-08] MEDS: Acetylcysteine 20% Inhal Soln (4ml) IH SCH ×2 (07:19→19:50)
[2018-05-08] MEDS: Arformoterol 15 mcg/2 ml Inh Sol IH SCH ×2 (07:19→19:50)
[2018-05-08] MEDS: Budesonide 0.25 mg/2 ml Inhal Susp UD IH SCH (07:28)
[2018-05-08] MEDS ORDERED: Iohexol 350 MG/100 ML VIAL ONE (08:06)
[2018-05-08] MEDS: Insulin Lispro (humaLOG) LOW Coverage SC SCH ×4 (08:24→21:21)
--- NOTE | 2018-05-08 08:40 | HP ---
05/07/18 Copied To: Sanna De Santiago MD Attending MD: Sanna De Santiago MD The patient is a 77-year-old male. CHIEF COMPLAINT: Shortness of breath. HISTORY OF PRESENT ILLNESS: Mr. Morgan Flores is a 77-year-old male with past medical history of COPD, pulmonary fibrosis, steroid-induced diabetes, came with shortness of breath, coughing, wheezing from 2 days. Patient states that he was using his inhaler at home without relief. He has been admitted in the past for COPD, never intubated. Denies fever. No hematuria. No hematochezia. Denies any other complaints. No fever. No chills PAST MEDICAL HISTORY: Coronary artery disease with cardiac stenting, COPD, cataracts, kidney stones, skin cancer, BPH. FAMILY HISTORY: Father and mother, noncontributory. HABITS: Former smoker, quit now. No alcohol. No substance abuse. ALLERGIES: PATIENT IS ALLERGIC WITH PENICILLIN, SULFA. HOME MEDICATIONS: Flonase, Claritin, theophylline, prednisone, Ventolin, ranitidine, levofloxacin. REVIEW OF SYSTEMS: Patient was seen and examined at the bedside in the emergency room. Still coughing with shortness of breath, wheezing. No fever. No chills. No hematuria or hematochezia. No headache. No dizziness. PHYSICAL EXAMINATION: VITAL SIGNS: Temperature 98.9, T-max 100.8, heart rate 124, respiratory rate 20, blood pressure 106/56. HEENT: Head: Normocephalic and atraumatic. Eyes: PERRLA. Extraocular muscles are intact. Conjunctivae are clear. Nose patent. NECK: Supple. No carotid bruits. No JVD or thyromegaly. CHEST: Bilaterally wheezing, using accessory muscles, supraclavicular muscles, inspiratory and expiratory both wheezing. ABDOMEN: Soft. Bowel sounds positive. No organomegaly. HEART: S1 and S2 positive. EXTREMITIES: No edema. No cyanosis. NEUROLOGIC: The patient is awake and alert. Follow simple commands. Oriented x3. Cranial nerves II through XII grossly intact. LABORATORY DATA: White blood cell 6.8, hemoglobin 14.6, hematocrit 43.7, platelets 162. Sodium 141, potassium 3.8, BUN 16, creatinine 0.8. Glucose 104. ASSESSMENT AND PLAN: Mr. Morgan Flores is a 77-year-old male admitted with chronic obstructive pulmonary disease exacerbation, history of pulmonary fibrosis, coronary artery disease with cardiac stenting, history of cataract surgery, kidney stones, skin cancers, benign prostatic hyperplasia, copd exacerbation, started on Solu-Medrol. Seen by Dr. Phipps. Discussion done with emergency room physician. Home orders. We will follow up. Sanna De Santiago MD MTDChevy
[2018-05-08 09:17] LABS: PH,URINE 6.5 (4.7-8.0); URINE BILIRUBIN NEGATIVE (NEGATIVE); URINE BLOOD TRACE-INTACT (NEGATIVE); URINE GLUCOSE (UA) NEGATIVE (NEGATIVE); URINE LEUKOCYTE ESTERASE TRACE Leu/uL (NEGATIVE); URINE PROTEIN NEGATIVE mg/dL (<30 mg/dL); URINE UROBILINOGEN 0.2 E.U./dL (<1 E.U./dL)
[2018-05-08 09:52] LABS: URINE APPEARANCE CLEAR (CLEAR); URINE COLOR YELLOW (YELLOW)
--- NOTE | 2018-05-08 09:59 | CT ---
Date of service: 05/08/2018 PROCEDURE: CT Chest with contrast HISTORY: lung nodule COMPARISON: Comparison is made to the previous study dated 08/16/2015 TECHNIQUE: Contiguous axial images were obtained through the chest with intravenous contrast enhancement. Sagittal and coronal reconstructions were performed. IV contrast: 100 cc of Omnipaque 350. Radiation dose (DLP): 421.65 mGy-cm. This CT exam was performed using one or more of the following dose reduction techniques: Automated exposure control, adjustment of the mA and/or kV according to patient size, and/or use of iterative reconstruction technique. FINDINGS: LUNGS: There is 9.5 millimeter noncalcified nodule at the right lung lower lobe best seen on image 1 or 2 series 3 new compared to the previous exam. Close 3 months follow-up reassessment is recommended. Again noted are severe diffuse emphysematous changes in the lungs. There are reticular opacity seen at the lungs more prominent in the right upper lobe likely represents scar tissue. MEDIASTINUM: Unremarkable thoracic aorta. No aneurysm or dissection. Normal sized heart. The main pulmonary artery is mildly enlarged. No lymphadenopathy. PLEURA: No pleural fluid. No pneumothorax. BONES: No evidence of destructive bony lesion. Again seen is well defined lytic bony lesion at the L2 left pedicles with small central sclerotic changes may represent benign osteoid osteoma. UPPER ABDOMEN: Grossly unremarkable. OTHER FINDINGS: None. IMPRESSION: Interval appearance of 9.5 millimeter noncalcified nodule at the right lung lower lobe. The possibility of malignant neoplasm cannot be excluded. Close follow-up reassessment after 3 months is recommended. Alternatively further assessment by PET-CT may be obtained. Severe emphysema. Otherwise no significant interval change noted since the previous exam as described above.
[2018-05-08 10:03] LABS: URINE BACTERIA MOD (NEG)
[2018-05-08] MEDS: levoFLOXacin 750 MG TAB PO SCH (16:56)
--- NOTE | 2018-05-09 00:16 | PN ---
Copied To: Emani Phipps MD Attending MD: Emani Phipps MD DATE: 05/08/2018 PULMONARY PROGRESS NOTE REFERRING PHYSICIAN: Sanna De Santiago MD. SUBJECTIVE: He is lying in the bed, head at 45 degrees. Still has some cough, shortness of breath, sputum production. No nausea, no vomiting, no diarrhea. No leg pain or leg swelling. Complaining about of IV steroids. Also complaining about inhaled bronchodilator, only want to take albuterol-based inhalers. Has a cough, sputum production. No hemoptysis. No hematemesis. No hematuria. OBJECTIVE: GENERAL: In no acute distress. VITAL SIGNS: Temperature is 98, heart rate is 94, respiratory rate is 20, blood pressure 114/75, pulse ox 96% on 3 liter nasal cannula. HEENT: Moist mucous membrane. Crowded airway. NECK: Supple. No JVD. LUNGS: Have a bilateral wheezing. HEART: S1 and S2. ABDOMEN: Soft, nontender, no organomegaly. EXTREMITIES: There is no edema. NEUROLOGIC: Awake and alert, follows simple command. MEDICATIONS: He is on Mucomyst inhaled twice a day, Ambien 5 mg at bedtime, Brovana inhaled twice a day, Claritin 10 mg daily, Daliresp 500 mcg daily, DuoNeb every 6 hours p.r.n., Ecotrin 81 mg daily, insulin coverage, Levaquin added 750 mg daily, Protonix 40 mg daily, Singulair 10 mg daily, Solu-Medrol 40 mg changed to three times a day. LABORATORY DATA: Shows hemoglobin 14.6 yesterday. Blood sugar 147. CAT scan of the chest done, which shows right lower lobe new nodule. IMPRESSION AND PLAN: Exacerbation of chronic obstructive lung disease, interstitial infiltrate, pulmonary fibrosis, has a new lung nodule, coronary artery disease, bronchiectasis, coronary stent, hyperlipidemia, anxiety disorder. I had long discussion with the patient about his new finding of the lung nodule. He expressed understanding. He is a poor candidate for biopsy as well as any modalities including chemotherapy, radiation therapy; so, he just want observe with understanding risk of cancer. Solu-Medrol changed to three times a day, Ambien 5 mg at bedtime is added p.r.n. Nebulizers changed to only Brovana and Mucomyst. Pulmicort is discontinued. Gastric prophylaxis, deep vein thrombosis prophylaxis. We will order labs for the morning. Thank you and we will follow with you. Emani Phipps MD
[2018-05-09] MEDS: Pantoprazole 40 mg EC Tab PO SCH ×2 (05:29→10:31)
[2018-05-09 07:09] LABS: HEMOGLOBIN 14.3 g/dL (14.0-18.0); MEAN CELL VOLUME 87.4 fl (80.0-105.0); MEAN CORPUSCULAR HGB CONC 33.2 g/dl (31.0-37.0); MEAN PLATELET VOLUME 9.3 fl (7.0-11.0); RBC 4.93 10^6/uL (3.5-6.1); RED CELL DISTRIBUTION WIDTH 13.8 % (11.5-14.5); WHITE BLOOD COUNT 9.4 10^3/ul (4.5-11.0)
[2018-05-09 07:18] LABS: IRON 74 ug/dL (45-180)
[2018-05-09] MEDS: Arformoterol 15 mcg/2 ml Inh Sol IH SCH ×2 (07:20→19:29)
[2018-05-09] MEDS: Acetylcysteine 20% Inhal Soln (4ml) IH SCH ×2 (07:20→19:29)
[2018-05-09] MEDS: Albuterol-Ipratrop 3 mg / 0.5 (3 ml) UD IH PRN ×3 (07:20→19:29)
[2018-05-09 07:29] LABS: % IRON SATURATION 27 % (20-55); TOTAL IRON BINDING CAPACITY 268 ug/dL (261-462)
[2018-05-09] MEDS: Insulin Lispro (humaLOG) LOW Coverage SC SCH ×3 (07:30→16:03)
[2018-05-09 07:36] LABS: LDL CHOLESTEROL 90 mg/dL (0-129)
[2018-05-09 07:46] LABS: ALB/GLOB RATIO 1.4 (1.1-1.8); ALBUMIN 3.6 g/dL (3.0-4.8); ALT/SGPT 19 U/L (7-56); AST/SGOT 21 U/L (17-59); BLOOD UREA NITROGEN 24 mg/dL (7-21); CALCIUM 9.2 mg/dL (8.4-10.5); GFR NON-AFRICAN AMERICAN > 60; HDL CHOLESTEROL 63 mg/dL (29-60)
--- NOTE | 2018-05-09 08:30 | PN ---
Copied To: Sanna De Santiago MD Attending MD: Sanna De Santiago MD DATE: 05/08/2018 SUBJECTIVE: The patient is 77-year-old male. The patient was seen and examined on the bedside. Cough is better. Shortness of breath is better. No nausea or vomiting. No hematuria or hematochezia. No chest pain, no palpitation. No fever, no chills. PHYSICAL EXAMINATION: VITAL SIGNS: Temperature 97.7, pulse 94, blood pressure 114/75, respiratory rate 21. HEENT: Head is normocephalic and atraumatic. Eyes, PERRLA. Extraocular muscles are intact. Conjunctivae are clear. Nose is patent. Mucous membranes are moist. NECK: Supple. No carotid bruit. No JVD or thyromegaly. CHEST: Bilaterally symmetrical. LUNGS: Positive wheezing bilaterally. HEART: S1 and S2 positive. ABDOMEN: Soft. Bowel sounds present. No organomegaly. EXTREMITIES: No edema. No cyanosis. NEUROLOGICAL: The patient is awake, alert. Moving all 4 extremities. No focal deficit, oriented x3. MEDICATIONS: Acetylcysteine, Ambien, Brovana, Claritin, Daliresp, DuoNeb, aspirin, insulin, Levemir, Protonix, Singulair, Solu-Medrol. LABORATORY DATA: White blood cell 8.8, hemoglobin 14.6, and hematocrit 43.7, platelets 152. Sodium 141, potassium 3.8, BUN 15, creatinine 0.8, glucose 132. Urinalysis, ketone and leukocytes. ASSESSMENT AND PLAN: Mr. Flores is a 77-year-old male with diabetes mellitus, hematuria, proteinuria, came with shortness of breath, exacerbation of chronic obstructive pulmonary disease, steroid and oxygen dependency, coronary artery disease, status post cardiac stenting, history of cataract surgery, renal stones, skin cancer, benign prostatic hypertrophy, daily exacerbation of chronic obstructive pulmonary disease, started on Spiriva, doxycycline, rule out urinary tract infection. The patient has lung nodules as per Dr. Phipps. We will do CAT scan of the chest. Discussion done with the patient's nurse, Ashanti and Dr. Phipps. The patient is getting p.o. doxycycline. Gastrointestinal and deep venous thrombosis prophylaxes. Repeat labs. We will follow up. Sanna De Santiago MD [facility] # [id number] DAVIDA
[2018-05-09] MEDS: MethylPREDNISolone 40 mg Vial IVP SCH ×3 (10:29→19:22)
[2018-05-09] MEDS: levoFLOXacin 750 MG TAB PO SCH (10:29)
[2018-05-09 13:40] LABS: FOLATE 7.7 ng/mL
[2018-05-09] MEDS: Theophylline 100mg ER 24 hrs Cap PO SCH (17:55)
--- NOTE | 2018-05-09 22:52 | PN ---
Copied To: Emani Phipps MD Attending MD: Emani Phipps MD DATE: 05/09/2018 PULMONARY PROGRESS NOTE REFERRING PHYSICIAN: Dr. De Santiago SUBJECTIVE: The patient is sitting side of the bed, feels little better, still have cough, shortness of breath and wheezing. No nausea, no vomiting, no diarrhea. No leg pain or leg swelling. OBJECTIVE: GENERAL: In no acute distress. VITAL SIGNS: Temperature is 98, heart rate is 98, respiratory rate is 20, blood pressure 110/62, pulse ox 99% of 2 liters nasal cannula. HEENT: Moist mucous membranes. No ulcer or thrush noted. NECK: Supple. No JVD. LUNGS: Have bilateral wheezing and rhonchi. HEART: S1 and S2. ABDOMEN: Soft, nontender, no organomegaly. EXTREMITIES: No edema. NEUROLOGIC: Awake and alert, follows simple command. MEDICATIONS: He is on Mucomyst 4 mL inhaled twice a day, Ambien 5 mg at bedtime p.r.n., Brovana inhaled twice a day, Claritin 10 mg daily, DuoNeb every 6 hours p.r.n., Ecotrin 81 mg daily, Flomax 0.4 mg daily, insulin coverage, Levaquin 750 mg daily, Protonix 40 mg daily, Singulair 10 mg daily, Solu-Medrol 40 mg three times a day, Brett-Dur 200 mg daily. LABORATORY DATA: Shows hemoglobin 14.3, hematocrit 43.1, WBC 9.4, platelet is 205. Glucose 134. Sodium 144, potassium 4.5, chloride 104, bicarbonate 30, BUN 24, creatinine 0.9, hemoglobin A1c 6.2, calcium is 9.2, AST 21, ALT 19, alk phos is 46. Albumin is 3.6. Cholesterol is 182. Vitamin B12 is 579. Folate is 7.7. Microbiology; blood culture, sputum culture, there is no growth. IMPRESSION AND PLAN: Exacerbation of chronic obstructive lung disease with interstitial infiltrate, pulmonary fibrosis, also has a new lung nodule on the right side, coronary artery disease, bronchiectasis, coronary stents, hyperlipidemia, anxiety disorder. I had a long discussion with the patient about lung nodule, possible diagnostic therapeutic maneuver. He choose to follow up in couple of months, does not want any biopsy, understanding risk benefit ratio. Continue steroids. Continue antibiotics, inhaled bronchodilator, gastric prophylaxis. Flomax is added to his medication. Follow up electrolytes in the morning. Thank you and we will follow with you. Emani Phipps MD
[2018-05-10] MEDS: Albuterol-Ipratrop 3 mg / 0.5 (3 ml) UD IH PRN ×2 (01:51→19:51)
[2018-05-10] MEDS: Pantoprazole 40 mg EC Tab PO SCH (05:24)
[2018-05-10] MEDS: Insulin Lispro (humaLOG) LOW Coverage SC SCH ×5 (07:02→21:38)
[2018-05-10] MEDS: Acetylcysteine 20% Inhal Soln (4ml) IH SCH ×2 (07:25→19:51)
[2018-05-10] MEDS: Arformoterol 15 mcg/2 ml Inh Sol IH SCH ×2 (07:25→19:51)
--- NOTE | 2018-05-10 08:40 | PN ---
Copied To: Sanna De Santiago MD Attending MD: Sanna De Santiago MD DATE: 05/09/2018 SUBJECTIVE: The patient is 77 years old male. The patient is seen and examined on the bedside, looking comfortable. Cough is better, shortness of breath. No nausea, vomiting or diarrhea. No hematuria or hematochezia. No swelling of the leg. No chest pain. No palpitation. PHYSICAL EXAMINATION: VITAL SIGNS: Temperature 98.4, pulse 100, blood pressure 107/63, respiratory rate 20. HEENT: Head normocephalic, atraumatic. Eyes: PERRLA. Extraocular muscles intact. Conjunctivae clear. Nose patent. Mucous membrane moist. NECK: Supple. No carotid bruit, JVD or thyromegaly. CHEST: Bilaterally symmetrical. HEART: S1 and S2 positive. LUNGS: Clear to auscultation. ABDOMEN: Soft. Bowel sounds positive. No organomegaly. EXTREMITIES: No edema. No cyanosis. NEUROLOGICAL: The patient is awake and alert. Moving all 4 extremities. No focal deficit. MEDICATIONS: Acetylcysteine, Ambien, Brovana, Claritin, DuoNeb, Ecotrin, Flomax, insulin, Levaquin, Protonix, Singulair, Solu-Medrol, theophylline, LABORATORY DATA: White blood cells 9.4, hemoglobin 14.3, hematocrit 43.1, platelets 205. Glucose 134, 137, 79, 112. ASSESSMENT AND PLAN: Mr. Morgan Flores is 77 years old male with hyperglycemia; came with exacerbation of chronic obstructive lung disease; interstitial infiltrates; pulmonary fibrosis; has lung nodule; coronary artery disease; status post cardiac stenting; bronchiectasis; hypercholesterolemia; anxiety, prolonged; the patient had long history of copd , was getting prednisone at home, now started on Solu-Medrol. Inhaled bronchodilators. Gastrointestinal and deep vein thrombosis prophylaxes. Butadiene Convertor Operator is on the case. Repeat labs. We will follow up. Sanna De Santiago MD MTDChevy
[2018-05-10] MEDS: levoFLOXacin 750 MG TAB PO SCH (10:08)
[2018-05-10] MEDS: MethylPREDNISolone 40 mg Vial IVP SCH ×3 (10:09→17:52)
[2018-05-10] MEDS: Theophylline 100mg ER 24 hrs Cap PO SCH (10:47)
--- NOTE | 2018-05-10 19:30 | PN ---
Copied To: Emani Phipps MD Attending MD: Emani Phipps MD DATE: 05/10/2018 PULMONARY PROGRESS NOTE REFERRING PHYSICIAN: Sanna De Santiago MD SUBJECTIVE: He is sitting side of the bed. Night was unremarkable. Still have cough, sputum production, short of breath. No nausea. No vomiting. No diarrhea. Noted pain or leg swelling. Wants to go home tomorrow. OBJECTIVE: GENERAL: In no acute distress. VITAL SIGNS: Temperature is 98, heart rate 87, respiratory rate is 20, blood pressure 97/60, pulse ox 97% on 2 liters nasal cannula. HEENT: Moist mucous membranes. No ulcer or thrush noted. NECK: Supple. No JVD. LUNGS: Have bilateral wheezing, respiratory rate, prolonged phase. HEART: S1 and S2. ABDOMEN: Soft, nontender. No organomegaly. EXTREMITIES: There is no edema. NEUROLOGICAL: Awake and alert. Follows simple command. MEDICATIONS: He is on Mucomyst inhaled twice a day, Ambien 5 mg at bedtime p.r.n., Brovana inhaled twice a day, Claritin 10 mg daily, DuoNeb every .6 hours p.r.n., Ecotrin 81 mg daily, Flomax 0.4 mg daily, insulin coverage, Levaquin 750 mg daily, Protonix 40 mg daily, Singulair 10 mg daily, Solu-Medrol 40 mg three times a day, Brett-Dur 200 mg daily. .LABORATORY DATA: Shows blood sugar this morning is 86. Sputum and Gram-negative rods. Blood culture has been negative. IMPRESSION AND PLAN: Exacerbation of chronic obstructive lung disease, has interstitial infiltrate, history of pulmonary fibrosis. Has a new lung nodule on the right side, coronary artery disease with coronary stent in the past, hyperlipidemia, anxiety disorder. The patient demanding that he wants to leave tomorrow by 11 o'clock. Recommended that the patient should go to subacute because of he lives alone and severe lung disease. He is insisting he will not go to subacute. Understand risk of staying alone at home with severe lung disease and exacerbation. Spoke to nursing staff, also spoke to nurse practitioner on the floor. If he leaves tomorrow, may go home on prednisone 40 mg for 3 days and then prednisone 20 mg 3 days, then he come back to 10 mg daily. Finish off Levaquin total of 7 days. Rest of the home medication, he will continue. Fall precaution. Emani Phipps MD
[2018-05-11] MEDS: Pantoprazole 40 mg EC Tab PO SCH (05:33)
--- NOTE | 2018-05-11 06:21 | PN ---
DATE: 05/10/2018 SUBJECTIVE: Patient is a 77-year-old male. Patient was seen and examined on the bedside on 05/10/2018. Patient was sitting on the chair, looking comfortable. Cough is better. Shortness of breath is better. No fever. No chills. No chest pain. No headache. No dizziness. PHYSICAL EXAMINATION: VITAL SIGNS: Temperature 98, heart rate 87, respiratory rate 20, blood pressure 97/60, pulse oximetry 97% on 2 liters nasal cannula. HEENT: Head: Normocephalic, atraumatic. Eyes: PERRLA. Extraocular muscles intact. Conjunctivae clear. Nose patent. Mucous membrane moist. NECK: Supple. No carotid bruit. No JVD or thyromegaly. LUNGS: Have bilateral wheezing. Respiratory prolonged phase. HEART: S1 and S2 positive. ABDOMEN: Soft and nontender. No organomegaly. EXTREMITIES: No edema. No cyanosis. NEUROLOGIC: Patient is awake and alert. Follows simple command. Oriented x3. MEDICATIONS: Mucomyst, Ambien, Brovana, Claritin, DuoNeb, Ecotrin, Flomax, insulin coverage, Levaquin, Protonix, Singulair, Solu-Medrol, Brett-Dur. LABORATORY DATA: We do not have recent lab today, but I reviewed old labs. Sugar is 86. Sputum has Gram-negative rods. Blood culture is negative. ASSESSMENT AND PLAN: Mr. Morgan Flores is a 77-year-old male came with exacerbation of chronic obstructive lung disease, has interstitial infiltrates, history of pulmonary fibrosis, has lung density on the right side, coronary artery disease with cardiac stenting, hypercholesterolemia, anxiety disorder. Patient is getting chest physical therapy. Patient is on high dose of steroids. Plan is to send the patient to subacute rehab because patient lives alone and even his homemaker is out of country and patient refuse go to subacute. Understanding risk of staying alone and not getting physical therapy. Length of time discussion done with nurse practitioner, Edwina. Even she tried her best to send the patient to Transitional Care Unit. , he wants to go home with prednisone 40 mg for 3 days and then tapering doses. We will continue Levaquin. Fall precautions. Physical therapy. Noncompliant. We will continue educating the patient. We will follow up. Sanna De Santiago MD [facility] # [id number]
[2018-05-11] MEDS: Arformoterol 15 mcg/2 ml Inh Sol IH SCH (07:12)
[2018-05-11] MEDS: Acetylcysteine 20% Inhal Soln (4ml) IH SCH (07:12)
[2018-05-11] MEDS: Insulin Lispro (humaLOG) LOW Coverage SC SCH ×2 (08:08→13:43)
[2018-05-11 08:39] VITALS: RESP 20
[2018-05-11] MEDS: MethylPREDNISolone 40 mg Vial IVP SCH ×2 (10:10→13:44)
[2018-05-11] MEDS: Theophylline 100mg ER 24 hrs Cap PO SCH (10:10)
[2018-05-11] MEDS: levoFLOXacin 750 MG TAB PO SCH (10:10)
[2018-05-11 15:21] VITALS: BP 105/56; PULSE 102; TEMP 98.9; O2SAT 99
== END 2018-05-11 17:02 | disposition home or self-care (01) | DRG 192 ==
LOC: ED 08:46 → ERH 10:55 → 5RNO 11:52
PROVIDERS: ADMIT Internal Medicine; ATTEND Internal Medicine
DX: J44.1 Chronic obstructive pulmonary disease with (acute) exacerbation (principal); J84.10 Pulmonary fibrosis, unspecified; I25.10 Atherosclerotic heart disease of native coronary artery without angina pectoris; I49.3 Ventricular premature depolarization; N40.0 Benign prostatic hyperplasia without lower urinary tract symptoms; F41.9 Anxiety disorder, unspecified; E09.65 Drug or chemical induced diabetes mellitus with hyperglycemia; T38.0X5A Adverse effect of glucocorticoids and synthetic analogues, initial encounter; R91.1 Solitary pulmonary nodule; E78.5 Hyperlipidemia, unspecified; E78.00 Pure hypercholesterolemia, unspecified; Z85.828 Personal history of other malignant neoplasm of skin; Z87.891 Personal history of nicotine dependence; Z91.19 Patient's noncompliance with other medical treatment and regimen; Z95.5 Presence of coronary angioplasty implant and graft; Z99.81 Dependence on supplemental oxygen

== ENCOUNTER 2018-05-15 19:27 | Inpatient (IN) | payer OTHER, MEDICAID ==
[2018-05-15 20:07] VITALS: BMI 19.4
[2018-05-15] MEDS ORDERED: Fluticasone Nasal 50 mcg/Spray NS PRN (20:08)
[2018-05-15] MEDS: Albuterol-Ipratrop 3 mg / 0.5 (3 ml) UD IH PRN (20:30)
[2018-05-15] MEDS ORDERED: TOBRAMYCIN 40 MG/ML IV SCH (22:00)
[2018-05-16] MEDS: Albuterol-Ipratrop 3 mg / 0.5 (3 ml) UD IH PRN (10:51)
[2018-05-16] MEDS: POLYETHYLENE GLYCOL 3350 17 GM/Dose PACKET PO SCH (11:09)
[2018-05-16] MEDS: Theophylline 100mg ER 24 hrs Cap PO SCH (11:11)
--- NOTE | 2018-05-17 03:51 | CON ---
DATE: 05/16/2018 LOCATION: The patient seen earlier this morning in room 315. CHIEF COMPLAINT: Weakness times several days. HISTORY OF PRESENT ILLNESS: This is a 77-year-old male seen earlier this morning in room 315 with past medical history significant for PENICILLIN ALLERGY, AMPICILLIN ALLERGY, SULFA ALLERGY, chronic obstructive lung disease, coronary artery disease, nephrolithiasis, history of skin cancer and grew Pseudomonas on previous admission from the sputum, MULTIPLE ANTIBIOTIC ALLERGIES and resistant to multiple allergies, and organism, the Pseudomonas was resistant, now transferred to transitional care. REVIEW OF SYSTEMS: Reveals no fevers, no chills at this time. No nausea or vomiting. A 12-point review of systems is performed. PAST MEDICAL HISTORY: Significant for chronic obstructive lung disease, coronary artery disease, nephrolithiasis, BPH, skin cancer, bronchitis, and acute exacerbation of COPD with Pseudomonas fluorescens in the sputum, multiresistant. PAST SURGICAL HISTORY: Significant for cardiac catheterization with stent placement. ALLERGIES: ALLERGIC TO PENICILLIN, AMPICILLIN AND SULFA. PHYSICAL EXAMINATION: GENERAL: The patient is in bed in no acute distress. VITAL SIGNS: With a temperature of 97, heart rate of 80, respiratory rate of 18, blood pressure is 100/60. HEENT: Unremarkable. NECK: Supple. LUNGS: Have decreased breath sounds. HEART: Normal S1, S2. ABDOMEN: Soft, nontender. No rebound or guarding. LABORATORY EXAMINATION: Reveals a white count of 5.8, hemoglobin of 13, platelets of 221. BUN of 21, creatinine of 0.8 and the microbiology reveals the blood cultures are negative. The sputum culture is pending. Sputum culture from earlier in 05/08/2018 reveals the Pseudomonas fluorescens, moderate growth and sensitivity is noted at ceftazidime and avibactam sensitive; however, is sensitive to imipenem, gentamicin is resistant, aztreonam is resistant. ASSESSMENT AND PLAN: A 77-year-old male seen earlier today in 315 with chronic bronchitis with acute exacerbation of chronic obstructive pulmonary disease with Pseudomonas fluorescens, multidrug resistant, must rule out underlying pneumonia in a patient with chronic obstructive lung disease, coronary artery disease, nephrolithiasis, skin cancer, benign prostatic hypertrophy and bronchitis, currently on tobramycin day #4, would complete 5-7 days. As per the patient, when he got penicillin from previously had difficulty breathing and review of medications reveals the patient is on tobramycin 60 mg IV every 8. Of note is tobramycin penetration and tissue concentration in the lung is extremely poor. We will follow the creatinine closely and we will also order a procalcitonin. We will discuss with Pulmonary regarding the use of tobramycin in this patient, concerned about toxicity. The patient's CAT scan of the chest from 05/07 is reviewed and the patient also had a chest x-ray on 05/12, extensive chronic obstructive pulmonary disease, no active disease is noted. Dr. Phipps's note from yesterday is reviewed in the acute care. We will follow with you. We will check on the procalcitonin. Shelton Patel MD
--- NOTE | 2018-05-17 05:58 | CON ---
DATE: 05/16/2018 PULMONARY CONSULTATION REFERRING PHYSICIAN: Sanna De Santiago MD REASON FOR CONSULTATION: Chronic obstructive lung disease, has a multidrug assistance, pseudomonas infection, HISTORY OF PRESENT ILLNESS: This is a [id number] gentleman well known to me from office and previous admission, has a severe obstructive lung disease, found to have a multi-drug resistance pseudomonas infection with a new right lung infiltrate versus nodule, has a cough, shortness of breath, wheezing, admitted to acute site of the hospital. He is allergic to Bactrim as well as penicillin. He was started on tobramycin, which he is tolerating well. Issue is he has a very poor veins, transfer to [facility] for continued care. Does have a cough, sputum production. No nausea, no vomiting, no diarrhea, leg pain, leg swelling. PAST MEDICAL HISTORY: As per history of present illness and also has a lung nodule and BPH. SOCIAL HISTORY: Stopped smoking many years ago. Denied any alcohol use. ALLERGIES: ALLERGY TO AMPICILLIN, PENICILLIN, SULFA, ALSO HE THINKS HE IS ALLERGIC TO ZITHROMAX. MEDICATIONS: He is on Claritin 10 mg daily, DuoNeb every 4 hour p.r.n., Flomax 0.4 mg daily, Flonase one spray each nostril daily, Lipitor 10 mg daily, MiraLax 17 g daily, Pepcid 20 mg twice a day, prednisone 30 mg daily, theophylline 200 mg daily, tobramycin 60 mg every 8 hour, Tylenol on p.r.n. basis. REVIEW OF SYSTEMS: No headache. No rhinitis. Has cough, shortness of breath, sputum production. No chest pain. No nausea. No vomiting. No diarrhea. No leg pain or leg swelling. Complaining of multiple skin irritation from IV access. PHYSICAL EXAMINATION: VITAL SIGNS: Temperature is 98, heart rate is 95, respiratory rate is 20, blood pressure 105/67, pulse ox 96% on 2L nasal cannula. HEENT: Moist mucous membrane. No ulcer or thrush noted. NECK: Supple. No JVD. LUNGS: Bilateral diffused wheezing, prolonged expiratory phase. HEART: S1 and S2. ABDOMEN: Soft, nontender. No organomegaly. EXTREMITIES: No edema. NEUROLOGIC: Awake, alert, follows simple command. LABORATORY DATA: Shows hemoglobin 13.4, hematocrit 41.6, WBC 5.8, platelet is 221. Sodium 141, potassium 3.9, chloride 102, bicarbonate is 33, BUN 21, creatinine 0.8. Last sputum send 05/15/2018 shows few gram positive cocci in pairs and chains and also moderate gram positive cocci in clusters. Cultures are still pending. Blood cultures are negative. IMPRESSION AND PLAN: Chronic obstructive lung disease, pulmonary infiltrate, new right side lung nodule cannot rule pneumonia, coronary artery disease, history of coronary stent, has a multi-drug resistance pseudomonas with multiple energies including penicillin and sulfa. So, patient is continued on tobramycin. We will try to get a PICC line to make it ease because patient has very poor veins, spoke to nursing staff. Thank you and we will follow with you. Emani Phipps MD
[2018-05-17 06:55] LABS: HEMOGLOBIN 13.7 g/dL (14.0-18.0); MEAN CELL VOLUME 87.7 fl (80.0-105.0); MEAN PLATELET VOLUME 8.9 fl (7.0-11.0); RBC 4.73 10^6/uL (3.5-6.1); RED CELL DISTRIBUTION WIDTH 13.7 % (11.5-14.5); WHITE BLOOD COUNT 6.9 10^3/ul (4.5-11.0)
[2018-05-17 07:03] LABS: BLOOD UREA NITROGEN 24 mg/dL (7-21); CALCIUM 8.6 mg/dL (8.4-10.5); GFR NON-AFRICAN AMERICAN > 60
[2018-05-17] MEDS: Albuterol-Ipratrop 3 mg / 0.5 (3 ml) UD IH PRN ×4 (07:21→21:30)
[2018-05-17] MEDS: Theophylline 100mg ER 24 hrs Cap PO SCH (09:39)
[2018-05-17] MEDS: POLYETHYLENE GLYCOL 3350 17 GM/Dose PACKET PO SCH (09:40)
--- NOTE | 2018-05-17 16:30 | CP.PCM.PN ---
Subjective - Date & Time of Evaluation Date of Evaluation: 05/17/18 Time of Evaluation: 11:25 - Subjective Subjective: Still has cough but feels little better, no fevers, agitated about the dose of his Prednisone increasing and he was not told about it. Objective - Vital Signs/Intake and Output Vital Signs (last 24 hours): Temp Pulse Resp BP Pulse Ox 98.5 F 95 H 22 105/67 94 L 05/16/18 16:00 05/16/18 16:00 05/16/18 16:00 05/16/18 16:00 05/16/18 16:00 Intake and Output: 05/17/18 05/17/18 06:59 18:59 Intake Total 360 Output Total 350 Balance 10 - Medications Medications: Current Medications Acetaminophen (Tylenol 325mg Tab) 650 mg PO Q6H PRN; Protocol PRN Reason: Headache Albuterol/Ipratropium (Duoneb 3 Mg/0.5 Mg (3 Ml) Ud) 3 ml IH Q4H PRN; Protocol PRN Reason: Cough Last Admin: 05/17/18 07:21 Dose: 3 ml Atorvastatin Calcium (Lipitor) 10 mg PO 0800 RUBIN PRN Reason: Protocol Last Admin: 05/17/18 08:07 Dose: 10 mg Famotidine (Pepcid) 20 mg PO Q12 RUBIN PRN Reason: Protocol Last Admin: 05/17/18 09:39 Dose: 20 mg Fluticasone Propionate (Flonase) 1 actuation NS DAILY PRN; Protocol PRN Reason: Nasal congestion Last Admin: 05/17/18 09:39 Dose: 1 spr Tobramycin Sulfate 60 mg/ (Sodium Chloride) 101.5 mls @ 100 mls/hr IV Q8 [facility] Last Admin: 05/17/18 05:38 Dose: 100 mls/hr Loratadine (Claritin) 10 mg PO DAILY RUBIN PRN Reason: Protocol Last Admin: 05/17/18 09:40 Dose: 10 mg Polyethylene Glycol (Miralax) 17 gm PO DAILY RUBIN PRN Reason: Protocol Last Admin: 05/17/18 09:40 Dose: 17 gm Prednisone (Prednisone Tab) 50 mg PO 0800 RUBIN PRN Reason: Protocol Last Admin: 05/17/18 08:07 Dose: 50 mg Tamsulosin HCl (Flomax) 0.4 mg PO 1830 RUBIN PRN Reason: Protocol Last Admin: 05/16/18 12:15 Dose: 0.4 mg Theophylline (Brett-24) 200 mg PO DAILY RUBIN PRN Reason: Protocol Last Admin: 05/17/18 09:39 Dose: 200 mg - Labs Labs: 05/17/18 06:30 05/17/18 06:30 - Constitutional Appears: No Acute Distress, Cachectic, Chronically Ill - Head Exam Head Exam: NORMAL INSPECTION - ENT Exam ENT Exam: Mucous Membranes Moist - Neck Exam Neck Exam: absent: Meningismus - Respiratory Exam Respiratory Exam: Decreased Breath Sounds - Cardiovascular Exam Cardiovascular Exam: +S1, +S2 - GI/Abdominal Exam GI & Abdominal Exam: Soft. absent: Tenderness Assessment and Plan - Assessment and Plan (Free Text) Plan: Assessment chronic bronchitis with acute exacerbation of COPD with Pseudomonas fluorescens in sputum (multidrug-resistant), unlikely pneumonia COPD CAD S/P PCI history of nephrolithiasis history of skin cancer BPH Plan was given Gentamicin in ED but it is resistant to it; on Tobramycin by Pulmonary day 5 for 5-7 days and will continue to monitor clinically - will check sputum cx as per patient, when he got Penicillin previously, he had difficulty breathing; difficult to get proper dosing Colistin as well so options are limited - penetration of aminoglycosides to the lungs is not as good as other antibiotics but options are limited - will discuss with Pulmonary
--- NOTE | 2018-05-17 20:06 | PN ---
DATE: 05/17/2018 PULMONARY PROGRESS NOTE REFERRING PHYSICIAN: Sanna De Santiago MD SUBJECTIVE: He is sitting at the side of the bed. Night was unremarkable. His prednisolone was increased to 50 mg by me yesterday for this morning, but he refused to take it, finally he took 30 mg, receiving antibiotics, still has a cough and sputum production. No nausea. No vomiting, diarrhea, leg pain, or leg swelling. OBJECTIVE: GENERAL: In no acute distress. VITAL SIGNS: Temperature is 98, heart rate is 95, respiratory rate is 22, blood pressure 105/67, pulse ox 94% on 2L nasal cannula. HEENT: Moist mucous membranes. No ulcer or thrush noted. NECK: Supple. No JVD. LUNGS: Prolonged expiratory phase with wheezing. HEART: S1 and S2. ABDOMEN: Soft, nontender. No organomegaly. EXTREMITIES: No edema. NEUROLOGICAL: Awake and alert. Follows simple command. MEDICATIONS: He is on Claritin 10 mg daily, DuoNeb every 4 hours p.r.n., Ecotrin 81 mg daily, Flomax 0.4 mg daily, Flonase one spray each nostril daily p.r.n., atorvastatin 10 mg daily, MiraLax 17 g daily, Pepcid 20 mg twice a day, prednisone 30 mg daily, theophylline 200 mg daily, tobramycin 60 mg every 8 hours, Tylenol on p.r.n. basis. LABORATORY DATA: Shows hemoglobin 13.7, hematocrit 41.5, WBC 6.9, and platelets 257. Sodium 137, potassium 3.9, chloride 101, bicarbonate 31. BUN 24, creatinine 0.8. Procalcitonin less than 0.05. IMPRESSION AND PLAN: Chronic obstructive lung disease with acute bronchitis with multidrug resistant pseudomonas, has a new right lower lobe nodule, coronary artery disease, history of coronary stent. I had a long discussion with the patient, spoke about his disease, risks involved with the multidrug resistant pseudomonas, needs to be treated for about 7 days with antibiotics, Infectious Disease on board. Spoke about prednisone and its side effects. Patient expressed understanding, agreed with the present treatment. Continue inhaled bronchodilator. Thank you and we will follow with you. Emani Phipps MD
[2018-05-18] MEDS: Albuterol-Ipratrop 3 mg / 0.5 (3 ml) UD IH PRN ×2 (07:13→13:42)
--- NOTE | 2018-05-18 08:08 | HP ---
CHIEF COMPLAINT: Coughing, shortness of breath, wheezing. Mr. Morgan Flores is a 77-year-old male, seen and examined on the bedside by me on 05/17/2018. HISTORY OF PRESENT ILLNESS: Mr. Morgan Flores is a 77-year-old male with past medical history of COPD, asthma, noncompliant, has severe obstructive lung disease, found to have multi-drug resistant pseudomonas infection with the right lower lung infiltrate versus nodule, has cough, shortness of breath, wheezing, admitted to [facility]. HE IS ALLERGIC TO BACTRIM WELL PENICILLIN. He was started on tobramycin, which he tolerated very well. Issue is he has very poor wheeze, transferred to TCU for continuity of care. Presently has less shortness of breath. No nausea, vomiting, or diarrhea. No hematuria or hematochezia. No headache. No dizziness. No chest pain. No palpitation. PAST MEDICAL HISTORY: As above. COPD, asthma, BPH. SOCIAL HISTORY: Never smoked. No drug. No ethanol. ALLERGIES: THE PATIENT IS ALLERGIC WITH AMPICILLIN, PENICILLIN, SULFA ANTIBIOTICS. REVIEW OF SYSTEMS: The patient was seen and examined on the bedside, looking comfortable. No nausea, vomiting, or diarrhea. No hematuria or hematochezia. No swelling of legs. No chest pain. No palpitation. PHYSICAL EXAMINATION: VITAL SIGNS: Temperature 98.5, pulse 60, blood pressure 90/61, respiratory rate 22, pulse oximetry of 95%. HEENT: Head is normocephalic and atraumatic. Eyes: PERRLA. Extraocular muscles are intact. Conjunctivae are clear. Nose is patent. Mucous membranes are moist. NECK: Supple. No carotid bruits. No JVD or thyromegaly. CHEST: Bilaterally symmetrical. HEART: S1 and S2 positive. LUNGS: Clear to auscultation. ABDOMEN: Soft. Bowel sounds positive. No organomegaly. EXTREMITIES: No edema. No cyanosis. NEUROLOGIC: The patient is awake and alert. Moving all four extremities. No focal deficits. MEDICATIONS: Claritin, DuoNeb, Ecotrin, Flomax, Flonase, Lipitor, MiraLax, Pepcid, prednisone, theophylline, vancomycin. LABORATORY DATA: White blood cells 6.9, hemoglobin 13.7, hematocrit 41.1, and platelets 257. Procalcitonin is very low. BUN and creatinine are low also. ASSESSMENT AND PLAN: This is a patient with history of chronic obstructive pulmonary disease, asthma, noncompliant, urged to go home. The patient is seen by the Pulmonology, Dr. Phipps and Infectious Disease, Dr. Porfirio Son. The patient has chronic on acute bronchitis, exacerbation of chronic obstructive pulmonary disease, Pseudomonas fluorescens in the sputum, multi-drug resistant urinary tract infection, coronary artery disease, status post percutaneous coronary intervention, history of cholelithiasis, history of skin cancer, benign prostatic hypertrophy, history of nephrolithiasis, history of skin cancer. Was given gentamicin, now on tobramycin. need for 5 to 7 days. Continue monitoring the patient. We will check sputum. We will repeat labs. We will follow up. Sanna De Santiago MD DAVIDA
[2018-05-18] MEDS: Theophylline 100mg ER 24 hrs Cap PO SCH (11:00)
[2018-05-18] MEDS: POLYETHYLENE GLYCOL 3350 17 GM/Dose PACKET PO SCH (11:11)
[2018-05-18 16:22] VITALS: RESP 18; TEMP 97.8
[2018-05-18] MEDS ORDERED: POLYETHYLENE GLYCOL 3350 17 GM/Dose PACKET PO SCH (17:00)
--- NOTE | 2018-05-18 17:02 | PN ---
DATE: 05/18/2018 SUBJECTIVE: The patient is in bed, in no acute distress. PHYSICAL EXAMINATION VITAL SIGNS: Temperature is 98, blood pressure is 90/60, respiratory rate of 18. HEENT: Unremarkable. NECK: Supple. LUNGS: Have decreased breath sounds. HEART: Normal S1 and S2. ABDOMEN: Soft, nontender. LABORATORY DATA: Reveals the patient's white count of 6.9 and chemistries revealed the BUN is 24, creatinine of 0.8 The patient's procalcitonin is also low. Review of orders reveals the patient to be on tobramycin every 8 hours. ASSESSMENT AND PLAN: A 77-year-old male who has chronic bronchitis, acute exacerbation of chronic obstructive pulmonary disease with Pseudomonas fluorescens in the sputum, multi-drug resistant, chronic obstructive lung disease and currently on tobramycin, day #6, will be continued the antibiotic next 24-48 hours. Shelton Patel MD
[2018-05-18] MEDS ORDERED: TOBRAMYCIN INH SCH ×2 (20:00)
--- NOTE | 2018-05-19 00:56 | PN ---
DATE: 05/18/2018 PULMONARY PROGRESS NOTE REFERRING PHYSICIAN: Sanna De Santiago MD. SUBJECTIVE: He is sitting side of the bed, feels better, ambulated better. Cough is better. Still has some sputum. No nausea, no vomiting. No diarrhea, leg pain or leg swelling. OBJECTIVE: GENERAL: In no acute distress. VITAL SIGNS: Temperature is 98, heart rate is 115, respiratory rate is 18, blood pressure 137/74, pulse ox 95% on nasal cannula. HEENT: Moist mucous membranes. No ulcer or thrush. NECK: Supple. No JVD. LUNGS: Have a bilateral wheezing, scattered rhonchi. HEART: S1 and S2. ABDOMEN: Soft, nontender. No organomegaly. EXTREMITIES: No edema. NEUROLOGICAL: Awake, alert, follows simple commands. MEDICATIONS: He is on Claritin 10 mg daily, albuterol/Atrovent nebulizer every 4 hours p.r.n., Ecotrin 81 mg daily, Flomax 0.4 mg daily, Flonase one spray to each nostril daily, Lipitor 10 mg daily, MiraLax 17 g daily, Pepcid 20 mg twice a day, prednisone 30 mg daily, theophylline 200 mg daily, tobramycin 80 mg inhaled started twice a day, also tobramycin 60 mg IV every 8 hours, Tylenol p.r.n. basis. LABORATORY DATA: Reviewed. No new lab is available since yesterday. IMPRESSION AND PLAN: Chronic obstructive lung disease; further exacerbated with multi-drug resistant Pseudomonas. We will complete 7 days of IV antibiotics by tomorrow. Also started on inhaled tobramycin 80 mg inhaled twice a day, we will continue 28 days of therapy. We will taper down steroids down to his usual dose 10 mg over few days. Continue inhaled bronchodilator. Spoke to the patient in detail, treatment discussed, agree with the plan. Thank you and we will follow with you. Emani Phipps MD
--- NOTE | 2018-05-19 02:53 | PN ---
DATE: 05/18/2018 SUBJECTIVE: The patient is a 77-year-old male. Patient was seen and examined at the bedside on 05/18/2018. Looking comfortable. No hematuria or hematochezia. No swelling of the legs. No chest pain. No palpitation. Shortness of breath is better. Wheezing is better. Patient's fatigue is better. Did some physical therapy and felt better for that. PHYSICAL EXAMINATION: GENERAL: Temperature 98, blood pressure 90/60, respiratory rate 18, pulse 80. HEENT: Head: Normocephalic, atraumatic. Eyes: PERRLA. Extraocular muscles intact. Conjunctivae clear. Nose patent. Mucous membrane moist. NECK: Supple. No carotid bruit. No JVD or thyromegaly. CHEST: Bilaterally symmetrical. HEART: S1 and S2 positive. LUNGS: Clear to auscultation. ABDOMEN: Soft. Bowel sounds present. No organomegaly. EXTREMITIES: No edema. No cyanosis. NEUROLOGICAL: Patient is awake and alert. Moving all 4 extremities. No focal deficit. MEDICATIONS: Claritin, DuoNeb, Ecotrin, Flomax, Flonase, Lipitor, MiraLax, Pepcid, prednisone, theophylline, tobramycin, acetaminophen. LABORATORY DATA: White blood cell 6.9, hemoglobin 13.7, hematocrit 41.5, platelets 257. Sodium 137, potassium 3.9, BUN 24, creatinine 0.8. Glucose 75. ASSESSMENT AND PLAN: Mr. Morgan Flores is a 77-year-old male with anemia, chronic obstructive pulmonary disease, diabetes mellitus, came with acute exacerbation of chronic obstructive pulmonary disease with Pseudomonas fluorescens in the sputum, multidrug resistance, chronic obstructive lung disease, currently on tobramycin, day #6. We will continue antibiotics for next 24-[address] Patel. Discussion done with Dr. Phipps. We will do tapering dose of the steroid. Out of bed. Physical therapy. Gastrointestinal and deep venous thrombosis prophylaxes. Repeat labs. We will follow up. Sanna De Santiago MD
[2018-05-19] MEDS: Albuterol-Ipratrop 3 mg / 0.5 (3 ml) UD IH PRN ×2 (08:23→13:00)
[2018-05-19] MEDS: Theophylline 100mg ER 24 hrs Cap PO SCH (09:58)
--- NOTE | 2018-05-19 13:46 | CP.PCM.PN ---
Subjective - Date & Time of Evaluation Date of Evaluation: 05/19/18 Time of Evaluation: 11:55 - Subjective Subjective: Patient is feeling better, breathing better, cough is better, no fevers. Objective - Vital Signs/Intake and Output Vital Signs (last 24 hours): Temp Pulse Resp BP Pulse Ox 97.8 F 115 H 18 137/74 95 05/18/18 10:00 05/18/18 10:00 05/18/18 10:00 05/18/18 10:00 05/18/18 10:00 Intake and Output: 05/19/18 05/19/18 06:59 18:59 Intake Total 480 Output Total 400 Balance 80 - Medications Medications: Current Medications Acetaminophen (Tylenol 325mg Tab) 650 mg PO Q6H PRN; Protocol PRN Reason: Headache Albuterol/Ipratropium (Duoneb 3 Mg/0.5 Mg (3 Ml) Ud) 3 ml IH Q4H PRN; Protocol PRN Reason: Cough Last Admin: 05/18/18 13:42 Dose: 3 ml Aspirin (Ecotrin) 81 mg PO 0800 [facility] PRN Reason: Protocol Last Admin: 05/18/18 08:16 Dose: 81 mg Atorvastatin Calcium (Lipitor) 10 mg PO 2000 [facility] PRN Reason: Protocol Last Admin: 05/18/18 20:23 Dose: 10 mg Famotidine (Pepcid) 20 mg PO 1130,1700 [facility] PRN Reason: Protocol Last Admin: 05/18/18 17:26 Dose: 20 mg Fluticasone Propionate (Flonase) 1 actuation NS DAILY PRN; Protocol PRN Reason: Nasal congestion Last Admin: 05/17/18 09:39 Dose: 1 spr Tobramycin Sulfate 60 mg/ (Sodium Chloride) 101.5 mls @ 100 mls/hr IV Q8 [facility] Last Admin: 05/19/18 05:07 Dose: 100 mls/hr Loratadine (Claritin) 10 mg PO 2000 [facility] PRN Reason: Protocol Last Admin: 05/18/18 20:23 Dose: 10 mg Polyethylene Glycol (Miralax) 17 gm PO 1700 [facility] PRN Reason: Protocol Last Admin: 05/18/18 17:26 Dose: 17 gm Prednisone (Prednisone Tab) 30 mg PO DAILY [facility] Last Admin: 05/18/18 11:15 Dose: 30 mg Tamsulosin HCl (Flomax) 0.4 mg PO 1800 [facility] PRN Reason: Protocol Last Admin: 05/18/18 17:26 Dose: 0.4 mg Theophylline (Brett-24) 200 mg PO DAILY [facility] PRN Reason: Protocol Last Admin: 05/18/18 11:00 Dose: 200 mg Tobramycin Sulfate (Tobramycin) 80 mg INH [id number] [facility] - Labs Labs: 05/17/18 06:30 05/17/18 06:30 - Constitutional Appears: Cachectic, Chronically Ill - Head Exam Head Exam: NORMAL INSPECTION - Neck Exam Neck Exam: absent: Meningismus - Respiratory Exam Respiratory Exam: Decreased Breath Sounds - Cardiovascular Exam Cardiovascular Exam: +S1, +S2 - GI/Abdominal Exam GI & Abdominal Exam: Soft. absent: Tenderness Assessment and Plan - Assessment and Plan (Free Text) Plan: Assessment chronic bronchitis with acute exacerbation of COPD with Pseudomonas fluorescens in sputum (multidrug-resistant), unlikely pneumonia COPD CAD S/P PCI history of nephrolithiasis history of skin cancer BPH Plan was given Gentamicin in ED but it is resistant to it; on Tobramycin by Pulmonary day 7 for 5-7 days and will continue to monitor clinically - will d/c antibiotics within the next 24 hours - will check renal function through CMP today as per patient, when he got Penicillin previously, he had difficulty breathing; difficult to get proper dosing Colistin as well so options are limited - penetration of aminoglycosides to the lungs is not as good as other antibiotics but options are limited
[2018-05-19 16:16] VITALS: BP 84/52; PULSE 95; O2SAT 97
--- NOTE | 2018-05-19 23:08 | PN ---
DATE: 05/19/2018 PULMONARY PROGRESS NOTE REFERRING PHYSICIAN: Sanna De Santiago MD. SUBJECTIVE: He is lying in the bed, head at 45 degrees, doing well in therapy, walked much longer distance today. Still have a cough, sputum production. No nausea. No vomiting. No diarrhea. No leg pain or leg swelling. PHYSICAL EXAMINATION: GENERAL: In no acute distress. VITAL SIGNS: Temperature is 98, heart rate 95, respiratory rate is 18, blood pressure 137/74, pulse ox 95% on nasal cannula. HEENT: Moist mucous membrane. No ulcer or thrush noted. NECK: Supple. No JVD. LUNGS: Have a scattered rhonchi and crackles, prolonged expiratory phase. HEART: S1 and S2. ABDOMEN: Soft, nontender, no organomegaly. EXTREMITIES: No edema. NEUROLOGICAL: Awake, alert. Follows simple command. MEDICATIONS: He is on Claritin 10 mg daily, DuoNeb every 4 hours p.r.n., Ecotrin 81 mg daily, Flomax 0.4 mg daily, Flonase one spray to each nostril daily, Lipitor 10 mg daily, MiraLax 17 g daily, Pepcid 20 mg twice a day, prednisone 30 mg daily, theophylline 200 mg daily, tobramycin 80 mg twice a day, also started on tobramycin 60 mg IV twice a day, but tobramycin sulfate which is inhaled is 80 mg every 12 hours, and Tylenol p.r.n. basis. LABORATORY DATA: Reviewed. No new lab is available since yesterday. IMPRESSION AND PLAN: Chronic obstructive lung disease with exacerbation, found to have a multi-drug resistant Pseudomonas. He is allergic to Bactrim as well as penicillin. Seen by Infectious Diseases. Finished off his intravenous tobramycin today. Still having symptom of sputum production. Spoke to patient in detail. Ordered tobramycin inhaled twice a day for 28 days. Risks and benefits were explained to the patient. Needs PFT in few days as outpatient while on tobramycin to see if there is any improvement in inflammatory process and lung function. Effort is being made right now to get insurance approval for the inhaled tobramycin. If there is any interest, patient may go home without inhaled tobramycin, and hopefully will get by next week. According to nursing staff, the cost of inhaled tobramycin is about $10,000. Thank you and we will follow with you. Emani Phipps MD
== END 2018-05-19 16:30 | disposition home or self-care (01) | DRG 191 ==
LOC: TRCU 19:27
PROVIDERS: ADMIT Internal Medicine; ATTEND Internal Medicine
PROC: F07L6YZ Therapeutic Exercise Treatment of Musculoskeletal System - Lower Back / Lower Extremity using Other Equipment (ICD-10-PCS; principal; 2018-05-17)
PROC: F07Z9ZZ Gait Training/Functional Ambulation Treatment (ICD-10-PCS; 2018-05-18)
PROC: F07Z5ZZ Bed Mobility Treatment (ICD-10-PCS; 2018-05-19)
PROC: F07Z8FZ Transfer Training Treatment using Assistive, Adaptive, Supportive or Protective Equipment (ICD-10-PCS; 2018-05-19)
PROC: F08Z4ZZ Home Management Treatment (ICD-10-PCS; 2018-05-19)
DX: J44.1 Chronic obstructive pulmonary disease with (acute) exacerbation (principal); N39.0 Urinary tract infection, site not specified; J20.9 Acute bronchitis, unspecified; J44.0 Chronic obstructive pulmonary disease with (acute) lower respiratory infection; B96.5 Pseudomonas (aeruginosa) (mallei) (pseudomallei) as the cause of diseases classified elsewhere; Z16.24 Resistance to multiple antibiotics; D64.9 Anemia, unspecified; E11.9 Type 2 diabetes mellitus without complications; N40.0 Benign prostatic hyperplasia without lower urinary tract symptoms; I25.10 Atherosclerotic heart disease of native coronary artery without angina pectoris; Z88.1 Allergy status to other antibiotic agents; Z88.2 Allergy status to sulfonamides; Z95.5 Presence of coronary angioplasty implant and graft; Z88.0 Allergy status to penicillin; Z91.19 Patient's noncompliance with other medical treatment and regimen; Z87.891 Personal history of nicotine dependence; Z85.828 Personal history of other malignant neoplasm of skin; Z87.442 Personal history of urinary calculi